=== PATIENT | female | born 1935 | race Caucasian/White ===

== ENCOUNTER 2017-02-12 09:40 | Inpatient (IN) ==
[2017-02-12] MEDS ORDERED: KETOROLAC 30 MG/1 ML VIAL IV STA (10:46)
--- NOTE | 2017-02-12 10:52 | Emergency Department Note ---
Nikunj Palomares Brittany, am scribing for, and in the presence of, Chris Rodriguez MD 10:49. Michael Palomares Thomas, MD, personally performed the services described in this documentation, ascribed by Anali Calvin in my presence, and it is both accurate and complete . Arrival - Arrival Chief Complaint: Back Stated Complaint: back pain upper muscle weakness ED Nursing Triage Note: c/o mid-to upper back pain that started during the night., states she is having muscle spasms in her upper ext bilateral and lower ext bilateral., states she has recently had a medication change for her weakness., states the pain in the back is worse with any type of movement, " I can reach over to roll picker my water and it hurts"., Mode of Arrival: Ambulatory Limitations: No Limitations Source: Patient, RN Notes Reviewed - History of Present Illness HPI Narrative: Patient is a 81 y/o white female presenting to the ED with c/o upper back pain that began overnight. This back pain is worsened upon movement and inspiration. She reports having associated muscle spasms and weakness of bilateral upper extremities, left greater than right. Patient states that she has had a recent change in medication for muscle weakness. Patient reports that she has been wearing an OTC pain patch to the upper back and has taken 6 Extra Strength Tylenol since 299 this morning for this pain with little to no relief, rating current pain an 8/10 on a numeric pain scale. Patient states that she has ran a fever each night for the past few days, nausea, denies any cough, vomiting, abdominal pain, or urinary symptoms. Patient reports having a Bronchoscopy performed per physician of [facility] Pisano for further evaluation s/p ingestion of a pill in her windpipe, affecting her right lung. She notes a history of Pleurisy in her 50's. Patient reports swelling of the lower extremities, but notes that this is chronic and adds that she currently is on Prednisone therapy. Patient denies having any other complaints. Onset (ago): hour(s) Consistency: constant Severity: severe Severity scale (1-10): 8 Quality: aching Allergies/Adverse Reactions: Allergies Allergy/AdvReac Type Severity Reaction Status Date / Time ciprofloxacin [From Cipro] Allergy Mild ITCHING Verified 02/12/17 09:45 gabapentin [From Neurontin] Allergy Mild ITCHING Verified 02/12/17 09:45 acetaminophen Allergy ANAPHYLAXIS Verified 02/12/17 09:45 [From Lorcet ] hydrocodone Allergy ITCHING Verified 02/12/17 09:45 [From Lorcet ] tape Allergy BLISTER Uncoded 02/12/17 09:45 Home Medications: Home Medications Medication Instructions Recorded Confirmed Type Digoxin 125 mcg PO MOWEFR 11/01/14 02/12/17 History Ferrous Sulfate 325 mg PO TID 11/01/14 02/12/17 History Omeprazole [Prilosec] 40 - 60 mg PO DAILY 11/01/14 02/12/17 History Furosemide Tab [Lasix Tab] 20 mg PO BID 11/04/14 02/12/17 History Apixaban [Eliquis] 2.5 mg PO BID #60 tablet 05/12/15 02/12/17 Rx Cyanocobalamin Tab [Vitamin B12 1,000 mcg PO QOTHER DAY 08/26/15 02/12/17 History Tab] Albuterol Inhaler [Proventil 2 puff INH Q6H PRN 03/11/16 02/12/17 History Inhaler] Biotin 1 mg PO DAILY 03/11/16 02/12/17 History Potassium Chloride [Klor-Con M20] 20 meq PO BID 03/11/16 02/12/17 History Metoprolol Succinate 75 mg PO QAM 02/12/17 02/12/17 History Review of System - Review of System 12 point system: reviewed and no additional remarkable complaints except as stated - Review of System Constitutional: Present: fever, weakness Head/Ears/Nose/Throat: Absent: sore throat Respiratory: Present: respiratory distress. Absent: cough Cardiovascular: Absent: palpitations, edema Gastrointestinal: Present: nausea. Absent: vomiting Genitourinary female: Absent: dysuria, frequency, urgency Musculoskeletal: Present: arm pain, back pain Medical,Surgical,& Family Hx - Medical History Cardio: History of: Cardiac Dysrhythmia (A-FIB, SVT), Hypertension, Pacemaker, Cardiovascular Problems (psvt. Patient had ablation done at [facility] twice) Psychological: History of: Anxiety Disorders Neurology: History of: Cerebrovascular Accident No history of: Seizures, Vertigo HEENT: History of: HEENT Problems (CHAD cataract removal) Rheumatology: History of;: Rheumatological Problems (temporal arteritis) Respiratory: No history of: Respiratory Problems Genitourinary: History of: Recurring Urinary Tract Infections No history of: Kidney Stones Gastrointestinal: History of: GERD, Polyps (IN PAST) Musculoskeletal: History of: Musculoskeletal Problems (rt knee surgery and orthoscopic) Hematology: History of: Anemia, Bleeding Problems (reports history of blood transfusion 1950 with no reactions) Other: No history of: Anesthesia Reactions, Malignant Hyperthermia - Surgical History Cardiac Surgeries: Sugical HX of: Cardiac Catheterization Patient Denies: Carotid Endarterectomy Thoracic Surgeries: Patient denies;: Kidney (Renal Surgery), Organ Transplant Neurologic Surgeries: Patient denies: Neurologic Surgery HEENT Surgeries: Patient denies: Carotid Endarterectomy, Eye Surgery, Tonsilectomy & Adenoidectomy Abdominal Surgeries: Surgical HX of: Appendectomy, Cholecystectomy, Colonoscopy , EGD Reproductive Surgeries: Surgical HX of;: Genitourinary Surgery (bladder suspension), Hysterectomy, Tubal Ligation Orthopedic Surgeries: Surgical HX of;: Total Knee Replacement (total right. l. knee arthorscopy) - Family History Family History: Reports;: Family Cancer (father (LUNG)), Family Hypertension ( Father) - Social History Smoking Status: Never smoker Frequency of Alcohol Use: None Type of Drug Use: None Exam Vital Signs: Vital Signs Temperature 97.9 F 02/12/17 10:15 Pulse Rate 88 02/12/17 10:15 Respiratory Rate 16 02/12/17 10:15 Blood Pressure 140/70 02/12/17 10:15 O2 Sat by Pulse Oximetry 97 02/12/17 09:40 - General General appearance: alert, in no apparent distress - Head Head exam: Present: atraumatic, normocephalic - Eye Eye exam: Present: EOMI. Absent: conjunctival injection, periorbital swelling, periorbital tenderness - ENT ENT exam: Present: mucous membranes moist - Neck Neck exam: Present: trachea midline - Chest Chest inspection: Present: symmetric chest wall rise, other (visible discomfort with inspiration) - Respiratory Respiratory exam: Present: normal lung sounds bilaterally. Absent: respiratory distress - Cardiovascular Cardiovascular exam: Present: regular rate, irregular rhythm (irregular rhythm consistent with sinus arrhythmia), normal heart sounds. Absent: normal rhythm - Abdominal Exam Abdominal exam: Present: soft. Absent: distention, tenderness - Extremities Exam Extremities exam: Present: normal capillary refill. Absent: pedal edema, calf tenderness - Back Exam Back exam: Absent: tenderness, muscle spasm, paraspinal tenderness, vertebral tenderness, rashes - Neurological Exam Neurological exam: Present: alert, oriented X3. Absent: motor sensory deficit - Psychiatric Psychiatric exam: Present: normal affect, normal mood - Skin Skin exam: Present: warm, dry, normal color. Absent: rash Course - Reevaluation(s) Reevaluation #1: pain improved, generalized weakness unchanged Time: 13:15 - Consultations Consultation #1: Hospitalist Time: 13:25 Results - Labs CBC & BMP: 02/12/17 11:48 02/12/17 11:48 Lab Results: I have reviewed the patients labs Labs: Laboratory Tests 02/12/17 11:48 WBC 6.0 RBC 1.99 L Hgb 7.4 L Hct 22.4 L MCV 112.6 H MCH 37 H RDW 19.5 H Plt Count 406 H MPV 12.1 H Neut % (Auto) 76.9 H Lymph % (Auto) 11.1 L Lymph # (Auto) 0.7 L Laboratory Tests 02/12/17 11:48 D-Dimer, Quantitative 0.7 Laboratory Tests 02/12/17 11:48 Sodium 133 L Potassium 4.4 Chloride 96 L Carbon Dioxide 29 BUN 19 H Creatinine 1.20 H Glucose 137 H Calculated Osmolality 269.4 L Globulin 3.7 H Albumin/Globulin Ratio 0.9 L - EKG EKG results: interpreted by ERMD, normal axis - Impressions AF with QRS aberrancy vs ventricular ectopy vs ventricular pacer escape beats; NSSTTC; previous EKG paced - Diagnostic Findings Procedure: Chest x-ray: report reviewed by me (Mild platelike subsegmental atelectasis right lung base. Cardiomegaly without overt CHF.), X-ray: report reviewed by me (Thoracic Spine XR: Mild T6 compression fracture which appears chronic, but was not present on March 03, 2016. Osteopenia. Scattered degenerative changes. Pacemaker.) Disposition Clinical Impression: Compression fracture of thoracic vertebra, Generalized weakness, Anemia Case discussed with: patient, patient's family Disposition: Still a Patient Time of Disposition: 13:56
[2017-02-12] MEDS ORDERED: KETOROLAC 30 MG/1 ML VIAL ONE (11:00)
--- NOTE | 2017-02-12 11:41 | XRay Report ---
History: Thoracic pain and cough Date: 02/12/2017 Study: Chest x-ray PA and lateral Comparison exam: Portable chest x-ray March 11, 2016 There is stable mild cardiomegaly. The mediastinal contours are unchanged. The pulmonary vasculature is not engorged. A left subclavian transvenous pacemaker is intact. There is some platelike subsegmental atelectasis in the right lung base. The lungs are otherwise well-expanded and clear. There is no pleural effusion. There is osteopenia and mild thoracic spondylosis. Impression: Mild platelike subsegmental atelectasis right lung base. Cardiomegaly without overt CHF. PROCEDURE INTERPRETED AT [facility] [place] DEPARTMENT OF RADIOLOGY Final Report Signed by: Dr. Rubina Goodson
--- NOTE | 2017-02-12 11:45 | XRay Report ---
History: Back pain Date: 02/12/2017 Study: Thoracic spine AP and lateral Comparison exam: Chest CT March 03, 2016 There is mild anterior wedge compression of what is thought to be the T6 vertebral body on the lateral view. This appears chronic, but was not present in February 2016. There is osteopenia. There is mild thoracic spondylosis and mild scattered degenerative disc narrowing. There is no focal lytic or blastic lesion. A left subclavian transvenous pacemaker is in place. Impression: Mild T6 compression fracture which appears chronic, but was not present on March 03, 2016. Osteopenia. Scattered degenerative changes. Pacemaker PROCEDURE INTERPRETED AT [facility] DEPARTMENT OF RADIOLOGY Final Report Signed by: Dr. Rubina Goodson
[2017-02-12 11:59] LABS: Basophils % 0.7 % (0.0-0.8); Eosinophils # 0.1 10*3/uL (0.0-0.87); Eosinophils % 2.3 % (0.00-10.9); Hematocrit 22.4 VOL% (35.7-47.0); Hemoglobin 7.4 GM/DL (12.0-16.0); Immature Granulocytes % 1.2 %; Immature Granulocytes Absolute 0.07 #; Lymphocytes # 0.7 10*3/uL (1.4-4.0); Lymphocytes % 11.1 % (21.3-54.2); Mean Corpuscular Hemoglobin 37 PG (27-34); Mean Corpuscular Volume 112.6 FL (87-102); Mean Platelet Volume 12.1 FL (9.6-12.0); Monocytes # 0.5 10*3/uL (0.11-0.8); Monocytes % 7.8 % (1.7-12.7); Neutrophils # 4.7 10*3/uL (1.4-7.4); Neutrophils % 76.9 % (38.7-73.9); Platelet Count 406 T/CUMM (130-400); Red Blood Count 1.99 MC/CUMM (3.8-5.5); Red Cell Distribution Width 19.5 % (9.3-17.3)
--- NOTE | 2017-02-12 12:12 | EKG Report ---
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
[2017-02-12 12:38] LABS: Albumin 3.4 G/DL (3.4-5.0); Bilirubin,Total 0.6 MG/DL (0.2-1.0); Calcium 8.7 MG/DL (8.5-10.1); Osmolality,Calculated 269.4 MOS/KG (273-304); Potassium 4.4 MMOL/L (3.5-5.1); Total Protein 7.1 G/DL (6.4-8.3)
[2017-02-12] MEDS ORDERED: SODIUM CHLORIDE 0.9% 250 ML IV PRN (13:55)
[2017-02-12 14:01] LABS: Apearance,Urine CLOUDY (Clear); Bacteria,Urine Occasional /HPF (Few); Bilirubin,Urine Negative (Negative); Blood, Urine Small mg/dL (Negative); Glucose,Urine (UA) Negative (Negative); Ketones,Urine Negative (Negative); Nitrite,Urine Negative (Negative); Protein,Urine Negative; RBC,Urine 95 /HPF (0-4); Squamous Epithelial Cell,Urine Occasional /HPF (0-10); Urine Color Yellow (Yellow); Urine Specific Gravity 1.005 (1.001-1.035); Urine Urobilinogen < 2.0 EU/DL (0.2-1.0); WBC,Urine 220 /HPF (0-6)
[2017-02-12] MEDS ORDERED: ONDANSETRON 4 MG/2 ML VIAL IV PRN (15:29)
[2017-02-12] MEDS: DEXTROSE 5% NACL 0.45% 1,000 ML IV SCH (15:45)
--- NOTE | 2017-02-12 17:14 | Internal Med History&Physical ---
Assessment and Plan (1) History of stroke Status: Chronic Current Visit: Yes (2) History of anticoagulant therapy Problem details: Eliquis Status: Chronic Current Visit: Yes (3) Anemia Status: Chronic Current Visit: Yes (4) Compression fracture of thoracic vertebra Status: Acute Current Visit: Yes (5) Acute lower GI bleeding Status: Acute Current Visit: Yes (6) Chronic atrial fibrillation Status: Chronic Current Visit: No (7) History of temporal arteritis Status: Chronic Current Visit: No (8) Hypertension Status: Chronic Current Visit: Yes Qualifiers: Hypertension type: essential hypertension Qualified Code(s): I10 - Essential (primary) hypertension History of Present Illness Chief complaint: acute and severe back pain History of present illness: Ms. Mclaughlin is a 81 year old female patient of Dr. White with history of B12 deficiency, iron deficiency anemia, history of blood transfusions, GI bleed, atrial fibrillation, stroke and now on Eliquis, pacemaker, history of cardiac ablation, pleurisy and bronchoscopy in [place], temporal arteritis, acid reflux, OA and right knee arthroscopy, who presented to ER with acute thoracic back pain and found to have a T6 compression fracture. Dr. Choe has been consulted to further assess. After her stroke, the discovery was made that she had atrial fibrillation. Two ablations have not converted her, so she is now on digoxin and metoprolol for rate control, and Eliquis for anticoagulation. She has long standing iron deficiency anemia requiring blood transfusions, and was found to be severely anemic here in ER. Blood transfusion ordered for today. Unclear about history and Dr. Everett has been consulted. There may be a blood dyscrasia involved, because she has had problems with this for years that seems to be more severe than a mere iron deficiency. Agree with Dr. Everett and will consult oncology for further evaluation of possible blood dyscrasia. However, she may have issues with absorption of iron and inadequate dietary iron nutritional support, although she takes frequent ferrous sulfate. She historically has been thin. Eliquis is being held 3-[address] Choe to pursue kyphoplasty if he feels she is a candidate for procedure. Eliquis will be restarted post procedure. Using Aspirin 81 mg in the meantime. Granddaughter at bedside, who is Nikunj physical therapist here at hospital. Home Medications Medication Instructions Recorded Confirmed Type Digoxin 125 mcg PO MOWEFR 11/01/14 02/12/17 History Ferrous Sulfate 325 mg PO TID 11/01/14 02/12/17 History Omeprazole [Prilosec] 40 mg PO DAILY 11/01/14 02/12/17 History Furosemide Tab [Lasix Tab] 20 mg PO BID 11/04/14 02/12/17 History Apixaban [Eliquis] 2.5 mg PO BID #60 tablet 05/12/15 02/12/17 Rx Cyanocobalamin Tab [Vitamin B12 1,000 mcg PO QOTHER DAY 08/26/15 02/12/17 History Tab] Albuterol Inhaler [Proventil 2 puff INH Q6H PRN 03/11/16 02/12/17 History Inhaler] Biotin 1 mg PO DAILY 03/11/16 02/12/17 History Potassium Chloride [Klor-Con M20] 20 meq PO BID 03/11/16 02/12/17 History Metoprolol Succinate 75 mg PO QAM 02/12/17 02/12/17 History predniSONE TAB [PredniSONE] 10 mg PO DAILY 02/12/17 02/12/17 History Allergies Allergy/AdvReac Type Severity Reaction Status Date / Time ciprofloxacin [From Cipro] Allergy Mild ITCHING Verified 02/12/17 09:45 gabapentin [From Neurontin] Allergy Mild ITCHING Verified 02/12/17 09:45 acetaminophen Allergy ANAPHYLAXIS Verified 02/12/17 09:45 [From Lorcet 10/650] hydrocodone Allergy ITCHING Verified 02/12/17 09:45 [From Lorcet 10/650] tape Allergy BLISTER Uncoded 02/12/17 09:45 Medical,Surgical,& Family Hx - Medical History Cardio: History of: Cardiac Dysrhythmia (A-FIB, SVT), Hypertension, Pacemaker, Cardiovascular Problems (psvt. Patient had ablation done at [facility] twice; atrial fibrillation) Psychological: History of: Anxiety Disorders Neurology: History of: Cerebrovascular Accident (atrial fibrillation) No history of: Seizures, Vertigo HEENT: History of: HEENT Problems (CHAD cataract removal) Endocrine: No history of: Dyslipidemia Rheumatology: History of;: Rheumatological Problems (temporal arteritis) Respiratory: No history of: Respiratory Problems Genitourinary: History of: Recurring Urinary Tract Infections No history of: Kidney Stones Gastrointestinal: History of: GERD, Polyps (IN PAST) Musculoskeletal: History of: Musculoskeletal Problems (rt knee replacement and orthoscopic) Hematology: History of: Anemia, Bleeding Problems (reports history of blood transfusion 1950 with no reactions) Other: No history of: Anesthesia Reactions, Malignant Hyperthermia - Surgical History Cardiac Surgeries: Sugical HX of: Cardiac Catheterization Patient Denies: Carotid Endarterectomy Thoracic Surgeries: Patient denies;: Kidney (Renal Surgery), Organ Transplant Neurologic Surgeries: Patient denies: Neurologic Surgery HEENT Surgeries: Patient denies: Carotid Endarterectomy, Eye Surgery, Tonsilectomy & Adenoidectomy Abdominal Surgeries: Surgical HX of: Appendectomy, Cholecystectomy, Colonoscopy , EGD Reproductive Surgeries: Surgical HX of;: Genitourinary Surgery (bladder suspension), Hysterectomy, Tubal Ligation Orthopedic Surgeries: Surgical HX of;: Total Knee Replacement (total right. l. knee arthorscopy) - Family History Family History: Reports;: Family Cancer (father (LUNG)), Family Hypertension ( Father) - Social History Smoking Status: Never smoker Frequency of Alcohol Use: None Type of Drug Use: None Functional capacity: independent ambulation - Cardiovascular Cardiovascular: Absent: chest pain at rest, chest pain with activity - Respiratory Respiratory: Absent: dyspnea, dyspnea on exertion - Gastrointestinal Gastrointestinal: Absent: nausea - Musculoskeletal Musculoskeletal: Present: back pain - Neurological Neurological: Absent: memory loss - Psychiatric Psychiatric: Absent: anxiety Exam - Constitutional Vitals: Period Temp Pulse Resp BP Sys/Michael Pulse Ox Last 24 Hr 97.3 F-98.5 F 65-90 16-18 140-150/66-70 96-98 General appearance: no acute distress - Head Head exam: Present: normocephalic - Eye Eye exam: Present: EOMI - Respiratory Respiratory exam: Present: clear to auscultation bilaterally. Absent: rhonchi, wheezes - Cardiovascular Cardiovascular exam: Present: regular rate and rhythm (sounds regular on exam, but has a fib) - GI/Abdominal GI/Abdominal exam: Present: other. Absent: tenderness - Extremities Exam Extremities exam: Absent: edema - Neurological Exam Neurological exam: Present: alert, oriented X3 - Psychiatric Psychiatric exam: Present: normal mood - Skin Skin exam: Present: warm, dry Results - Labs CBC & BMP: 02/13/17 03:11 02/13/17 03:11 Quality Measures - VTE Contraindication to Pharmacological VTE Prophylaxis: High Risk of Bleeding
[2017-02-12 18:01] LABS: Folate > 24.0 NG/ML (5.4-24.0); Vitamin B12 1240 PG/ML (211-911)
--- NOTE | 2017-02-12 18:06 | Gastrointestinal Consult Note ---
Assessment and Plan (1) Macrocytic anemia Status: Acute Assessment and plan: This patient is a macrocytic anemia and states that she has recently been cut back on the amount of vitamin B12 that she takes. Her usual hematocrit is actually around 30% she has not dropped down to 22. She is getting transfused at this time. I have asked for B12, folate and iron studies to be done so that we can get an idea if she is being adequately replaced. With the iron she is taking is difficult to tell whether she is having bleeding due to the black stools. She had dropped her hematocrit before on Xarelto but this was back in 2014 was accompanied by bright red blood per rectum possibly in association with diverticular bleeding. She has had multiple upper and lower endoscopies none of which have shown no bleeding source both of these within the last 2-[address] Perez. If the B12 and folate in the being normal as is the iron studies on recheck this admission would certainly consider doing a capsule endoscopy to complete the endoscopic workup for bleeding source. This could be arranged for Tuesday, provided he can be done with the patient's pacer. If all the above testing is negative she may be a candidate for having a bone marrow check for myelodysplasia which can certainly produce an elevated MCV as well. Current Visit: No (2) History of esophageal stricture Status: Acute Assessment and plan: All the patient has had a history of esophageal stricturing she is not having dysphagia now. The patient stools being guaiac negative and her being scoped as recently as 2015 and not of her scope showing a bleeding source not sure this needs to be repeated at this time. She should probably continue on her PPIs. Current Visit: Yes (3) Personal history of colonic polyps Status: Acute Assessment and plan: The patient was last scoped in January 2015, villous adenoma was discovered at that time which certainly would warrant a repeat in 3 years which would be about now. Patient has discussed further endoscopic evaluation for polyps with Dr. Perez and has decided against further routine evaluation. Again no specific bleeding source has been found on multiple colonoscopies done in the past even with the patient had been actively bleeding previously. Current Visit: Yes (4) History of diverticulitis Status: Acute Assessment and plan: These been seen mostly in the sigmoid in the past. She is not having an episode of diverticulitis now white count is normal. Current Visit: Yes History of Present Illness Chief complaint: Macrocytic anemia of unclear etiology History of present illness: Ms. Mclaughlin is a 81 year old female who typically sees Dr. Perez for her outpatient GI care, and has been worked up extensively for GI issues in the past. Her last upper endoscopy was done by him on 08/27/15 for heartburn and dysphagia. The patient's esophagus demonstrated distal stricture that was dilated to 52 Bulgarian by single pass Mix dilator and a moderate sized hiatal hernia. The stomach and duodenum appear normal. Pathology from previous upper endoscopy on 08/09/13 demonstrated fundic gland polyps and chronic antral gastritis with no Helicobacter pylori. The patient did have a colonoscopy done on 01/06/15 for history of colon polyps and diverticulitis history which demonstrated a villous adenoma in the sigmoid polyp: That was 8 mm in size and pedunculated. There was diverticulosis noted in the colon as well but no mention of hemorrhage. This patient was actually seen on yearly check in the office as recently as 08/09/16, where it noted the patient had suffered a previous TIA and had been on atrial placed on Eliquis for atrial fibrillation. She did not require a repeat dilation at that time. This patient was last seen in the hospital for CBC on 04/21/16 at which time her hematocrit was 30.2. This is about midpoint of her usual range but today she presents with some anemia and her hematocrit has drifted down to 22.4% range. Of interest is that her hemoglobin is 7.4 with an MCV that is quite elevated at 112.6 and RDW of 19.5. Platelet count is normal at 406 as his white blood cell count at 6.0. She states that she has been B12 deficient in the past and that recently her medications have been dropped to once every other day, orally. The patient has had no difficulty with swallowing pain on swallowing abdominal pain but does admit to some slight constipation/diarrhea at times. She tries to get by with stool softening agents. She has not had a capsule endoscopy yet. Home Medications Medication Instructions Recorded Confirmed Type Digoxin 125 mcg PO MOWEFR 11/01/14 02/12/17 History Ferrous Sulfate 325 mg PO TID 11/01/14 02/12/17 History Omeprazole [Prilosec] 40 mg PO DAILY 11/01/14 02/12/17 History Furosemide Tab [Lasix Tab] 20 mg PO BID 11/04/14 02/12/17 History Apixaban [Eliquis] 2.5 mg PO BID #60 tablet 05/12/15 02/12/17 Rx Cyanocobalamin Tab [Vitamin B12 1,000 mcg PO QOTHER DAY 08/26/15 02/12/17 History Tab] Albuterol Inhaler [Proventil 2 puff INH Q6H PRN 03/11/16 02/12/17 History Inhaler] Biotin 1 mg PO DAILY 03/11/16 02/12/17 History Potassium Chloride [Klor-Con M20] 20 meq PO BID 03/11/16 02/12/17 History Metoprolol Succinate 75 mg PO QAM 02/12/17 02/12/17 History predniSONE TAB [PredniSONE] 10 mg PO DAILY 02/12/17 02/12/17 History Allergies Allergy/AdvReac Type Severity Reaction Status Date / Time ciprofloxacin [From Cipro] Allergy Mild ITCHING Verified 02/12/17 09:45 gabapentin [From Neurontin] Allergy Mild ITCHING Verified 02/12/17 09:45 acetaminophen Allergy ANAPHYLAXIS Verified 02/12/17 09:45 [From Lorcet 10/650] hydrocodone Allergy ITCHING Verified 02/12/17 09:45 [From Lorcet 10/650] tape Allergy BLISTER Uncoded 02/12/17 09:45 Medical,Surgical,& Family Hx - Medical History Cardio: History of: Cardiac Dysrhythmia (A-FIB, SVT), Hypertension, Pacemaker, Cardiovascular Problems (psvt. Patient had ablation done at [facility] twice) Psychological: History of: Anxiety Disorders Neurology: History of: Cerebrovascular Accident No history of: Seizures, Vertigo HEENT: History of: HEENT Problems (CHAD cataract removal) Endocrine: No history of: Dyslipidemia Rheumatology: History of;: Rheumatological Problems (temporal arteritis) Respiratory: No history of: Respiratory Problems Genitourinary: History of: Recurring Urinary Tract Infections No history of: Kidney Stones Gastrointestinal: History of: GERD, Polyps (IN PAST) Musculoskeletal: History of: Musculoskeletal Problems (rt knee replacement and orthoscopic) Hematology: History of: Anemia, Bleeding Problems (reports history of blood transfusion 1950 with no reactions) Other: No history of: Anesthesia Reactions, Malignant Hyperthermia - Surgical History Cardiac Surgeries: Sugical HX of: Cardiac Catheterization Patient Denies: Carotid Endarterectomy Thoracic Surgeries: Patient denies;: Kidney (Renal Surgery), Organ Transplant Neurologic Surgeries: Patient denies: Neurologic Surgery HEENT Surgeries: Patient denies: Carotid Endarterectomy, Eye Surgery, Tonsilectomy & Adenoidectomy Abdominal Surgeries: Surgical HX of: Appendectomy, Cholecystectomy, Colonoscopy , EGD Reproductive Surgeries: Surgical HX of;: Genitourinary Surgery (bladder suspension), Hysterectomy, Tubal Ligation Orthopedic Surgeries: Surgical HX of;: Total Knee Replacement (total right. l. knee arthorscopy) - Family History Family History: Reports;: Family Cancer (father (LUNG)), Family Hypertension ( Father) - Social History Smoking Status: Never smoker Frequency of Alcohol Use: None Type of Drug Use: None Review of systems: Constitutional: Denies fever, chills, nausea, and vomiting Eyes: Denies dry eyes, and scleral icterus HENT: Denies headaches Cardiovascular: Denies acute chest pain and claudication Respiratory: Denies shortness of breath, wheezing, and difficulty breathing, denies cough Gastrointestinal: As noted in the HPI Genitourinary: Denies dysuria and hematuria Neurologic: Denies vision loss, and loss of sensation Musculoskeletal: She does have some mild joint stiffness, without swelling or muscular weakness Psychiatric: Denies depression and rebecca symptoms Heme-Lymph: Denies easy bruising, lymph node enlargement or tenderness, night sweats, excessive bleeding Allergies-immunologic: Denies pruritus and rhinorrhea Exam - Constitutional Vitals: Period Temp Pulse Resp BP Sys/Michael Pulse Ox Last 24 Hr 97.3 F-98.5 F 65-90 16-18 140-150/66-70 96-98 General appearance: no acute distress Exam: Constitutional: Well-developed, well-nourished, alert, and in no acute distress Head and face: Head: Normocephalic atraumatic Eyes: Conjunctiva without injection, no gross scleral icterus, pupils equal and round bilaterally Ears: Intact to conversation in both ears Nose: External appearance is normal, nares patent Mouth: Oral mucous membranes moist without erythema dentition noted to be without erosion Neck: Normal appearance, no masses or tenderness, trachea midline Thyroid: Gland midline and appropriate size for age Respiratory: Normal respiratory effort, clear to auscultation without wheezes, rhonchi or rales Cardiovascular: Regular rate and rhythm, normal S1, S2, the exam is without rubs, murmurs or gallops. Gastrointestinal: Nontender to palpation, normal active bowel sounds, tone normal without rigidity or guarding, no masses present, no hepatomegaly, no spleen tip felt. Rectal exam demonstrated good tone no external fissures or fistulas small internal hemorrhoids were present the traces of stool left in the rectal vault for guaiac negative. Lymphatic: Neck without adenopathy, axilla without lymphadenopathy present Musculoskeletal: Right and left lower extremities without evidence of edema Skin and subcutaneous tissue: No rashes or ulcerations noted, normal skin turgor, digits and nails without clubbing/cyanosis/deformities. Neurologic: The patient is grossly oriented to person place and time, cranial nerves show tongue movements are normal with normal tongue extrusion midline, light touch sensation is intact. Psychiatric: No hallucinations or delusions are present, does not appear depressed Results - Labs CBC & BMP: 02/12/17 11:48 02/12/17 11:48 Quality Measures - VTE Contraindication to Pharmacological VTE Prophylaxis: High Risk of Bleeding
[2017-02-12 18:25] LABS: % Iron Saturation 25.2 % (18-50)
[2017-02-12] MEDS: LIDOCAINE 5% PATCH TRANSDERM SCH (20:18)
[2017-02-12] MEDS: DOCUSATE SODIUM 100 MG CAPSULE PO SCH (20:20)
[2017-02-12] MEDS: KETOROLAC 15 MG/1 ML VIAL IV PRN (20:20)
[2017-02-12] MEDS ORDERED: PANTOPRAZOLE 40 MG VIAL IV SCH (21:00)
[2017-02-12] MEDS: traMADol 50 MG TABLET PO SCH (23:26)
[2017-02-13] MEDS: KETOROLAC 15 MG/1 ML VIAL IV PRN ×3 (03:44→20:51)
[2017-02-13] MEDS: DEXTROSE 5% NACL 0.45% 1,000 ML IV SCH ×3 (03:44→14:30)
[2017-02-13 04:34] LABS: Basophils % 0.7 % (0.0-0.8); Eosinophils # 0.3 10*3/uL (0.0-0.87); Eosinophils % 6.3 % (0.00-10.9); Hematocrit 27.5 VOL% (35.7-47.0); Immature Granulocytes % 1.3 %; Immature Granulocytes Absolute 0.07 #; Lymphocytes # 1.3 10*3/uL (1.4-4.0); Lymphocytes % 24.2 % (21.3-54.2); Mean Corpuscular HGB Conc 33.5 GM/DL (32-36); Mean Corpuscular Hemoglobin 35 PG (27-34); Mean Corpuscular Volume 103.4 FL (87-102); Mean Platelet Volume 12.4 FL (9.6-12.0); Monocytes # 0.4 10*3/uL (0.11-0.8); Monocytes % 7.8 % (1.7-12.7); NRBC # 0.02 10*3/uL; Neutrophils # 3.2 10*3/uL (1.4-7.4); Neutrophils % 59.7 % (38.7-73.9); Platelet Count 378 T/CUMM (130-400); White Blood Count 5.4 T/CUMM (4-12)
[2017-02-13 04:59] LABS: Red Blood Count 2.66 MC/CUMM (3.8-5.5)
[2017-02-13 05:00] LABS: Hemoglobin 9.2 GM/DL (12.0-16.0)
[2017-02-13 05:20] LABS: Albumin 3.3 G/DL (3.4-5.0); Bilirubin,Total 1.2 MG/DL (0.2-1.0); Calcium 8.5 MG/DL (8.5-10.1); Magnesium 2.3 MG/DL (1.8-2.4); Osmolality,Calculated 272.1 MOS/KG (273-304); Potassium 4.1 MMOL/L (3.5-5.1); Total Protein 6.6 G/DL (6.4-8.3)
[2017-02-13 05:27] LABS: Folate 20.9 NG/ML (5.4-24.0)
[2017-02-13] MEDS: ASPIRIN EC 81 MG TABLET PO SCH (09:02)
[2017-02-13] MEDS: PANTOPRAZOLE 40 MG TABLET PO SCH (09:03)
[2017-02-13] MEDS: DOCUSATE SODIUM 100 MG CAPSULE PO SCH ×2 (09:03→20:50)
[2017-02-13] MEDS: traMADol 50 MG TABLET PO SCH ×4 (09:03→20:50)
[2017-02-13] MEDS: METOPROLOL SUCCINATE XL 50 MG TABLET PO SCH (09:04)
--- NOTE | 2017-02-13 10:51 | Gastrointestinal Progress Note ---
Assessment and Plan (1) Macrocytic anemia Status: Acute Assessment and plan: This is a patient of Dr. Perez'. Oliva has a macrocytic anemia and states that she has recently been cut back on the amount of vitamin B12 that she takes. Her usual hematocrit is actually around 30% she has not dropped down to 22. She is getting transfused at this time. I have asked for B12, folate and iron studies to be done so that we can get an idea if she is being adequately replaced. With the iron she is taking is difficult to tell whether she is having bleeding due to the black stools. She had dropped her hematocrit before on Xarelto but this was back in 2014 was accompanied by bright red blood per rectum possibly in association with diverticular bleeding. She has had multiple upper and lower endoscopies none of which have shown no bleeding source both of these within the last 2-[address] Perez. If the B12 and folate in the being normal as is the iron studies on recheck this admission would certainly consider doing a capsule endoscopy to complete the endoscopic workup for bleeding source. This could be arranged for Tuesday, provided he can be done with the patient's pacer. If all the above testing is negative she may be a candidate for having a bone marrow check for myelodysplasia which can certainly produce an elevated MCV as well. 02/13/17--This patient takes iron at home, and so I am not surprised that her iron studies are normal, despite her hematocrit of 22.5. She has been taking Xarelto and has previously undergone both upper and lower endoscopy. We discussed the options and I am going to have her undergo capsule endoscopy tomorrow with Dr. Perez to reassume care and to read the procedure tomorrow. If this fails to show a bleeding source it might be time to consider sending this patient to see hematology oncology for potential bone marrow biopsy. Current Visit: No (2) History of esophageal stricture Status: Acute Assessment and plan: All the patient has had a history of esophageal stricturing she is not having dysphagia now. The patient stools being guaiac negative and her being scoped as recently as 2015 and not of her scope showing a bleeding source not sure this needs to be repeated at this time. She should probably continue on her PPIs. 02/13/17--The patient is not having any symptoms at this time. She continues on her PPIs--at home I believe she is taking Prilosec but here she is on pantoprazole 40 mg prior to suppertime. Would consider repeating upper endoscopy if patient develops stricturing symptoms. Current Visit: Yes (3) Personal history of colonic polyps Status: Acute Assessment and plan: The patient was last scoped in January 2015, villous adenoma was discovered at that time which certainly would warrant a repeat in 3 years which would be about now. Patient has discussed further endoscopic evaluation for polyps with Dr. Perez and has decided against further routine evaluation. Again no specific bleeding source has been found on multiple colonoscopies done in the past even with the patient had been actively bleeding previously. 02/13/17--No previous GI bleeding had been noted on prior colonoscopies however villous polyp was removed on the patient's last: As noted above. It might be reasonable to repeat colonoscopy at this time for polyp surveillance however I doubt that the bleeding source will be discovered. Current Visit: Yes (4) History of diverticulitis Status: Resolved Assessment and plan: These been seen mostly in the sigmoid in the past. She is not having an episode of diverticulitis now white count is normal. 02/13/17--the patient is not having any symptoms of diverticulitis and white blood cell count is stable/normal. This is not an active problem. Current Visit: Yes Gastroenterology - PN: Subj Interval history: The patient states that she is having significant back pain but has not noticed any blood in her stools and does feel marginally better with the blood she has had transfused with the increase in hematocrit from 22% up to 27%. Exam (Progress Note) - Constitutional Vitals: Period Temp Pulse Resp BP Sys/Michael Pulse Ox Last 24 Hr 96.9 F-98.9 F 59-90 18-20 111-150/50-82 94-100 General appearance: no acute distress - Head Head exam: Present: normocephalic - Eye Eye exam: Present: EOMI Pupils: Present: ABDIFATAH - Respiratory Respiratory exam: Present: clear to auscultation bilaterally. Absent: rhonchi, stridor, wheezes - Cardiovascular Cardiovascular exam: Present: regular rate and rhythm - GI/Abdominal GI/Abdominal exam: Present: normal bowel sounds, soft. Absent: distended, guarding, tenderness, rebound - Back Exam Back exam: Present: normal inspection - Neurological Exam Neurological exam: Present: alert, oriented X3 - Psychiatric Psychiatric exam: Present: normal affect, normal mood - Skin Skin exam: Present: warm Results - Labs CBC & BMP: 02/13/17 03:11 02/13/17 03:11
[2017-02-13] MEDS: cefTRIAXone 1,000 MG in SODIUM CHLORIDE 0.9% 100 ML IV SCH (11:45)
[2017-02-13 13:04] LABS: Basophils # 0.1 10*3/uL (0.0-0.2); Basophils % 1.2 % (0.0-0.8); Eosinophils # 0.3 10*3/uL (0.0-0.87); Eosinophils % 6.7 % (0.00-10.9); Hematocrit 28.7 VOL% (35.7-47.0); Hemoglobin 9.4 GM/DL (12.0-16.0); Immature Granulocytes Absolute 0.05 #; Lymphocytes # 1.2 10*3/uL (1.4-4.0); Lymphocytes % 23.7 % (21.3-54.2); Mean Corpuscular HGB Conc 32.8 GM/DL (32-36); Mean Corpuscular Hemoglobin 35 PG (27-34); Mean Corpuscular Volume 105.5 FL (87-102); Mean Platelet Volume 12.1 FL (9.6-12.0); Monocytes # 0.4 10*3/uL (0.11-0.8); Monocytes % 8.7 % (1.7-12.7); Neutrophils % 58.7 % (38.7-73.9); Platelet Count 336 T/CUMM (130-400); Red Blood Count 2.72 MC/CUMM (3.8-5.5); Red Cell Distribution Width 22.2 % (9.3-17.3); White Blood Count 5.1 T/CUMM (4-12)
[2017-02-13 13:17] LABS: % Iron Saturation 28.4 % (18-50)
[2017-02-13 13:35] LABS: Anisocytosis 1+; Eosinophils 7 % (0-10); Lymphocytes 25 % (20-55); Segmented Neutrophils 61 % (50-85); Total Cells Counted 100
[2017-02-13 13:36] LABS: Hypochromasia Slight
[2017-02-13 13:37] LABS: Macrocytosis 1+
[2017-02-13 13:38] LABS: Elliptocytes Few; Platelet Estimate Adequate; Schistocytes Few
--- NOTE | 2017-02-13 16:48 | Pain Management Consult Note ---
Assessment and Plan (1) Compression fracture of thoracic vertebra Problem details: T6 fracture with new onset pain Status: Acute Assessment and plan: 02/13/2017. The patient is very pleasant 81-year-old female who is doing well in regards to pain until 2 days ago when she in the evening developed severe interscapular pain. The pain is worse with any movement. The pain is so bad that she can only out of bed with assistance. X-ray demonstrates a T6 wedge fracture approximately 30%. She has a pacemaker and at this time cannot have a MRI. She reports a remote history of vertebral fractures 30 years ago. This fracture was not present in February 2016 on x-ray. Will get a bone scan to confirm this level fracture and help rule out at the levels of fracture. She is a candidate for kyphoplasty given the severity of her pain new onset of her fracture in conjunction with the pain. Will consider proceeding with kyphoplasty on Tuesday of this coming week if she has been off the Eliquis for adequate period of time. Please note the patient came in anemic and required transfusion. She reports severe malaise and fatigue for the past 2 months that is progressively gotten worse. Y Current Visit: Yes Qualifiers: Encounter type: initial encounter Fracture type: closed Qualified Code(s) : S22.000A - Wedge compression fracture of unspecified thoracic vertebra, initial encounter for closed fracture History of Present Illness Chief complaint: Interscapular pain History of present illness: Ms. Mclaughlin is a 81 year old female who has a 2 day history of severe interscapular pain started spontaneously. She denies any injury. She describes it as a throbbing aching stabbing pain worse with any movement. Her ability to do anything but get out of bed with assistance is nonexistent Home Medications Medication Instructions Recorded Confirmed Type Digoxin 125 mcg PO MOWEFR 11/01/14 02/12/17 History Ferrous Sulfate 325 mg PO TID 11/01/14 02/12/17 History Omeprazole [Prilosec] 40 mg PO DAILY 11/01/14 02/12/17 History Furosemide Tab [Lasix Tab] 20 mg PO BID 11/04/14 02/12/17 History Apixaban [Eliquis] 2.5 mg PO BID #60 tablet 05/12/15 02/12/17 Rx Cyanocobalamin Tab [Vitamin B12 1,000 mcg PO QOTHER DAY 08/26/15 02/12/17 History Tab] Albuterol Inhaler [Proventil 2 puff INH Q6H PRN 03/11/16 02/12/17 History Inhaler] Biotin 1 mg PO DAILY 03/11/16 02/12/17 History Potassium Chloride [Klor-Con M20] 20 meq PO BID 03/11/16 02/12/17 History Metoprolol Succinate 75 mg PO QAM 02/12/17 02/12/17 History predniSONE TAB [PredniSONE] 10 mg PO DAILY 02/12/17 02/12/17 History Allergies Allergy/AdvReac Type Severity Reaction Status Date / Time ciprofloxacin [From Cipro] Allergy Mild ITCHING Verified 02/12/17 09:45 gabapentin [From Neurontin] Allergy Mild ITCHING Verified 02/12/17 09:45 acetaminophen Allergy ANAPHYLAXIS Verified 02/12/17 09:45 [From Lorcet 10/650] hydrocodone Allergy ITCHING Verified 02/12/17 09:45 [From Lorcet 10/650] tape Allergy BLISTER Uncoded 02/12/17 09:45 Medical,Surgical,& Family Hx - Medical History Cardio: History of: Cardiac Dysrhythmia (A-FIB, SVT), Hypertension, Pacemaker, Cardiovascular Problems (psvt. Patient had ablation done at [facility] twice; atrial fibrillation) Psychological: History of: Anxiety Disorders Neurology: History of: Cerebrovascular Accident (atrial fibrillation) No history of: Seizures, Vertigo HEENT: History of: HEENT Problems (CHAD cataract removal) Endocrine: No history of: Dyslipidemia Rheumatology: History of;: Rheumatological Problems (temporal arteritis) Respiratory: No history of: Respiratory Problems Genitourinary: History of: Recurring Urinary Tract Infections No history of: Kidney Stones Gastrointestinal: History of: GERD, Polyps (IN PAST) Musculoskeletal: History of: Musculoskeletal Problems (rt knee replacement and orthoscopic) Hematology: History of: Anemia, Bleeding Problems (reports history of blood transfusion 1950 with no reactions) Other: No history of: Anesthesia Reactions, Malignant Hyperthermia - Surgical History Cardiac Surgeries: Sugical HX of: Cardiac Catheterization Patient Denies: Carotid Endarterectomy Thoracic Surgeries: Patient denies;: Kidney (Renal Surgery), Organ Transplant Neurologic Surgeries: Patient denies: Neurologic Surgery HEENT Surgeries: Patient denies: Carotid Endarterectomy, Eye Surgery, Tonsilectomy & Adenoidectomy Abdominal Surgeries: Surgical HX of: Appendectomy, Cholecystectomy, Colonoscopy , EGD Reproductive Surgeries: Surgical HX of;: Genitourinary Surgery (bladder suspension), Hysterectomy, Tubal Ligation Orthopedic Surgeries: Surgical HX of;: Total Knee Replacement (total right. l. knee arthorscopy) - Family History Family History: Reports;: Family Cancer (father (LUNG)), Family Hypertension ( Father) - Social History Smoking Status: Never smoker Frequency of Alcohol Use: None Type of Drug Use: None Quality Measures - VTE Contraindication to Pharmacological VTE Prophylaxis: High Risk of Bleeding - Constitutional Constitutional: Present: fatigue, lethargy, weakness - Cardiovascular Cardiovascular: Present: dyspnea on exertion - Musculoskeletal Musculoskeletal: Present: arthralgias, back pain, joint swelling Exam - Constitutional Vitals: Period Temp Pulse Resp BP Sys/Michael Pulse Ox Last 24 Hr 96.9 F-98.9 F 59-93 18-20 111-146/50-82 94-100 General appearance: mild distress, under weight - Respiratory Respiratory exam: Present: clear to auscultation bilaterally - Cardiovascular Cardiovascular exam: Present: RRR - GI/Abdominal GI/Abdominal exam: Present: normal bowel sounds - Back Exam Back exam: Present: vertebral tenderness (Upper thoracic spine) - Neurological Exam Neurological exam: Present: alert, oriented X3, CN II-XII intact Speech: Present: normal Results - Labs CBC & BMP: 02/13/17 12:37 02/13/17 03:11
[2017-02-13] MEDS: methylPREDNISolone SOD SUC 40 MG/1 ML VIAL IV SCH (17:35)
[2017-02-13] MEDS ORDERED: MAGNESIUM CITRATE 300 ML BOTTLE PO ONE (18:30)
[2017-02-13] MEDS: LIDOCAINE 5% PATCH TRANSDERM SCH (20:52)
--- NOTE | 2017-02-13 21:01 | Internal Med Progress Note ---
Assessment and Plan (1) History of stroke Status: Chronic Current Visit: Yes (2) History of anticoagulant therapy Problem details: Eliquis Status: Chronic Current Visit: Yes (3) Anemia Status: Chronic Current Visit: Yes (4) Compression fracture of thoracic vertebra Problem details: T6 fracture with new onset pain Status: Acute Current Visit : Yes Qualifiers: Encounter type: initial encounter Fracture type: closed Qualified Code(s) : S22.000A - Wedge compression fracture of unspecified thoracic vertebra, initial encounter for closed fracture (5) Acute lower GI bleeding Status: Acute Current Visit: Yes (6) Chronic atrial fibrillation Status: Chronic Current Visit: No (7) History of temporal arteritis Status: Chronic Current Visit: No (8) Hypertension Status: Chronic Current Visit: Yes Qualifiers: Hypertension type: essential hypertension Qualified Code(s): I10 - Essential (primary) hypertension Internal Medicine - PN: Subj Interval history: Ms. Mclaughlin is a 81 year old female patient of Dr. White with history of B12 deficiency, iron deficiency anemia, history of blood transfusions, GI bleed, atrial fibrillation, stroke and now on Eliquis, pacemaker, history of cardiac ablation, pleurisy and bronchoscopy in [place], temporal arteritis, acid reflux, OA and right knee arthroscopy, who presented to ER with acute thoracic back pain and found to have a T6 compression fracture. Dr. Choe has been consulted to further assess. After her stroke, the discovery was made that she had atrial fibrillation. Two ablations have not converted her, so she is now on digoxin and metoprolol for rate control, and Eliquis for anticoagulation. She has long standing iron deficiency anemia requiring blood transfusions, and was found to be severely anemic here in ER. Blood transfusion ordered for today. Unclear about history and Dr. Everett has been consulted. There may be a blood dyscrasia involved, because she has had problems with this for years that seems to be more severe than a mere iron deficiency. Agree with Dr. Everett and will consult oncology for further evaluation of possible blood dyscrasia. However, she may have issues with absorption of iron and inadequate dietary iron nutritional support, although she takes frequent ferrous sulfate. She historically has been thin. Eliquis is being held 3-[address] Choe to pursue kyphoplasty if he feels she is a candidate for procedure. Eliquis will be restarted post procedure. Using Aspirin 81 mg in the meantime. Tuesday, she reports that Toradol helps back pain to some extent, but not enough. Solumedrol will be started. She has been on Prednisone for months for temporal arteritis. She has only missed one day without corticosteroid and will have Solumedrol while here. Exam (Progress Note) - Constitutional Vitals: Period Temp Pulse Resp BP Sys/Michael Pulse Ox Last 24 Hr 96.9 F-100.1 F 59-93 18-20 115-146/52-70 91-99 General appearance: no acute distress - Respiratory Respiratory exam: Present: clear to auscultation bilaterally - Cardiovascular Cardiovascular exam: Present: regular rate and rhythm (chronic a fib; pacemaker ; sounds regular on exam) - GI/Abdominal GI/Abdominal exam: Present: soft. Absent: tenderness - Extremities Exam Extremities exam: Absent: edema - Neurological Exam Neurological exam: Present: alert, oriented X3 - Psychiatric Psychiatric exam: Present: normal mood - Skin Skin exam: Present: warm, dry Results - Labs CBC & BMP: 02/13/17 12:37 02/13/17 03:11 Quality Measures - VTE Contraindication to Pharmacological VTE Prophylaxis: High Risk of Bleeding
[2017-02-14] MEDS: DEXTROSE 5% NACL 0.45% 1,000 ML IV SCH (00:16)
[2017-02-14] MEDS: KETOROLAC 15 MG/1 ML VIAL IV PRN ×3 (04:23→21:22)
[2017-02-14] MEDS: methylPREDNISolone SOD SUC 40 MG/1 ML VIAL IV SCH ×2 (05:51→21:23)
--- NOTE | 2017-02-14 07:37 | Oncology Consult Note ---
History of Present Illness History of present illness: Ms. Mclaughlin is a 81 year old female that I have been consulted on for microcytic anemia. I have discussed her case with Dr. White. She has long-standing anemia. She has been on Eliquis for atrial fibrillation and has required blood transfusions from time to time. She tells me that she is recently had a normal upper and lower endoscopy done and Dr. White confirms this. Microcytic anemia can be caused by hypothyroidism and she tells me that she has had thyroid studies performed recently. We can also be caused by liver disease but she tells me that she has no history of liver disease and her transaminases are normal. Lab work already performed includes: White cell count 5100 with a low absolute lymphocyte count of 1200 Hemoglobin 9.4 with MCV of 105.5 Platelet count 336,000 Serum iron 71 with total iron-binding capacity of 282 B12 1525 with a folic acid level of 20.9 Low serum albumin of 3.3 with normal globulins of 3.3 Blood studies that I am ordering include: Haptoglobin level Reticulocyte count Serum protein electrophoresis Serum immunoelectrophoresis Serum free light chain assay LDH Direct Antibody Test A reticulocyte count has already been ordered. Past medical history: Allergies: Ciprofloxacin, gabapentin, hydrocodone and adhesive tape Past medical history is positive for compression fracture of the thoracic spine , acute lower GI bleeding, chronic atrial fibrillation, temporal arteritis and hypertension. Social history: She does not use alcohol or tobacco Family history: Lung cancer in her father. He was a smoker. Her mother had a history of hemolytic anemia due to cold antibodies. She was actually treated for this with chemotherapy. Review of systems: She has been chronically anemic. Eyes: No recent loss of vision or eye pain. ENT: She says that when her temporal arteritis flares up that she has earaches and jaw pain. Pulmonary: No history of asthma, emphysema or pneumonia or bronchospastic lung disease. Cardiovascular: Positive for atrial fibrillation and CVA. She has had 2 ablations performed that was unsuccessful in resolving her atrial fibrillation GI: No recent history of GI blood loss, either upper or lower. : No history of kidney disease or hematuria. Musculoskeletal: Positive for temporal arteritis and she does have degenerative arthritic changes in her hands. Neurologic: CVA at the time of the initial diagnosis of atrial fibrillation. This has resolved. Physical examination: General: She appears to be her stated age. She does not appear acutely ill presently. Eyes: Normal lids and conjunctivae. ENT: Her oral mucosa and oropharynx are normal. Her hearing is normal. Teeth are in fair repair. Neck: I cannot palpate any neck masses and her thyroid appears normal. Her trachea is midline her voice is clear. Lungs: Breath sounds are normal throughout without rubs, rales or rhonchi and there is symmetrical unlabored chest motion with respiration. Cardiovascular: Currently her heart rhythm is regular. There is no jugular venous distention, clubbing or cyanosis. Abdomen: No ascite, organomegaly, abdominal tenderness and specifically no splenomegaly. Musculoskeletal: Degenerative arthritis of the hands, moderate. No focal muscle atrophy or bone or joint deformity. Neurologic: I detect no focal neurologic deficits. Nodes: No cervical, supraclavicular or axillary adenopathy and no submandibular adenopathy Skin: Cursory examination is normal. As listed above, I have ordered additional diagnostic studies. This is long- standing anemia that required blood transfusions very infrequently. Her platelet count is normal except for a slight increase in MPV. Her white cell count is normal except for a low absolute lymphocyte count but she is on steroid therapy that can be lymphocytic. Thank you for consulting me. I will follow her with you. Home Medications Medication Instructions Recorded Confirmed Type Digoxin 125 mcg PO MOWEFR 11/01/14 02/12/17 History Ferrous Sulfate 325 mg PO TID 11/01/14 02/12/17 History Omeprazole [Prilosec] 40 mg PO DAILY 11/01/14 02/12/17 History Furosemide Tab [Lasix Tab] 20 mg PO BID 11/04/14 02/12/17 History Apixaban [Eliquis] 2.5 mg PO BID #60 tablet 05/12/15 02/12/17 Rx Cyanocobalamin Tab [Vitamin B12 1,000 mcg PO QOTHER DAY 08/26/15 02/12/17 History Tab] Albuterol Inhaler [Proventil 2 puff INH Q6H PRN 03/11/16 02/12/17 History Inhaler] Biotin 1 mg PO DAILY 03/11/16 02/12/17 History Potassium Chloride [Klor-Con M20] 20 meq PO BID 03/11/16 02/12/17 History Metoprolol Succinate 75 mg PO QAM 02/12/17 02/12/17 History predniSONE TAB [PredniSONE] 10 mg PO DAILY 02/12/17 02/12/17 History Allergies Allergy/AdvReac Type Severity Reaction Status Date / Time ciprofloxacin [From Cipro] Allergy Mild ITCHING Verified 02/12/17 09:45 gabapentin [From Neurontin] Allergy Mild ITCHING Verified 02/12/17 09:45 hydrocodone Allergy ITCHING Verified 02/12/17 09:45 [From Lorcet 10/650] tape Allergy BLISTER Uncoded 02/12/17 09:45 Medical,Surgical,& Family Hx - Medical History Cardio: History of: Cardiac Dysrhythmia (A-FIB, SVT), Hypertension, Pacemaker, Cardiovascular Problems (psvt. Patient had ablation done at [facility] twice; atrial fibrillation) Psychological: History of: Anxiety Disorders Neurology: History of: Cerebrovascular Accident (atrial fibrillation) No history of: Seizures, Vertigo HEENT: History of: HEENT Problems (CHAD cataract removal) Endocrine: No history of: Dyslipidemia Rheumatology: History of;: Rheumatological Problems (temporal arteritis) Respiratory: No history of: Respiratory Problems Genitourinary: History of: Recurring Urinary Tract Infections No history of: Kidney Stones Gastrointestinal: History of: GERD, Polyps (IN PAST) Musculoskeletal: History of: Musculoskeletal Problems (rt knee replacement and orthoscopic) Hematology: History of: Anemia, Bleeding Problems (reports history of blood transfusion 1950 with no reactions) Other: No history of: Anesthesia Reactions, Malignant Hyperthermia - Surgical History Cardiac Surgeries: Sugical HX of: Cardiac Catheterization Patient Denies: Carotid Endarterectomy Thoracic Surgeries: Patient denies;: Kidney (Renal Surgery), Organ Transplant Neurologic Surgeries: Patient denies: Neurologic Surgery HEENT Surgeries: Patient denies: Carotid Endarterectomy, Eye Surgery, Tonsilectomy & Adenoidectomy Abdominal Surgeries: Surgical HX of: Appendectomy, Cholecystectomy, Colonoscopy , EGD Reproductive Surgeries: Surgical HX of;: Genitourinary Surgery (bladder suspension), Hysterectomy, Tubal Ligation Orthopedic Surgeries: Surgical HX of;: Total Knee Replacement (total right. l. knee arthorscopy) - Family History Family History: Reports;: Family Cancer (father (LUNG)), Family Hypertension ( Father) - Social History Smoking Status: Never smoker Frequency of Alcohol Use: None Type of Drug Use: None Exam - Constitutional Vitals: Period Temp Pulse Resp BP Sys/Michael Pulse Ox Last 24 Hr 97.2 F-100.1 F 66-93 18-20 128-164/54-72 91-97 Results - Labs CBC & BMP: 02/13/17 12:37 02/13/17 03:11 Quality Measures - VTE Contraindication to Pharmacological VTE Prophylaxis: High Risk of Bleeding
[2017-02-14] MEDS ORDERED: FUROSEMIDE 40 MG TABLET PO ONE (08:36)
[2017-02-14] MEDS ORDERED: DEXTROSE 5% NACL 0.45% 1,000 ML IV SCH (09:00)
--- NOTE | 2017-02-14 09:07 | Internal Med Progress Note ---
Assessment and Plan (1) Acute lower GI bleeding Status: Acute Assessment and plan: 81-year-old female admitted to acute * Symptomatic anemia with possible lower GI bleeding. She is being evaluated by GI as well as hematology. * Chronic A. fib. Patient has been on anticoagulation. We are holding it for now * Temporal arteritis. Her steroids are being tapered * Mild fluid overload. Will decrease her fluids and give her Lasix 40 mg p.o. * Hypertension. Blood pressure is stable Current Visit: Yes (2) Compression fracture of thoracic vertebra Problem details: T6 fracture with new onset pain Status: Acute Current Visit : Yes Qualifiers: Encounter type: initial encounter Fracture type: closed Qualified Code(s) : S22.000A - Wedge compression fracture of unspecified thoracic vertebra, initial encounter for closed fracture (3) Generalized weakness Status: Acute Current Visit: Yes (4) Anemia Status: Chronic Current Visit: Yes (5) History of anticoagulant therapy Problem details: Eliquis Status: Chronic Current Visit: Yes (6) History of stroke Status: Chronic Current Visit: Yes (7) Chronic atrial fibrillation Status: Chronic Current Visit: No (8) History of temporal arteritis Status: Chronic Current Visit: No Internal Medicine - PN: Subj Interval history: Patient is seen and examined. Chart has been reviewed. Patient is 81-year-old female with history of multiple medical problems. Patient has history of atrial fibrillation, hypertension, chronic anemia, COPD. She has been on chronic steroids for temporal arteritis. Patient was found to have a compression fracture at T6 level. She has been in a lot of pain. She has been seen by pain clinic. She will undergo kyphoplasty. She has undergone evaluation by GI and Dr. Blackwell has seen her for anemia. Exam (Progress Note) - Constitutional Vitals: Period Temp Pulse Resp BP Sys/Michael Pulse Ox Last 24 Hr 96.6 F-100.1 F 66-94 18-20 128-164/54-88 91-97 Exam: Examination: GENERAL: NAD. She is in some discomfort when she moves. HEENT: PERRLA. EOMI. Mucous membranes are moist. NECK: Neck is supple. No JVD. No carotid bruit. No thyromegaly. CVS: Regular rate and rhythm. S1 and S2 are normal. RESPIRATORY: Lungs are clear. Few rales at the bases ABDOMEN: Soft and nontender. Bowel sounds are present. No hepatosplenomegaly. EXT: No edema. Peripheral pulses are present. EDUCATIONAL PARAPROFESSIONAL: Patient is awake, alert and oriented to time place and person. Cranial nerves II through XII are grossly intact. Motor strength is 3-4/5 SKIN: Warm and dry. MSK: No obvious deformity. Results - Labs CBC & BMP: 02/13/17 12:37 02/13/17 03:11 Lab Results: I have reviewed the past 24 hour labs Quality Measures - VTE Contraindication to Pharmacological VTE Prophylaxis: High Risk of Bleeding
[2017-02-14] MEDS: traMADol 50 MG TABLET PO SCH ×4 (09:14→21:23)
[2017-02-14] MEDS: METOPROLOL SUCCINATE XL 50 MG TABLET PO SCH (09:15)
[2017-02-14] MEDS: PANTOPRAZOLE 40 MG TABLET PO SCH (09:15)
[2017-02-14] MEDS: ASPIRIN EC 81 MG TABLET PO SCH (09:15)
[2017-02-14] MEDS: METHOCARBAMOL 750 MG TABLET PO PRN ×2 (09:15→17:02)
[2017-02-14] MEDS: DOCUSATE SODIUM 100 MG CAPSULE PO SCH ×2 (09:16→21:23)
[2017-02-14] MEDS: cefTRIAXone 1,000 MG in SODIUM CHLORIDE 0.9% 100 ML IV SCH (09:16)
[2017-02-14 09:37] LABS: Basophils % 0.2 % (0.0-0.8); Eosinophils % 0.2 % (0.00-10.9); Hematocrit 29.1 VOL% (35.7-47.0); Hemoglobin 9.9 GM/DL (12.0-16.0); Immature Granulocytes % 1.1 %; Immature Granulocytes Absolute 0.11 #; Lymphocytes # 0.5 10*3/uL (1.4-4.0); Lymphocytes % 5.6 % (21.3-54.2); Mean Corpuscular Hemoglobin 35 PG (27-34); Mean Corpuscular Volume 102.8 FL (87-102); Mean Platelet Volume 12.4 FL (9.6-12.0); Monocytes # 0.3 10*3/uL (0.11-0.8); Monocytes % 3.4 % (1.7-12.7); Neutrophils # 8.6 10*3/uL (1.4-7.4); Neutrophils % 89.5 % (38.7-73.9); Platelet Count 388 T/CUMM (130-400); Red Blood Count 2.83 MC/CUMM (3.8-5.5); Red Cell Distribution Width 20.9 % (9.3-17.3); White Blood Count 9.6 T/CUMM (4-12)
[2017-02-14 10:16] LABS: Albumin 3.4 G/DL (3.4-5.0); Bilirubin,Total 0.5 MG/DL (0.2-1.0); Calcium 8.7 MG/DL (8.5-10.1); Osmolality,Calculated 270.4 MOS/KG (273-304); Potassium 5.3 MMOL/L (3.5-5.1); Total Protein 7.1 G/DL (6.4-8.3)
[2017-02-14 10:26] LABS: Total Protein 7.2 G/DL (6.4-8.3)
--- NOTE | 2017-02-14 11:18 | Gastrointestinal Progress Note ---
<Mackenzie Garciaher Curtis - Last Filed: 02/14/17 11:13> Assessment and Plan (1) Anemia Status: Chronic Assessment and plan: 02/14-admitted with severe back pain for tentative plan of kyphoplasty tomorrow with Eliquis being held. Findings of hemoglobin of 7, posttransfusion 2 units packed red blood cells with hemoglobin now 9. Symptomatic over last 2 weeks with weakness and shortness of breath. Small bowel PillCam canceled due to pacemaker. Stools for occult blood are pending. Hematology workup ongoing. Plan an addendum to followed by Dr. Perez. Current Visit: Yes Gastroenterology - PN: Subj Interval history: CC: Anemia Patient is seen awake and alert lying in bed. She was admitted on 02/12 with complaints of severe back pain. Upon admission she was also found to be anemic. She has a history of anticoagulant use with Eliquis however this was currently being held on admission due to possible kyphoplasty procedure with Dr. Choe for compression fracture of her thoracic vertebrae. She is noted to be on the Eliquis for history of atrial fibrillation and history of CVA in the past. She was found on admission to have a hemoglobin of 7.4. She was transfused 2 units of packed red blood cells at that time and hemoglobin is currently stable at 9.9. She also had iron studies done on admission with no acute findings however she has an elevated B12 and folate levels noted. She has had fairly recent endoscopy workup with EGD in August 2015 with findings of heartburn and dysphagia and last colonoscopy noted in January 2015 with findings of polyps (villous adenoma ) and diverticulosis. She also is noted to have a history of temporal arteritis and she is on steroid therapy. She was for a small bowel PillCam this morning however there is a contraindication due to her pacemaker and this was unable to be achieved. Abdomen soft, nontender. She is denying any overt bleeding. Dr. Blackwell is been consulted due to history of anemia and blood transfusions in the past and hematology workup is ongoing. ROS: Denies shortness of breath or chest pain Exam (Progress Note) - Constitutional Vitals: Period Temp Pulse Resp BP Sys/Michael Pulse Ox Last 24 Hr 96.6 F-100.1 F 66-94 18-20 128-164/54-88 91-97 General appearance: normal weight, no acute distress - Head Head exam: Present: normal inspection, normocephalic - Eye Eye exam: Present: other (Lids and conjunctive are unremarkable). Absent: scleral icterus - ENT ENT exam: Present: normal exam, normal oropharynx - Neck Neck exam: Present: normal inspection - Respiratory Respiratory exam: Present: clear to auscultation bilaterally. Absent: rales, rhonchi, wheezes - Cardiovascular Cardiovascular exam: Present: regular rate and rhythm. Absent: diastolic murmur , JVD, systolic murmur - GI/Abdominal GI/Abdominal exam: Present: normal bowel sounds, soft. Absent: ascites, distended, mass, organomegaly, tenderness - Extremities Exam Extremities exam: Present: normal inspection, full ROM - Back Exam Back exam: Present: normal inspection - Neurological Exam Neurological exam: Present: alert, oriented X3 - Psychiatric Psychiatric exam: Present: normal affect, normal mood - Skin Skin exam: Present: normal color, warm, dry Results - Labs CBC & BMP: 02/14/17 08:56 02/14/17 08:56 Lab Results: I have reviewed the past 24 hour labs <Pedro Luis Perez - Last Filed: 02/14/17 18:03> Exam (Progress Note) - Constitutional Vitals: Period Temp Pulse Resp BP Sys/Michael Pulse Ox Last 24 Hr 96.6 F-100.1 F 67-98 16-23 141-164/61-88 91-96 Results - Labs CBC & BMP: 02/14/17 08:56 02/14/17 08:56
--- NOTE | 2017-02-14 12:44 | XRay Report ---
History: Shortness of breath Date: 02/14/2017 Study: Chest x-ray PA and lateral Comparison exam: February 12, 2017 There is continued cardiomegaly. The pulmonary vasculature is slightly prominent. The mediastinal contour is unchanged. There is trace bilateral pleural effusion. There is developing interstitial edema in the mid to lower lungs which has occurred since the previous study. Sabi's B lines are noted in either lung base. There is some platelike subsegmental atelectasis in the right suprahilar area. There is some early right patchy perihilar alveolar edema. A left subclavian transvenous pacemaker is stable in appearance. Osseous structures are unchanged. Impression: Interval development of congestive heart failure with pulmonary edema and minimal bilateral pleural effusion as discussed above PROCEDURE INTERPRETED AT [facility] DEPARTMENT OF RADIOLOGY Final Report Signed by: Dr. Rubina Goodson
[2017-02-14] MEDS: DIGOXIN 0.125 MG TABLET PO SCH (13:12)
--- NOTE | 2017-02-14 15:52 | Cardiology Consult Note ---
Courtney Palomares April RN, am scribing for, and in the presence of, Joseph Dodd MD 15:52. Assessment and Plan - Time spent with patient Time spent with patient: Greater than 30 minutes (Due to assessment, planning, documentation, medication review) (1) Hypertension Status: Chronic Current Visit: Yes Qualifiers: Hypertension type: essential hypertension Qualified Code(s): I10 - Essential (primary) hypertension (2) Acute lower GI bleeding Status: Acute Assessment and plan: GI is following. Stools for occult blood are pending Current Visit: Yes (3) Pacemaker Status: Chronic Current Visit: Yes (4) Compression fracture of thoracic vertebra Problem details: T6 fracture with new onset pain Status: Acute Assessment and plan: She continues to have back pain. Dr. Choe has been consulted and will be following. Current Visit: Yes Qualifiers: Encounter type: initial encounter Fracture type: closed Qualified Code(s) : S22.000A - Wedge compression fracture of unspecified thoracic vertebra, initial encounter for closed fracture (5) Generalized weakness Status: Acute Current Visit: Yes (6) Anemia Status: Acute Assessment and plan: She was transfused 2 units of blood product and her H&H has improved. Eliquis is currently being held. Hematology workup by Dr. Blackwell is ongoing. Current Visit: Yes (7) History of anticoagulant therapy Problem details: Eliquis Status: Chronic Assessment and plan: She takes Eliquis for history of edge fibrillation and stroke. Eliquis is currently on hold. Current Visit: Yes (8) History of stroke Status: Chronic Current Visit: No History of Present Illness - Data of Consult Patient: known to practice within the last 3 years Consult date: 02/14/17 Requesting Physician: Ryan White Primary care physician: Ryan White - Consult Narrative Reason for consult: To manage blood pressure History of present illness: Bottle Filler: Dr. Dodd PCP: Dr. White Ms. Mclaughlin is a 81 year old female with a history of stroke, anemia, GERD, hypertension, chronic A. fib, and temporal arteritis. She had single chamber pacemaker placed November 04, 2014 for chronic atrial fibrillation with symptomatic severe bradycardia. Stress test in May 09, 2015 was felt to be a normal study and did not suggest presence of significant coronary ischemia. She is chronically anticoagulated on Eliquis. She also has a history of SVT which was treated with ablation at [facility]. Other surgical history includes hysterectomy, right total knee, bilateral cataracts, cholecystectomy, and appendectomy. Family history includes father with lung cancer and hypertension and mother with hypertension. She reports she is a lifetime non-smoker. She presented to the emergency department at [facility] on February 12 with complaints of mid to upper back pain and was found to have a T6 compression fracture. Dr. Choe was consulted and has seen patient. She also reports experiencing dyspnea on exertion and weakness since the middle of December. Her blood pressure has been elevated somewhat, this morning is 154/ 88. Her Eliquis is being held. H&H on admission was 7.4 and 22.4, she was transfused 2 units of red blood cells. H&H this morning is 9.[address] Blackwell has been consulted and has seen patient. She says she takes iron and is unable to determine if she has had any blood in her stool, but she has not noticed any bright red blood. Urine culture with gram-positive cocci. She is on appropriate IV antibiotics. She denies any chest pain or palpitations. She reports she began coughing and wheezing this morning and is coughing up phlegm. Chest x-ray has been ordered. This afternoon she has had progressive worsening dyspnea with wheezing. It sounds as if it is an exacerbation of COPD with a bronchospastic component. She has seen Dr. Tyler in the remote past and I will ask that he see her and review. I have discussed in detail the particulars of this case and I have examined the patient and reviewed the patient's chart both current and old. I was directly involved in the patient's evaluation and management and I completely agree with Neha Valdez RN regarding this patient's evaluation and treatment plan. CC: Ryan White MD - Home Medications and Allergies Home Medications: Home Medications Medication Instructions Recorded Confirmed Type Digoxin 125 mcg PO MOWEFR 11/01/14 02/12/17 History Ferrous Sulfate 325 mg PO TID 11/01/14 02/12/17 History Omeprazole [Prilosec] 40 mg PO DAILY 11/01/14 02/12/17 History Furosemide Tab [Lasix Tab] 20 mg PO BID 11/04/14 02/12/17 History Apixaban [Eliquis] 2.5 mg PO BID #60 tablet 05/12/15 02/12/17 Rx Cyanocobalamin Tab [Vitamin B12 1,000 mcg PO QOTHER DAY 08/26/15 02/12/17 History Tab] Albuterol Inhaler [Proventil 2 puff INH Q6H PRN 03/11/16 02/12/17 History Inhaler] Biotin 1 mg PO DAILY 03/11/16 02/12/17 History Potassium Chloride [Klor-Con M20] 20 meq PO BID 03/11/16 02/12/17 History Metoprolol Succinate 75 mg PO QAM 02/12/17 02/12/17 History predniSONE TAB [PredniSONE] 10 mg PO DAILY 02/12/17 02/12/17 History Allergies/Adverse Reactions: Allergies Allergy/AdvReac Type Severity Reaction Status Date / Time ciprofloxacin [From Cipro] Allergy Mild ITCHING Verified 02/12/17 09:45 gabapentin [From Neurontin] Allergy Mild ITCHING Verified 02/12/17 09:45 hydrocodone Allergy ITCHING Verified 02/12/17 09:45 [From Lorcet 10650] tape Allergy BLISTER Uncoded 02/12/17 09:45 - Constitutional Constitutional: Present: as per HPI - EENT Eyes: Absent: blurry vision, requires corrective lense Ears: Absent: decreased hearing, tinnitus Nose, mouth and throat: Absent: dysphagia, epistaxis, headache(s), neck pain - Cardiovascular Cardiovascular: Present: dyspnea on exertion, edema. Absent: chest pain at rest , chest pain with activity, diaphoresis, dyspnea, radiating jaw, neck or arm pain, lightheadedness, orthopnea, palpitations - Respiratory Respiratory: Present: cough, dyspnea on exertion. Absent: dyspnea, hemoptysis, wheezing - Gastrointestinal Gastrointestinal: Present: nausea. Absent: abdominal pain, constipation, diarrhea, hematemesis, hematochezia, melena, vomiting - Genitourinary Genitourinary: Absent: dysuria, hematuria - Musculoskeletal Musculoskeletal: Present: back pain, limited range of motion, muscle weakness - Neurological Neurological: Present: abnormal gait. Absent: confusion, dizziness, frequent falls, headache(s), syncope - Psychiatric Psychiatric: Absent: anxiety, confusion - Endocrine Endocrine: Present: fatigue - Hematologic/Lymphatic Hematologic/Lymphatic: Present: easy bleeding, easy bruising Medical,Surgical,& Family Hx - Medical History Cardio: History of: Cardiac Dysrhythmia (A-FIB, SVT), Hypertension, Pacemaker ( Single-chamber), Cardiovascular Problems (psvt. Patient had ablation done at [facility] twice; atrial fibrillation) Psychological: History of: Anxiety Disorders Neurology: History of: Cerebrovascular Accident Rheumatology: History of;: Rheumatological Problems (temporal arteritis) Genitourinary: History of: Recurring Urinary Tract Infections Gastrointestinal: History of: GERD, Polyps (IN PAST) Musculoskeletal: History of: Musculoskeletal Problems Hematology: History of: Anemia, Bleeding Problems (reports history of blood transfusion 1950 with no reactions) - Surgical History Cardiac Surgeries: Sugical HX of: Cardiac Catheterization (In the ) Abdominal Surgeries: Surgical HX of: Appendectomy, Cholecystectomy, Colonoscopy , EGD Reproductive Surgeries: Surgical HX of;: Genitourinary Surgery (bladder suspension), Hysterectomy, Tubal Ligation Orthopedic Surgeries: Surgical HX of;: Total Knee Replacement (total right. l. knee arthorscopy) - Family History Family History: Reports;: Family Cancer (father (LUNG)), Family Hypertension ( Father, mother) - Social History Smoking Status: Never smoker Have you smoked in the last 12 months: No Frequency of Alcohol Use: None Type of Drug Use: None Lives With:: Alone Functional capacity: uses cane/walker Physical Examination Vital Signs Temp Pulse Resp BP Pulse Ox 97.9 F 88 16 140/70 97 02/12/17 09:40 02/12/17 09:40 02/12/17 09:40 02/12/17 09:40 02/12/17 09:40 General: Present: Appears Well, No Apparent Distress, Other (Noticeable discomfort in her back pain) HEENT: Present: PERRL, Mucus Membranes Moist Neck: Present: Supple Neck, Midline Trachea, No Bruit Cardiac: Present: Irregularly Regular, No Murmur Lungs: Present: Wheezes, Oxygen (Via nasal cannula), No Rales, No Rhonchi Neuro: Absent: Resting Tremor, Essential Tremor Abdomen: Present: Soft, Active Bowel Sounds, Non-Tender. Absent: Distended Skin: Absent: Rash, Suspicious Lesions Musculoskeletal: Present: Decreased Range of Motion, Pain in Joint Gait: Present: Poor Gait Extremities: Present: Normal Upper Extr. Pulses, Normal Lower Extr. Pulses, Edema (Trace to bilateral lower extremities). Absent: Normal Gait Result/EKG - Labs CBC & BMP: 02/14/17 08:56 02/14/17 08:56 Lab Results: I have reviewed the past 24 hour labs Labs: Laboratory Results - last 24 hr 02/13/17 02/13/17 02/14/17 12:37 12:37 08:56 WBC 5.1 9.6 D RBC 2.72 L 2.83 L Hgb 9.4 L 9.9 L Hct 28.7 L 29.1 L MCV 105.5 H 102.8 H MCH 35 H 35 H MCHC 32.8 34.0 RDW 22.2 H 20.9 H Plt Count 336 388 MPV 12.1 H 12.4 H Neut % (Auto) 58.7 89.5 H Lymph % (Auto) 23.7 5.6 L Maverick % (Auto) 8.7 3.4 Eos % (Auto) 6.7 0.2 Baso % (Auto) 1.2 H 0.2 Neut # (Auto) 3.0 8.6 H Lymph # (Auto) 1.2 L 0.5 L Maverick # (Auto) 0.4 0.3 Eos # (Auto) 0.3 0.0 Baso # (Auto) 0.1 0.0 Total Counted 100 Immature Gran % 1.0 1.1 Nucleated RBC % 0.0 0.0 Immature Gran # 0.05 0.11 Segmented Neutrophils 61 Lymphocytes 25 Monocytes 6 Eosinophils 7 Basophils 1.0 H Nucleated RBCs # 0.00 0.00 Platelet Estimate Adequate Immature Plt Fraction 0.0 0.0 Hypochromasia Slight Anisocytosis 1+ Macrocytosis 1+ Elliptocytes Few Schistocytes Few Peripheral Blood Smear Not Reportable Peripher Smr Path Cons Absolute Retic 0.1 Percent Retic 2.3 H Retic Hgb Equivalent 36.2 Haptoglobin Sodium Potassium Chloride Carbon Dioxide Anion Gap BUN Creatinine GFR Calculation BUN/Creatinine Ratio Glucose Calculated Osmolality Calcium Iron 67 TIBC 236 L % Saturation 28.4 Total Bilirubin AST ALT Alkaline Phosphatase Lactate Dehydrogenase 196 Total Protein Albumin Globulin Albumin/Globulin Ratio IgG IgA IgM ROXANA (IgG-AHG) ROXANA, Polyspecific 02/14/17 02/14/17 02/14/17 08:56 08:56 08:56 WBC RBC Hgb Hct MCV MCH MCHC RDW Plt Count MPV Neut % (Auto) Lymph % (Auto) Maverick % (Auto) Eos % (Auto) Baso % (Auto) Neut # (Auto) Lymph # (Auto) Maverick # (Auto) Eos # (Auto) Baso # (Auto) Total Counted Immature Gran % Nucleated RBC % Immature Gran # Segmented Neutrophils Lymphocytes Monocytes Eosinophils Basophils Nucleated RBCs # Platelet Estimate Immature Plt Fraction Hypochromasia Anisocytosis Macrocytosis Elliptocytes Schistocytes Peripheral Blood Smear Peripher Smr Path Cons Absolute Retic Percent Retic Retic Hgb Equivalent Haptoglobin 287.0 H Sodium 133 L Potassium 5.3 H Chloride 98 Carbon Dioxide 28 Anion Gap 12.3 BUN 17 Creatinine 1.00 GFR Calculation 54 BUN/Creatinine Ratio 17.00 Glucose 155 H Calculated Osmolality 270.4 L Calcium 8.7 Iron TIBC % Saturation Total Bilirubin 0.50 AST 27 ALT 32 Alkaline Phosphatase 74 Lactate Dehydrogenase Total Protein 7.1 7.2 Albumin 3.4 Globulin 3.7 H Albumin/Globulin Ratio 0.9 L IgG 1060 IgA 197 IgM 133 ROXANA (IgG-AHG) ROXANA, Polyspecific 02/14/17 02/14/17 08:56 08:56 WBC RBC Hgb Hct MCV MCH MCHC RDW Plt Count MPV Neut % (Auto) Lymph % (Auto) Maverick % (Auto) Eos % (Auto) Baso % (Auto) Neut # (Auto) Lymph # (Auto) Maverick # (Auto) Eos # (Auto) Baso # (Auto) Total Counted Immature Gran % Nucleated RBC % Immature Gran # Segmented Neutrophils Lymphocytes Monocytes Eosinophils Basophils Nucleated RBCs # Platelet Estimate Immature Plt Fraction Hypochromasia Anisocytosis Macrocytosis Elliptocytes Schistocytes Peripheral Blood Smear Peripher Smr Path Cons Absolute Retic Percent Retic Retic Hgb Equivalent Haptoglobin Sodium Potassium Chloride Carbon Dioxide Anion Gap BUN Creatinine GFR Calculation BUN/Creatinine Ratio Glucose Calculated Osmolality Calcium Iron TIBC % Saturation Total Bilirubin AST ALT Alkaline Phosphatase Lactate Dehydrogenase 251 H Total Protein Albumin Globulin Albumin/Globulin Ratio IgG IgA IgM ROXANA (IgG-AHG) Negative ROXANA, Polyspecific Negative - EKG EKG results: interpreted by me EKG shows: atrial fibrillation Quality Measures - VTE Contraindication to Pharmacological VTE Prophylaxis: High Risk of Bleeding Yousif Palomares Wesley, MD, personally performed the services described in this documentation, ascribed by Neha Valdez RN in my presence, and it is both accurate and complete 552 .
--- NOTE | 2017-02-14 17:18 | Pain Management Progress Note ---
Assessment and Plan (1) Compression fracture of thoracic vertebra Problem details: T6 fracture with new onset pain Status: Acute Assessment and plan: 02/14/2017. The patient continues to have severe interscapular pain. X-ray demonstrates a T6 fracture that was not there on the previous x-ray. Bone scan did not show any significant uptake at T6 however it is not uncommon in someone who has significant osteoporosis with an acute fracture. It may simply take time to show up. With the bone scan did show was no other fractures which is encouraging. Her pain is consistent with the area of fracture and the type of pain is consistent with a vertebral fracture. Given the severity of her symptoms she is a candidate for a kyphoplasty. My concern at this point is that she has been fairly short of breath today and her chest x-ray demonstrates signs of possible CHF. I will tentatively schedule her for kyphoplasty tomorrow, however this may be moved to another day depending on her breathing and input from her specialists and Dr. White. If her pulmonary status is improved in the morning I will be glad to proceed with the kyphoplasty around noon tomorrow. y 02/13/2017. The patient is very pleasant 81-year-old female who is doing well in regards to pain until 2 days ago when she in the evening developed severe interscapular pain. The pain is worse with any movement. The pain is so bad that she can only out of bed with assistance. X-ray demonstrates a T6 wedge fracture approximately 30%. She has a pacemaker and at this time cannot have a MRI. She reports a remote history of vertebral fractures 30 years ago. This fracture was not present in February 2016 on x-ray. Will get a bone scan to confirm this level fracture and help rule out at the levels of fracture. She is a candidate for kyphoplasty given the severity of her pain new onset of her fracture in conjunction with the pain. Will consider proceeding with kyphoplasty on Tuesday of this coming week if she has been off the Eliquis for adequate period of time. Please note the patient came in anemic and required transfusion. She reports severe malaise and fatigue for the past 2 months that is progressively gotten worse. Y Current Visit: Yes Qualifiers: Encounter type: initial encounter Fracture type: closed Qualified Code(s) : S22.000A - Wedge compression fracture of unspecified thoracic vertebra, initial encounter for closed fracture Pain - Subjective Interval history: Severe upper back pain interscapular worse with any movement Exam - Constitutional Vitals: Period Temp Pulse Resp BP Sys/Michael Pulse Ox Last 24 Hr 96.6 F-100.1 F 67-98 16-23 141-164/61-88 91-96 General appearance: normal weight, mild distress - Respiratory Respiratory exam: Present: wheezes - Back Exam Back exam: Present: vertebral tenderness Results - Labs CBC & BMP: 02/14/17 08:56 02/14/17 08:56 Quality Measures - VTE Contraindication to Pharmacological VTE Prophylaxis: High Risk of Bleeding
--- NOTE | 2017-02-14 18:15 | Nuclear Medicine Report ---
History: Thoracic compression fracture Date: 02/14/2017 Study: Nuclear medicine bone scan whole body Comparison exam: December 04, 2008 bone scan. February 12, 2017 thoracic spine x-ray Following the IV administration of 30 mCi technetium 99m MDP, delayed anterior and posterior images were obtained over the skeleton. The thoracic spine x-ray from February 12, 2017 is available for correlation. There is no abnormal increased uptake within the T6 vertebral body to suggest that this is a healing recent fracture. The T6 vertebral body is presumably, therefore, chronic. There is increased uptake associated with the anterior aspect of the right eighth rib compatible with healing fracture. There is mild increased uptake associated with the left knee and bilateral shoulders compatible with degenerative arthritis. There is photopenia associated with the right knee, related to knee prosthesis. There is a photopenic area over the left upper chest corresponding to pacemaker device. There is bilateral renal uptake without hydronephrosis. Impression: No evidence to suggest recent healing thoracic level compression fracture Scattered degenerative arthritis PROCEDURE INTERPRETED AT [facility] DEPARTMENT OF RADIOLOGY Final Report Signed by: Dr. Rubina Goodson
--- NOTE | 2017-02-14 18:47 | Pulmonology Consult Note ---
Assessment and Plan (1) Wedge compression fracture of T6 vertebra Status: Acute Assessment and plan: Needs to have kyphoplasty. We will try to tune her up for that. Probably diuresis will do it. Current Visit: Yes (2) Tracheomalacia, acquired Status: Acute Assessment and plan: She does have an enlarged trachea on CT done last year. Current Visit: Yes (3) Broncho-stenosis right lower lobe Status: Acute Assessment and plan: This is been treated with laser at [facility]. That was done recently. Current Visit: Yes (4) History of temporal arteritis Status: Chronic Assessment and plan: Long-term prednisone. This might aggravate osteoporosis. Current Visit: No (5) History of anemia Status: Acute Assessment and plan: Hematology is seen. She has a high MCV. Current Visit: No (6) Diastolic congestive heart failure Status: Chronic Assessment and plan: Chest x-ray certainly looks wet. I will order a BNP. Agree with stopping IV fluids and diuresing. Current Visit: No Qualifiers: Congestive heart failure chronicity: chronic Qualified Code(s): I50.32 - Chronic diastolic (congestive) heart failure History of Present Illness Chief complaint: Shortness of breath, back pain History of present illness: Ms. Mclaughlin is a 81 year old female who has temporal arteritis and is chronically on low-dose prednisone. She apparently woke up with severe pain in her back and was found to have a compression fracture of T6. She had a recent evaluation in [place] for a narrowed segment of her right lower lobe bronchus. Apparently she had laser treatment later. She was to go back for follow-up. She also has a large trachea likely some tracheomalacia. I had evaluated her about a year ago for the same problems and had recommended she see thoracic surgery. Apparently she has had dyspnea with by the interventional lidar analyst at [facility] which of course would be fine. At this point she has come in with severe back pain. She had a urinary tract infection and was felt to be dehydrated given IV fluids. Today she is more short of breath. She normally takes Lasix and has gotten back on that today. I was asked to see her because she is wheezing. She has never been a smoker and does not have COPD. She is on antibiotics for urinary tract infection. Home Medications Medication Instructions Recorded Confirmed Type Digoxin 125 mcg PO MOWEFR 11/01/14 02/12/17 History Ferrous Sulfate 325 mg PO TID 11/01/14 02/12/17 History Omeprazole [Prilosec] 40 mg PO DAILY 11/01/14 02/12/17 History Furosemide Tab [Lasix Tab] 20 mg PO BID 11/04/14 02/12/17 History Apixaban [Eliquis] 2.5 mg PO BID #60 tablet 05/12/15 02/12/17 Rx Cyanocobalamin Tab [Vitamin B12 1,000 mcg PO QOTHER DAY 08/26/15 02/12/17 History Tab] Albuterol Inhaler [Proventil 2 puff INH Q6H PRN 03/11/16 02/12/17 History Inhaler] Biotin 1 mg PO DAILY 03/11/16 02/12/17 History Potassium Chloride [Klor-Con M20] 20 meq PO BID 03/11/16 02/12/17 History Metoprolol Succinate 75 mg PO QAM 02/12/17 02/12/17 History predniSONE TAB [PredniSONE] 10 mg PO DAILY 02/12/17 02/12/17 History Allergies Allergy/AdvReac Type Severity Reaction Status Date / Time ciprofloxacin [From Cipro] Allergy Mild ITCHING Verified 02/12/17 09:45 gabapentin [From Neurontin] Allergy Mild ITCHING Verified 02/12/17 09:45 hydrocodone Allergy ITCHING Verified 02/12/17 09:45 [From Lorcet ] tape Allergy BLISTER Uncoded 02/12/17 09:45 12 point system: reviewed and no additional remarkable complaints except as stated - Cardiovascular Cardiovascular: Present: dyspnea, dyspnea on exertion, edema - Respiratory Respiratory: Present: dyspnea, dyspnea on exertion, wheezing - Musculoskeletal Musculoskeletal: Present: back pain Exam (Pulmonay) H&P - Constitutional Vitals: Period Temp Pulse Resp BP Sys/Michael Pulse Ox Last 24 Hr 96.6 F-100.1 F 67-98 16-23 141-164/61-88 91-96 Exam: She is alert and oriented vital signs normal. HEENT: Pupils react to light. Throat is clear. Neck supple no bruits. Chest hear wheezing in the upper chest bilaterally. Heart normal rate and rhythm no murmurs. Abdomen soft nontender no masses. Extremities no clubbing cyanosis 1+ edema. Calves nontender. Medical,Surgical,& Family Hx - Medical History Cardio: History of: Cardiac Dysrhythmia (A-FIB, SVT), Hypertension, Pacemaker ( Single-chamber), Cardiovascular Problems (psvt. Patient had ablation done at [facility] twice; atrial fibrillation) Psychological: History of: Anxiety Disorders Neurology: History of: Cerebrovascular Accident No history of: Seizures, Vertigo HEENT: History of: HEENT Problems (CHAD cataract removal) Endocrine: No history of: Dyslipidemia Rheumatology: History of;: Rheumatological Problems (temporal arteritis) Respiratory: No history of: Respiratory Problems Genitourinary: History of: Recurring Urinary Tract Infections No history of: Kidney Stones Gastrointestinal: History of: GERD, Polyps (IN PAST) Musculoskeletal: History of: Musculoskeletal Problems Hematology: History of: Anemia, Bleeding Problems (reports history of blood transfusion 1950 with no reactions) Other: No history of: Anesthesia Reactions, Malignant Hyperthermia - Surgical History Cardiac Surgeries: Sugical HX of: Cardiac Catheterization (In the ) Patient Denies: Carotid Endarterectomy Thoracic Surgeries: Patient denies;: Kidney (Renal Surgery), Organ Transplant Neurologic Surgeries: Patient denies: Neurologic Surgery HEENT Surgeries: Patient denies: Carotid Endarterectomy, Eye Surgery, Tonsilectomy & Adenoidectomy Abdominal Surgeries: Surgical HX of: Appendectomy, Cholecystectomy, Colonoscopy , EGD Reproductive Surgeries: Surgical HX of;: Genitourinary Surgery (bladder suspension), Hysterectomy, Tubal Ligation Orthopedic Surgeries: Surgical HX of;: Total Knee Replacement (total right. l. knee arthorscopy) - Family History Family History: Reports;: Family Cancer (father (LUNG)), Family Hypertension ( Father, mother) - Social History Smoking Status: Never smoker Frequency of Alcohol Use: None Type of Drug Use: None Results - Labs CBC & BMP: 02/14/17 08:56 02/14/17 08:56 Lab Results: I have reviewed the past 24 hour labs - Diagnostic Findings Procedure: Chest x-ray: image reviewed by me (Cardiomegaly slightly increased interstitial markings.) Quality Measures - VTE Contraindication to Pharmacological VTE Prophylaxis: High Risk of Bleeding
[2017-02-14] MEDS: LIDOCAINE 5% PATCH TRANSDERM SCH ×2 (21:15→22:38)
[2017-02-14] MEDS ORDERED: FUROSEMIDE 20 MG/2 ML VIAL IV ONE (21:45)
[2017-02-15 05:55] LABS: Immunoglobulin A (Chem) 197 MG/DL (70-400); Immunoglobulin G (Chem) 1060 MG/DL (700-1600); Immunoglobulin M (Chem) 133 MG/DL (40-230); Total Protein (Chem) 7.2 G/DL (6.4-8.3)
[2017-02-15] MEDS: KETOROLAC 15 MG/1 ML VIAL IV PRN (06:13)
[2017-02-15 06:22] LABS: Basophils % 0.2 % (0.0-0.8); Eosinophils % 0.1 % (0.00-10.9); Hematocrit 26.8 VOL% (35.7-47.0); Hemoglobin 8.8 GM/DL (12.0-16.0); Immature Granulocytes % 1.2 %; Lymphocytes # 0.6 10*3/uL (1.4-4.0); Lymphocytes % 6.8 % (21.3-54.2); Mean Corpuscular HGB Conc 32.8 GM/DL (32-36); Mean Corpuscular Hemoglobin 35 PG (27-34); Mean Corpuscular Volume 105.5 FL (87-102); Mean Platelet Volume 12.5 FL (9.6-12.0); Monocytes # 0.4 10*3/uL (0.11-0.8); Neutrophils # 7.4 10*3/uL (1.4-7.4); Neutrophils % 86.7 % (38.7-73.9); Platelet Count 393 T/CUMM (130-400); Red Blood Count 2.54 MC/CUMM (3.8-5.5); Red Cell Distribution Width 21.2 % (9.3-17.3); White Blood Count 8.5 T/CUMM (4-12)
[2017-02-15 07:03] LABS: Calcium 8.6 MG/DL (8.5-10.1); Magnesium 3.1 MG/DL (1.8-2.4); Osmolality,Calculated 273.2 MOS/KG (273-304); Potassium 5.6 MMOL/L (3.5-5.1)
[2017-02-15] MEDS ORDERED: FUROSEMIDE 40 MG/4 ML VIAL IV ONE (07:10)
--- NOTE | 2017-02-15 07:38 | Oncology Progress Note ---
Oncology Subjective PN Interval history: Workup for macrocytic anemia is in progress. Tests that have come back since yesterday include: All the patient's quantitative immunoglobulins are normal. Serum free light chain assay and serum immunoelectrophoresis and protein electrophoresis are pending. The hemoglobin is 8.8. The platelet count is 393,000. The absolute reticulocyte count is 0.1. The antibody screen on the patient's red cells is negative for any antibodies. The haptoglobin level is 287 which is high and suggests inflammation and not brisk hemolysis. Exam - Constitutional Vitals: Period Temp Pulse Resp BP Sys/Michael Pulse Ox Last 24 Hr 96.6 F-97.3 F 88-108 16-23 140-183/66-88 93-98 Results - Labs CBC & BMP: 02/15/17 05:44 02/15/17 05:44 Quality Measures - VTE Contraindication to Pharmacological VTE Prophylaxis: High Risk of Bleeding
[2017-02-15] MEDS ORDERED: FUROSEMIDE 20 MG TABLET PO SCH (08:00)
[2017-02-15] MEDS ORDERED: ALBUTEROL/IPRATROPIUM 3 ML NEB RESP TX PRN (08:09)
--- NOTE | 2017-02-15 08:20 | XRay Report ---
Portable chest Exam date: 02/15/2017 4:00 AM Indication: Shortness of breath, cough Comparison: Previous day at 1054 hours Findings: Cardiomediastinal contours are stable with no change in single-lead pacemaker placement. Increasing interstitial and hazy alveolar opacities superimposed on chronic fibrosis. Small bilateral pleural effusions are unchanged. No acute osseous abnormalities. Visualized upper abdomen demonstrates no acute pathology. Impression: Slight worsening of the pulmonary edema pattern with no change in the small bilateral pleural effusions PROCEDURE INTERPRETED AT [facility] DEPARTMENT OF RADIOLOGY Final Report Signed by: Ruben Loza
--- NOTE | 2017-02-15 08:24 | Pulmonology Progress Note ---
Pulmonary - PN: Subj Interval history: Patient feels better today after diuresis. Chest x-ray still showing small effusions and perhaps a right basilar infiltrate. He is n.p.o. and ready for the kyphoplasty today. She has focal stenosis involving a right lower lobe segmental bronchus. This is been treated with laser at [facility] recently. She is not bruising today. Should tolerate the procedure. Does need more diuretics. She is on empiric antibiotics. Exam (Progress Note) - Constitutional Vitals: Period Temp Pulse Resp BP Sys/Michael Pulse Ox Last 24 Hr 96.9 F-97.3 F 88-108 16-23 140-183/66-87 93-98 Exam: Patient is alert seems oriented. Vital signs normal. No fever. Pupils react to light. Throat is clear. Neck is supple. Chest reveals some minimal basilar crackles no wheezes. Heart normal rate rhythm no murmurs. Abdomen soft nontender no masses. Extremities no clubbing cyanosis or edema. Calves nontender. Results - Labs CBC & BMP: 02/15/17 05:44 02/15/17 05:44 Lab Results: I have reviewed the past 24 hour labs - Diagnostic Findings Procedure: Chest x-ray: image reviewed by me (Small pleural effusions.) Assessment and Plan (1) Wedge compression fracture of T6 vertebra Status: Acute Assessment and plan: Needs to have kyphoplasty. We will try to tune her up for that. Probably diuresis will do it. 02/15/2017 for kyphoplasty today. Current Visit: Yes (2) Tracheomalacia, acquired Status: Acute Assessment and plan: She does have an enlarged trachea on CT done last year. Current Visit: Yes (3) Broncho-stenosis right lower lobe Status: Acute Assessment and plan: This is been treated with laser at [facility]. That was done recently. 02/15/2017 this has been treated with laser. Await report from [facility] on the details. This was done by Dr. Joshua. Current Visit: Yes (4) History of temporal arteritis Status: Chronic Assessment and plan: Long-term prednisone. This might aggravate osteoporosis. 02/15/2017 on long-term prednisone. Current Visit: No (5) History of anemia Status: Acute Assessment and plan: Hematology is seen. She has a high MCV. 02/15/[address] Blackwell. Current Visit: No (6) Diastolic congestive heart failure Status: Chronic Assessment and plan: Chest x-ray certainly looks wet. I will order a BNP. Agree with stopping IV fluids and diuresing. 02/15/2017 clinically improved. X-ray is lagging a bit. Current Visit: No Qualifiers: Congestive heart failure chronicity: chronic Qualified Code(s): I50.32 - Chronic diastolic (congestive) heart failure
--- NOTE | 2017-02-15 08:24 | EKG Report ---
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
[2017-02-15] MEDS: cefTRIAXone 1,000 MG in SODIUM CHLORIDE 0.9% 100 ML IV SCH (08:30)
--- NOTE | 2017-02-15 09:27 | Internal Med Progress Note ---
Assessment and Plan (1) Acute lower GI bleeding Status: Acute Assessment and plan: 81-year-old female admitted to acute * Symptomatic anemia with possible lower GI bleeding. Workup has been negative so far. * Chronic A. fib. Controlled ventricular rate * Temporal arteritis. Her steroids are being tapered * Mild fluid overload. Patient will be given Lasix 40 mg IV push twice daily * Hypertension. Blood pressure is stable * Discussed with patient and her son Current Visit: Yes (2) Compression fracture of thoracic vertebra Problem details: T6 fracture with new onset pain Status: Acute Current Visit : Yes Qualifiers: Encounter type: initial encounter Fracture type: closed Qualified Code(s) : S22.000A - Wedge compression fracture of unspecified thoracic vertebra, initial encounter for closed fracture (3) Generalized weakness Status: Acute Current Visit: Yes (4) Anemia Status: Acute Current Visit: Yes (5) History of anticoagulant therapy Problem details: Eliquis Status: Chronic Current Visit: Yes (6) History of stroke Status: Chronic Current Visit: No (7) Chronic atrial fibrillation Status: Chronic Current Visit: No (8) History of temporal arteritis Status: Chronic Current Visit: No Internal Medicine - PN: Subj Interval history: She was short of breath during the night but feels better this morning. She denies any chest pain. She denies any nausea or vomiting Exam (Progress Note) - Constitutional Vitals: Period Temp Pulse Resp BP Sys/Michael Pulse Ox Last 24 Hr 96.7 F-97.3 F 75-108 16-23 140-183/66-87 93-98 Exam: Examination: GENERAL: NAD. HEENT: PERRLA. EOMI. NECK: Neck is supple. No JVD. No carotid bruit. No thyromegaly. CVS: Regular rate and rhythm. S1 and S2 are normal. RESPIRATORY: Lungs are clear. Still has few basilar rales ABDOMEN: Soft and nontender. Bowel sounds are present. No hepatosplenomegaly. EXT: No edema. Peripheral pulses are present. 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 MSK: No obvious deformity. Results - Labs CBC & BMP: 02/15/17 05:44 02/15/17 05:44 Lab Results: I have reviewed the past 24 hour labs Quality Measures - VTE Contraindication to Pharmacological VTE Prophylaxis: High Risk of Bleeding
[2017-02-15 09:40] LABS: Albumin (SPE) 4.1 G/DL (3.2-5.3)
[2017-02-15 09:41] LABS: Albumin (SPE) Rel % 57.3 %; Alpha 1 (SPE) 0.3 G/DL (0.1-0.4); Alpha 1 (SPE) Rel % 4.1 %; Alpha 2 (SPE) 0.9 G/DL (0.4-1.0); Alpha 2 (SPE) Rel % 12.5 %; Beta (SPE) 0.8 G/DL (0.5-1.1); Beta (SPE) Rel % 10.8 %; Gamma (SPE) 1.1 G/DL (0.7-1.7); Gamma (SPE) Rel % 15.3 %
[2017-02-15] MEDS ORDERED: ROPIVACAINE 0.5% 30 ML VIAL ONE (10:57)
[2017-02-15] MEDS ORDERED: TISSUE ADHESIVE 1 EACH APPLICATOR TOP ONE (10:57)
[2017-02-15] MEDS ORDERED: PROPOFOL 200 MG/20 ML VIAL IV ONE (11:50)
[2017-02-15] MEDS ORDERED: METOPROLOL TARTRATE 5 MG/5 ML VIAL IV ONE (11:50)
[2017-02-15] MEDS ORDERED: LIDOCAINE 2% 5 ML VIAL ONE (11:50)
[2017-02-15] MEDS ORDERED: ceFAZolin 1,000 MG VIAL ONE (12:15)
--- NOTE | 2017-02-15 12:47 | Operative Note ---
Date of procedure: 02/15/17 Pre-op diagnosis: Acute T6 osteoporotic compression fracture Post-op diagnosis: same Procedure: Preoperative diagnosis: #1 acute T6 osteoporotic compression fracture, #2 thoracic spondylosis. Postoperative diagnosis: Same. Procedure: Kyphoplasty T6. Anesthesia: MAC. Complications: None. Estimated blood loss: Minimal. Findings: The patient's bone was found to be extremely soft, there was excellent filling throughout the vertebral body of bone cement. History of present illness: Please see the hospital record. Also the patient has severe interscapular pain and a new fracture of T6. She is failed conservative measures and is unable to adequately mobilize or perform basic activities of daily living due to the pain. She is now candidate for kyphoplasty of T6. Will obtain biopsy to rule out other pathological causes of the pain. Procedure note: The risk benefits and indications of the procedure were explained to the patient, including option to do nothing all, she understood these and wished to proceed. The patient was placed in the prone position on the operating table, her back was prepped with alcohol ChloraPrep, allowed air dry and sterilely draped. Strict sterile technique was used throughout the procedure. Skin was raised above the pedicles of T6 bilaterally. Using careful fluoroscopic control 11-gauge bone trochars were advanced to the skin wheals after stab wounds were made with 11 blade scalpel and advanced until they struck the posterior aspect of the pedicles of T11 bilaterally using oblique approach. Using a bone mallet these bone trochars were carefully driven down through the pedicles into the posterior aspect of the T6 vertebral body. AP and lateral views were checked frequently under fluoroscopy. Once adequate needle tip position had been achieved I then obtain a biopsy of the T6 vertebral body. I then placed the bone handrails through the bone trochars into the vertebral body to make a pathway for the balloon bone tamps. The balloon bone tamps then were placed within the vertebral body and inflated to around 100-150 pounds per square inch each holding 1/2-2 cc of contrasted fluid. There is partial adventism of the vertebral body height loss of the superior endplate. Was doing this an assistant brand manager mixed the radiopaque methylmethacrylate. After this had been mixed and adequate set up time the balloon bone tamps were deflated and removed. The vertebral body then was filled with the radiopaque bone cement under continuous lateral fluoroscopy. I injected a total of 3 and half to 4 cc of the bone cement into the vertebral body with excellent filling throughout the vertebral body. The stylets then were placed back into the bone trochars and the bone trochars removed intact. Skin was good glue was used on the wounds and the wounds were sterilely dressed, the patient was taken to recovery area in satisfactory condition. Anesthesia: MAC Surgeon / Physician: Jeff Choe Estimated blood loss: minimal Specimens: other (T6 vertebral body biopsy) Condition: stable Disposition: PACU Results - Labs CBC & BMP: 02/15/17 05:44 02/15/17 11:30 Discharge Plan - Discharge Data Condition at Discharge: Stable Discharge Diet: advance to your usual diet Activity: ambulate only with your walker, as per physical therapy, increase activity as tolerated, no lifting Hygiene: may shower Weight Bearing at Discharge: weight bear as tolerated - Discharge Medications No Action Digoxin 125 mcg PO MOWEFR Ferrous Sulfate 325 mg PO TID Omeprazole [Prilosec] 40 mg PO DAILY Furosemide Tab [Lasix Tab] 20 mg PO BID Apixaban [Eliquis] 2.5 mg PO BID #60 tablet Cyanocobalamin Tab [Vitamin B12 Tab] 1,000 mcg PO QOTHER DAY Potassium Chloride [Klor-Con M20] 20 meq PO BID Biotin 1 mg PO DAILY Albuterol Inhaler [Proventil Inhaler] 2 puff INH Q6H PRN PRN Reason: Shortness Of Breath/Wheezing predniSONE TAB [PredniSONE] 10 mg PO DAILY Metoprolol Succinate 75 mg PO QAM - Follow Up or Referral - Forms/Instructions
--- NOTE | 2017-02-15 12:54 | Anesthesia Post-Op ---
Anesthesia Post OP - Post Ansesthetic Evaluation Patient seen in post op: Yes Resp: within normal limits CV: within normal limits Mental: within normal limits Temp: within normal limits [id number]: within normal limits Nausea and Vomiting: within normal limits Pain: within normal limits
[2017-02-15] MEDS ORDERED: fentaNYL 100 MCG/2 ML VIAL ONE (13:01)
[2017-02-15] MEDS ORDERED: SODIUM CHLORIDE 0.9% 100 ML IV ONE (13:01)
[2017-02-15] MEDS ORDERED: MIDAZOLAM 2 MG/2 ML VIAL ONE (13:01)
[2017-02-15] MEDS: methylPREDNISolone SOD SUC 40 MG/1 ML VIAL IV SCH ×2 (14:09→20:32)
[2017-02-15] MEDS: METOPROLOL SUCCINATE XL 50 MG TABLET PO SCH (14:10)
[2017-02-15] MEDS: PANTOPRAZOLE 40 MG TABLET PO SCH (14:10)
[2017-02-15] MEDS: ASPIRIN EC 81 MG TABLET PO SCH (14:11)
[2017-02-15] MEDS: DOCUSATE SODIUM 100 MG CAPSULE PO SCH ×2 (14:11→20:33)
[2017-02-15] MEDS: traMADol 50 MG TABLET PO SCH ×4 (14:12→20:33)
[2017-02-15] MEDS: METHOCARBAMOL 750 MG TABLET PO PRN ×2 (14:16→20:35)
--- NOTE | 2017-02-15 16:15 | Cardiology Progress Note ---
Courtney Palomares April, RN, am scribing for, and in the presence of, Joseph Dodd MD 16:14. Assessment and Plan (1) Hypertension Status: Chronic Assessment and plan: Her home meds have been restarted. Blood pressures have been somewhat elevated , will continue to monitor. Current Visit: Yes Qualifiers: Hypertension type: essential hypertension Qualified Code(s): I10 - Essential (primary) hypertension (2) Acute lower GI bleeding Status: Acute Assessment and plan: GI is following. Stools for occult blood are pending Current Visit: Yes (3) Pacemaker Status: Chronic Current Visit: Yes (4) Compression fracture of thoracic vertebra Problem details: T6 fracture with new onset pain Status: Acute Assessment and plan: She continues to have back pain. Dr. Choe has been consulted and will be following. She is scheduled for kyphoplasty today. Current Visit: Yes Qualifiers: Encounter type: initial encounter Fracture type: closed Qualified Code(s) : S22.000A - Wedge compression fracture of unspecified thoracic vertebra, initial encounter for closed fracture (5) Generalized weakness Status: Acute Current Visit: Yes (6) Anemia Status: Acute Assessment and plan: She was transfused 2 units of blood product and her H&H improved. Eliquis is currently being held. Hematology workup by Dr. Blackwell is ongoing. H&H today has dropped down a bit to 8.8 and 26.8. Current Visit: Yes (7) History of anticoagulant therapy Problem details: Eliquis Status: Chronic Assessment and plan: She takes Eliquis for history of edge fibrillation and stroke. Eliquis is currently on hold. Current Visit: Yes (8) History of stroke Status: Chronic Current Visit: No Cardiology - PN: Subj Interval history: System Software Developer: Dr. Dodd PCP: Dr. White Summary: Ms. Mclaughlin is a 81 year old female with a history of stroke, anemia, GERD , hypertension, chronic A. fib, and temporal arteritis. She had single chamber pacemaker placed November 04, 2014 for chronic atrial fibrillation with symptomatic severe bradycardia. Stress test in May 09, 2015 was felt to be a normal study and did not suggest presence of significant coronary ischemia. Echocardiogram done in Dr. Dodd's office September 16, 2016 with ejection fraction of 50%. She is chronically anticoagulated on Eliquis. She also has a history of SVT which was treated with ablation at [facility]. Other surgical history includes hysterectomy, right total knee, bilateral cataracts, cholecystectomy, and appendectomy. Family history includes father with lung cancer and hypertension and mother with hypertension. She reports she is a lifetime non- smoker. She presented to the emergency department at [facility] on February 12 with complaints of mid to upper back pain and was found to have a T6 compression fracture. Dr. Choe was consulted and has seen patient. She also reports experiencing dyspnea on exertion and weakness since the middle of December. Her blood pressure has been elevated somewhat, this morning is 154/88. Her Eliquis is being held. H&H on admission was 7.4 and 22.4, she was transfused 2 units of red blood cells. H&H this morning is 9.[address] Blackwell has been consulted and has seen patient. She says she takes iron and is unable to determine if she has had any blood in her stool, but she has not noticed any bright red blood. Urine culture with gram-positive cocci. She is on appropriate IV antibiotics. Initial visit February 14, 2017: She denies any chest pain or palpitations. She reports she began coughing and wheezing this morning and is coughing up phlegm. Chest x-ray has been ordered. This afternoon she has had progressive worsening dyspnea with wheezing. It sounds as if it is an exacerbation of COPD with a bronchospastic component. She has seen Dr. Tyler in the remote past and I will ask that he see her and review. February 15, 2017: Ms. Mclaughlin is seen resting in bed this morning. She continues to experience back discomfort and is scheduled for kyphoplasty today. She has been started on Lasix 40 mg IV twice daily. She is not as short of breath this morning and has less wheezing. Chest x-ray this morning showed slight worsening of the pulmonary edema. BNP this morning 532. We will get a troponin on her this morning and repeat it in 8 hours. EKG this morning showed atrial fibrillation with heart rate of 74. I have discussed in detail the particulars of this case and I have examined the patient and reviewed the patient's chart both current and old. I was directly involved in the patient's evaluation and management and I completely agree with Neha Valdez RN regarding this patient's evaluation and treatment plan. Exam (Progress Note) - Constitutional Vitals: Period Temp Pulse Resp BP Sys/Michael Pulse Ox Last 24 Hr 96.7 F-97.3 F 75-108 16-23 140-183/66-87 93-98 Exam: General: Present: Appears Well, No Apparent Distress, Other (Noticeable discomfort related to back pain) HEENT: Present: PERRL, Mucus Membranes Moist Neck: Present: Supple Neck, Midline Trachea, No Bruit Cardiac: Present: Irregularly Regular, No Murmur Lungs: Present: Wheezes, Oxygen (Via nasal cannula), No Rhonchi Neuro: Absent: Resting Tremor, Essential Tremor Abdomen: Present: Soft, Active Bowel Sounds, Non-Tender. Absent: Distended Skin: Absent: Rash, Suspicious Lesions Musculoskeletal: Present: Decreased Range of Motion, Pain in Joint Gait: Present: Poor Gait Extremities: Present: Normal Upper Extr. Pulses, Normal Lower Extr. Pulses, Edema (Trace to bilateral lower extremities). Absent: Normal Gait Result/EKG - Labs CBC & BMP: 02/15/17 05:44 02/15/17 11:30 Lab Results: I have reviewed the past 24 hour labs Labs: Laboratory Results - last 24 hr 02/13/17 02/14/17 02/14/17 12:37 08:56 08:56 WBC 9.6 D RBC 2.83 L Hgb 9.9 L Hct 29.1 L MCV 102.8 H MCH 35 H MCHC 34.0 RDW 20.9 H Plt Count 388 MPV 12.4 H Neut % (Auto) 89.5 H Lymph % (Auto) 5.6 L Larue % (Auto) 3.4 Eos % (Auto) 0.2 Baso % (Auto) 0.2 Neut # (Auto) 8.6 H Lymph # (Auto) 0.5 L Larue # (Auto) 0.3 Eos # (Auto) 0.0 Baso # (Auto) 0.0 Immature Gran % 1.1 Nucleated RBC % 0.0 Immature Gran # 0.11 Nucleated RBCs # 0.00 Immature Plt Fraction 0.0 Peripheral Blood Smear Not Reportable Peripher Smr Path Cons Haptoglobin Sodium 133 L Potassium 5.3 H Chloride 98 Carbon Dioxide 28 Anion Gap 12.3 BUN 17 Creatinine 1.00 GFR Calculation 54 BUN/Creatinine Ratio 17.00 Glucose 155 H Calculated Osmolality 270.4 L Calcium 8.7 Magnesium Total Bilirubin 0.50 AST 27 ALT 32 Alkaline Phosphatase 74 Lactate Dehydrogenase B-Natriuretic Peptide Total Protein 7.1 Albumin 3.4 Globulin 3.7 H Albumin/Globulin Ratio 0.9 L IgG IgG Total IgA IgA Total IgM IgM Total Serum Total Protein PEP ROXANA (IgG-AHG) ROXANA, Polyspecific 02/14/17 02/14/17 02/14/17 08:56 08:56 08:56 WBC RBC Hgb Hct MCV MCH MCHC RDW Plt Count MPV Neut % (Auto) Lymph % (Auto) Larue % (Auto) Eos % (Auto) Baso % (Auto) Neut # (Auto) Lymph # (Auto) Larue # (Auto) Eos # (Auto) Baso # (Auto) Immature Gran % Nucleated RBC % Immature Gran # Nucleated RBCs # Immature Plt Fraction Peripheral Blood Smear Peripher Smr Path Cons Haptoglobin 287.0 H Sodium Potassium Chloride Carbon Dioxide Anion Gap BUN Creatinine GFR Calculation BUN/Creatinine Ratio Glucose Calculated Osmolality Calcium Magnesium Total Bilirubin AST ALT Alkaline Phosphatase Lactate Dehydrogenase B-Natriuretic Peptide Total Protein 7.2 Albumin Globulin Albumin/Globulin Ratio IgG 1060 IgG Total 1060 IgA 197 IgA Total 197 IgM 133 IgM Total 133 Serum Total Protein PEP 7.2 ROXANA (IgG-AHG) ROXANA, Polyspecific 02/14/17 02/14/17 02/15/17 08:56 08:56 05:44 WBC 8.5 RBC 2.54 L Hgb 8.8 L Hct 26.8 L MCV 105.5 H MCH 35 H MCHC 32.8 RDW 21.2 H Plt Count 393 MPV 12.5 H Neut % (Auto) 86.7 H Lymph % (Auto) 6.8 L Larue % (Auto) 5.0 Eos % (Auto) 0.1 Baso % (Auto) 0.2 Neut # (Auto) 7.4 Lymph # (Auto) 0.6 L Larue # (Auto) 0.4 Eos # (Auto) 0.0 Baso # (Auto) 0.0 Immature Gran % 1.2 Nucleated RBC % 0.0 Immature Gran # 0.10 Nucleated RBCs # 0.00 Immature Plt Fraction 0.0 Peripheral Blood Smear Peripher Smr Path Cons Haptoglobin Sodium Potassium Chloride Carbon Dioxide Anion Gap BUN Creatinine GFR Calculation BUN/Creatinine Ratio Glucose Calculated Osmolality Calcium Magnesium Total Bilirubin AST ALT Alkaline Phosphatase Lactate Dehydrogenase 251 H B-Natriuretic Peptide Total Protein Albumin Globulin Albumin/Globulin Ratio IgG IgG Total IgA IgA Total IgM IgM Total Serum Total Protein PEP ROXANA (IgG-AHG) Negative ROXANA, Polyspecific Negative 02/15/17 02/15/17 05:44 05:44 WBC RBC Hgb Hct MCV MCH MCHC RDW Plt Count MPV Neut % (Auto) Lymph % (Auto) Larue % (Auto) Eos % (Auto) Baso % (Auto) Neut # (Auto) Lymph # (Auto) Larue # (Auto) Eos # (Auto) Baso # (Auto) Immature Gran % Nucleated RBC % Immature Gran # Nucleated RBCs # Immature Plt Fraction Peripheral Blood Smear Peripher Smr Path Cons Haptoglobin Sodium 134 L Potassium 5.6 H Chloride 96 L Carbon Dioxide 32 Anion Gap 11.6 BUN 22 H Creatinine 1.20 H GFR Calculation 43 BUN/Creatinine Ratio 18.00 Glucose 154 H Calculated Osmolality 273.2 Calcium 8.6 Magnesium 3.1 H Total Bilirubin AST ALT Alkaline Phosphatase Lactate Dehydrogenase B-Natriuretic Peptide 532 H Total Protein Albumin Globulin Albumin/Globulin Ratio IgG IgG Total IgA IgA Total IgM IgM Total Serum Total Protein PEP ROXANA (IgG-AHG) ROXANA, Polyspecific - Diagnostic Findings Procedure: Chest x-ray: report reviewed by me - EKG EKG results: interpreted by wv EKG shows: atrial fibrillation Quality Measures - VTE Contraindication to Pharmacological VTE Prophylaxis: High Risk of Bleeding Yousif Palomares Wesley, MD, personally performed the services described in this documentation, ascribed by Neha Valdez RN in my presence, and it is both accurate and complete 614 .
[2017-02-15] MEDS: FUROSEMIDE 40 MG/4 ML VIAL IV SCH (17:24)
[2017-02-15] MEDS: LIDOCAINE 5% PATCH TRANSDERM SCH (20:41)
--- NOTE | 2017-02-15 20:45 | Event Note ---
Patient was off the floor having her procedure done today during rounds. No bleeding is reported. Will check back tomorrow.
[2017-02-16 06:51] LABS: Basophils % 0.6 % (0.0-0.8); Eosinophils # 0.1 10*3/uL (0.0-0.87); Hematocrit 25.1 VOL% (35.7-47.0); Hemoglobin 8.4 GM/DL (12.0-16.0); Immature Granulocytes Absolute 0.05 #; Lymphocytes # 0.6 10*3/uL (1.4-4.0); Lymphocytes % 12.3 % (21.3-54.2); Mean Corpuscular HGB Conc 33.5 GM/DL (32-36); Mean Corpuscular Hemoglobin 35 PG (27-34); Mean Corpuscular Volume 104.1 FL (87-102); Mean Platelet Volume 12.6 FL (9.6-12.0); Monocytes # 0.3 10*3/uL (0.11-0.8); Monocytes % 5.4 % (1.7-12.7); Neutrophils # 4.2 10*3/uL (1.4-7.4); Neutrophils % 79.7 % (38.7-73.9); Platelet Count 360 T/CUMM (130-400); Red Blood Count 2.41 MC/CUMM (3.8-5.5); Red Cell Distribution Width 20.8 % (9.3-17.3); White Blood Count 5.2 T/CUMM (4-12)
[2017-02-16 07:14] LABS: Calcium 8.8 MG/DL (8.5-10.1); Osmolality,Calculated 276.1 MOS/KG (273-304)
--- NOTE | 2017-02-16 08:09 | Oncology Progress Note ---
Oncology Subjective PN Interval history: Evaluation of the anemia is almost complete and there is no obvious or unusual cause has been picked up by some of the more esoteric tests performed. She has not had a hemoglobin electrophoresis. Serum protein studies that have returned do not suggest a monoclonal spike. The serum free light chain assay is pending. I am not really inclined to suggest performing a bone marrow biopsy and aspirate on this patient since she is 81 years old and this is long-standing and. My recommendation would be to transfuse her as needed, especially since she tells me that she is only transfused very infrequently. I will sign off at this point except to check the few lab tests that are pending. Exam - Constitutional Vitals: Period Temp Pulse Resp BP Sys/Michael Pulse Ox Last 24 Hr 97.1 F-98.3 F 68-90 14-24 107-183/54-86 91-97 Results - Labs CBC & BMP: 02/16/17 06:04 02/16/17 06:03 Quality Measures - VTE Contraindication to Pharmacological VTE Prophylaxis: High Risk of Bleeding
--- NOTE | 2017-02-16 08:12 | XRay Report ---
Portable chest Exam date: 02/16/2017 4:00 AM Indication: Shortness of breath, cough Comparison: Previous day at 1222 hours Findings: Cardiomediastinal contours are stable with no change in pacemaker placement. Resolved pulmonary edema pattern with small bilateral pleural effusions . No interval augmentation of the approximate T5 vertebral body. Visualized upper abdomen demonstrates no acute pathology. Impression: Resolved pulmonary edema pattern with small residual pleural effusions PROCEDURE INTERPRETED AT [facility] DEPARTMENT OF RADIOLOGY Final Report Signed by: Ruben Loza
--- NOTE | 2017-02-16 08:23 | EKG Report ---
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
--- NOTE | 2017-02-16 08:50 | Pulmonology Progress Note ---
Pulmonary - PN: Subj Interval history: Patient feels better today after diuresis. Chest x-ray still showing small effusions and perhaps a right basilar infiltrate. He is n.p.o. and ready for the kyphoplasty today. She has focal stenosis involving a right lower lobe segmental bronchus. This is been treated with laser at [facility] recently. She is not bruising today. Should tolerate the procedure. Does need more diuretics. She is on empiric antibiotics. 02/16/2017 patient improved. Chest x-ray looks better. Minimal pleural effusions. Should be ready for swing bed. Needs more physical therapy. She has had some dark sputum and is on antibiotics. Could be discharged on oral antibiotics for about 5 more days. Exam (Progress Note) - Constitutional Vitals: Period Temp Pulse Resp BP Sys/Michael Pulse Ox Last 24 Hr 97.1 F-98.3 F 68-90 14-24 107-183/54-86 91-97 Exam: Patient is alert seems oriented. Vital signs normal. No fever. Pupils react to light. Throat is clear. Neck is supple. Chest sounds clear, no rales, no wheezes. Heart normal rate rhythm no murmurs. Abdomen soft nontender no masses. Extremities no clubbing cyanosis or edema. Calves nontender. Results - Labs CBC & BMP: 02/16/17 06:04 02/16/17 06:03 Lab Results: I have reviewed the past 24 hour labs - Diagnostic Findings Procedure: Chest x-ray: image reviewed by me (Tiny pleural effusions. Lungs clear. Pacemaker in place.) Assessment and Plan (1) Wedge compression fracture of T6 vertebra Status: Acute Assessment and plan: Needs to have kyphoplasty. We will try to tune her up for that. Probably diuresis will do it. 02/15/2017 for kyphoplasty today. 02/16/2017 patient had kyphoplasty yesterday and has been up walking. Current Visit: Yes (2) Tracheomalacia, acquired Status: Acute Assessment and plan: She does have an enlarged trachea on CT done last year. Current Visit: Yes (3) Broncho-stenosis right lower lobe Status: Acute Assessment and plan: This is been treated with laser at [facility]. That was done recently. 02/15/2017 this has been treated with laser. Await report from [facility] on the details. This was done by Dr. Joshua. 02/16/2017 patient relates that she has had this treated with a laser at [facility]. We still are waiting on records from that. Chest x-ray today shows clearing of the right lower lobe so I do not think that is really in play now. Current Visit: Yes (4) History of temporal arteritis Status: Chronic Assessment and plan: Long-term prednisone. This might aggravate osteoporosis. 02/15/2017 on long-term prednisone. 02/16/2017 on long-term prednisone. Dr. White follows that. Current Visit: No (5) History of anemia Status: Acute Assessment and plan: Hematology is seen. She has a high MCV. 02/15/[address] Blackwell. Current Visit: No (6) Diastolic congestive heart failure Status: Chronic Assessment and plan: Chest x-ray certainly looks wet. I will order a BNP. Agree with stopping IV fluids and diuresing. 02/15/2017 clinically improved. X-ray is lagging a bit. 02/16/2017 chest x-ray improved. Congestive heart failure resolving. Current Visit: No Qualifiers: Congestive heart failure chronicity: chronic Qualified Code(s): I50.32 - Chronic diastolic (congestive) heart failure
--- NOTE | 2017-02-16 08:58 | Discharge Summary ---
Hospital Course - Hospital Course Hospital Course: Patient is 81-year-old female with history of multiple medical problems including chronic A. fib, history of CVA, status post pacemaker placement, history of cardiac ablation, history of previous transfusion, history of GI bleeding who was admitted through the emergency room with anemia and severe back pain. Patient was transfused and was seen in consultation by oncology, GI , cardiology and pulmonary medicine. She underwent kyphoplasty by Dr. Choe. She is doing better but is still quite weak. She will be transferred to swing bed unit to undergo therapy before going home. I had a long discussion with patient and her son about anticoagulation. She has had history of GI bleeding but also had a CVA and has decided to continue with anticoagulation. Will watch her hematocrit and follow. Patient did develop CHF and was given Lasix. She has improved. Will continue her on the Lasix for now Diagnosis - Discharge Diagnosis (1) Acute lower GI bleeding Status: Acute (2) Compression fracture of thoracic vertebra Status: Acute (3) Generalized weakness Status: Acute (4) Anemia Status: Acute (5) History of anticoagulant therapy Status: Chronic (6) History of stroke Status: Chronic (7) Chronic atrial fibrillation Status: Chronic (8) History of temporal arteritis Status: Chronic Discharge Plan - Discharge Data Disposition: Disch/Xfer to [facility] Condition at Discharge: Stable Discharge Diet: advance to your usual diet Activity: as per physical therapy - Discharge Medications New Cefuroxime Tab [Ceftin] 500 mg PO BID #10 tablet Lidocaine 5% Patch [Lidoderm 5% Patch] 3 patch TRANSDERM Q24H patch Methocarbamol Tab [Robaxin Tab] 750 mg PO Q6H PRN tablet PRN Reason: Muscle Spasm predniSONE TAB [PredniSONE] 20 mg PO DAILY tablet Furosemide Tab [Lasix Tab] 40 mg PO BID DIURETIC tablet traMADol TAB [Ultram] 50 mg PO QID PRN #1 tablet PRN Reason: Pain Mild To Moderate (1-7) Continue Digoxin 125 mcg PO MOWEFR Ferrous Sulfate 325 mg PO TID Omeprazole [Prilosec] 40 mg PO DAILY Apixaban [Eliquis] 2.5 mg PO BID #60 tablet Cyanocobalamin Tab [Vitamin B12 Tab] 1,000 mcg PO QOTHER DAY Biotin 1 mg PO DAILY Albuterol Inhaler [Proventil Inhaler] 2 puff INH Q6H PRN PRN Reason: Shortness Of Breath/Wheezing Discontinued Furosemide Tab [Lasix Tab] 20 mg PO BID Potassium Chloride [Klor-Con M20] 20 meq PO BID predniSONE TAB [PredniSONE] 10 mg PO DAILY Metoprolol Succinate 75 mg PO QAM - Follow Up or Referral - Forms/Instructions Exam - Constitutional Vitals: Period Temp Pulse Resp BP Sys/Michael Pulse Ox Last 24 Hr 96.7 F-98.3 F 68-90 14-24 107-183/54-86 91-97 Exam: Examination: GENERAL: NAD. NECK: Neck is supple. CVS: Regular rate and rhythm. S1 and S2 are normal. RESPIRATORY: Lungs are clear. ABDOMEN: Soft and nontender. EXT: No edema. Peripheral pulses are present. STUDENT RECRUITER: Motor strength is 3-4/5 SKIN: Warm and dry. MSK: No obvious deformity. Discharge Results Procedures and tests throughout hospitalization: Pending Orders 02/12/17 22:11 Occult Blood, Stool Stat 02/14/17 08:56 Immunofixation Electro Serum Routine Immunoglob Free Light Chains Routine Serum Protein Electrophoresis Routine 02/15/17 08:09 Sputum Culture and Gram Stain Routine 02/17/17 04:00 Basic Metabolic Panel IN AM Comp Blood Count Auto Diff IN AM 02/18/17 04:00 Basic Metabolic Panel IN AM Comp Blood Count Auto Diff IN AM Labs on day of discharge: Labs from last 24 hours 02/16/17 02/16/17 02/15/17 06:04 06:03 16:15 WBC 5.2 D RBC 2.41 L Hgb 8.4 L Hct 25.1 L MCV 104.1 H MCH 35 H MCHC 33.5 RDW 20.8 H Plt Count 360 MPV 12.6 H Neut % (Auto) 79.7 H Lymph % (Auto) 12.3 L [place] % (Auto) 5.4 Eos % (Auto) 1.0 Baso % (Auto) 0.6 Neut # (Auto) 4.2 Lymph # (Auto) 0.6 L [place] # (Auto) 0.3 Eos # (Auto) 0.1 Baso # (Auto) 0.0 Immature Gran % 1.0 Nucleated RBC % 0.0 Immature Gran # 0.05 Nucleated RBCs # 0.00 Immature Plt Fraction 0.0 Sodium 135 L Potassium 5.0 Chloride 95 L Carbon Dioxide 35 H Anion Gap 10.0 BUN 26 H Creatinine 1.20 H GFR Calculation 43 BUN/Creatinine Ratio 21.00 H Glucose 135 H Calculated Osmolality 276.1 Calcium 8.8 Transferrin Troponin I 0.097 H D Pro Electrophoresis Int Albumin (PEP) Albumin (relative) Pznnc-4-Rbmsqywu Roqau-9-Kkjktgmp rel Wqkfl-9-Zxwmbqrc Aiekd-0-Lakrfdcb rel Dzdz-4-Spitwahz Drvg-7-Izbzbprg rel Gamma Globulins Gamma Globulins rel JOEY Interpretation Free [place] Light Chains Free Lambda Light Chain Free [place]/Lambda Ratio 02/15/17 02/15/17 02/14/17 11:30 08:57 08:56 WBC RBC Hgb Hct MCV MCH MCHC RDW Plt Count MPV Neut % (Auto) Lymph % (Auto) [place] % (Auto) Eos % (Auto) Baso % (Auto) Neut # (Auto) Lymph # (Auto) [place] # (Auto) Eos # (Auto) Baso # (Auto) Immature Gran % Nucleated RBC % Immature Gran # Nucleated RBCs # Immature Plt Fraction Sodium Potassium 4.2 Chloride Carbon Dioxide Anion Gap BUN Creatinine GFR Calculation BUN/Creatinine Ratio Glucose Calculated Osmolality Calcium Transferrin Troponin I 0.053 H Pro Electrophoresis Int Albumin (PEP) 4.1 Albumin (relative) 57.3 Ofgjs-7-Gzfiuwmv 0.3 Ktgkp-6-Lykjtuxf rel 4.1 Tfgyz-8-Wtyytohe 0.9 Opyre-5-Mlhcwebs rel 12.5 Vaqg-7-Rzwxbtcy 0.8 Gkza-6-Ditluuur rel 10.8 Gamma Globulins 1.1 Gamma Globulins rel 15.3 JOEY Interpretation Free [place] Light Chains Pending Free Lambda Light Chain Pending Free [place]/Lambda Ratio Pending 02/13/17 12:37 WBC RBC Hgb Hct MCV MCH MCHC RDW Plt Count MPV Neut % (Auto) Lymph % (Auto) [place] % (Auto) Eos % (Auto) Baso % (Auto) Neut # (Auto) Lymph # (Auto) [place] # (Auto) Eos # (Auto) Baso # (Auto) Immature Gran % Nucleated RBC % Immature Gran # Nucleated RBCs # Immature Plt Fraction Sodium Potassium Chloride Carbon Dioxide Anion Gap BUN Creatinine GFR Calculation BUN/Creatinine Ratio Glucose Calculated Osmolality Calcium Transferrin 189 L Troponin I Pro Electrophoresis Int Albumin (PEP) Albumin (relative) Sgqvc-1-Rjjvfszx Wcgcw-1-Xptqggsl rel Mzncf-2-Ittltylg Kquga-5-Uwocwdrw rel Konf-4-Jpyiddzr Mvdi-2-Pehkugbv rel Gamma Globulins Gamma Globulins rel JOEY Interpretation Free [place] Light Chains Free Lambda Light Chain Free [place]/Lambda Ratio DS: Provider Date of admission: 02/12/17 15:21 Primary care physician: Ryan White MD Attending physician on admission: Ryan Whiet MD Consults: 02/12/17 15:29 Consult to Case Mgmt/Social Srvs [CONS] Routine Reason for Case Mgmt/Social Srvs: Discharge Planning Consult to Physician [CONS] Routine Comment: Anemia, needs capsule endo Consulting Provider: Pedro Luis Perez Consulting Provider Notified: No When should Consulting Provider be notified: In am Person Notified: felisa Date Notified: 02/14/17 Time Notified: 07:56 02/12/17 16:54 Consult to Physician [CONS] Routine Comment: compression fx Consulting Provider: Jeff Choe When should Consulting Provider be notified: In am Person Notified: Dr. Choe Date Notified: 02/13/17 Time Notified: 08:27 02/13/17 11:51 Consult to Physician [CONS] Routine Comment: anemia of uncertain etiology; hx blood transfusion Consulting Provider: Gio Blackwell When should Consulting Provider be notified: In am Person Notified: CHRISTY Date Notified: 02/14/17 Time Notified: 09:36 02/14/17 10:09 Consult to Physician [CONS] Routine Comment: BLOOD PRESSURE, PT KNOWN TO YOU Consulting Provider: Joseph Dodd Person Notified: BENJAMIN Date Notified: 02/14/17 Time Notified: 10:25 02/14/17 15:49 Consult to Physician [CONS] Routine Comment: copd exacerbation Consulting Provider: Claudio Tyler Person Notified: char[place] Date Notified: 02/14/17 Time Notified: 16:27 02/15/17 08:08 Consult to Occupational Therapy [CONS] Routine Reason for Occupational Therapy: Weakness Consult to Physical Therapy [CONS] Routine Reason for Physical Therapy: Weakness Discharging clinician: Ryan White MD
[2017-02-16] MEDS: FUROSEMIDE 40 MG/4 ML VIAL IV SCH (08:59)
[2017-02-16] MEDS ORDERED: FUROSEMIDE 40 MG TABLET PO SCH (09:00)
[2017-02-16] MEDS ORDERED: predniSONE 20 MG TABLET PO SCH (09:00)
[2017-02-16] MEDS: traMADol 50 MG TABLET PO SCH ×2 (09:50→13:43)
[2017-02-16] MEDS: METOPROLOL SUCCINATE XL 50 MG TABLET PO SCH (09:52)
[2017-02-16] MEDS: DOCUSATE SODIUM 100 MG CAPSULE PO SCH (09:55)
[2017-02-16] MEDS: PANTOPRAZOLE 40 MG TABLET PO SCH (09:55)
[2017-02-16] MEDS: ASPIRIN EC 81 MG TABLET PO SCH (09:59)
[2017-02-16] MEDS: cefTRIAXone 1,000 MG in SODIUM CHLORIDE 0.9% 100 ML IV SCH (10:03)
--- NOTE | 2017-02-16 10:30 | Gastrointestinal Progress Note ---
<JoseCandie Curtis - Last Filed: 02/16/17 10:27> Assessment and Plan (1) Anemia Status: Acute Assessment and plan: 02/16-H&H is stable without overt bleeding. Tolerating diet well. For transfer to swing bed later today. Plan an addendum follow Dr. Perez. 02/14-admitted with severe back pain for tentative plan of kyphoplasty tomorrow with Eliquis being held. Findings of hemoglobin of 7, posttransfusion 2 units packed red blood cells with hemoglobin now 9. Symptomatic over last 2 weeks with weakness and shortness of breath. Small bowel PillCam canceled due to pacemaker. Stools for occult blood are pending. Hematology workup ongoing. Plan an addendum to followed by Dr. Perez. Gastroenterology - PN: Subj Interval history: CC: Anemia Patient is seen awake and alert with spouse at bedside. She is post kyphoplasty on yesterday and tolerated this well. States she has had an improvement in her back pain. Abdomen is soft, nontender. She is tolerating her diet well. She denies any overt bleeding. H&H is stable at 8.4/25.1. She is for transfer to swing bed later today. ROS: Denies shortness of breath or chest pain Exam (Progress Note) - Constitutional Vitals: Period Temp Pulse Resp BP Sys/Michael Pulse Ox Last 24 Hr 96.7 F-98.3 F 68-90 14-24 107-183/54-86 91-97 General appearance: normal weight, no acute distress - Head Head exam: Present: normal inspection, normocephalic - Eye Eye exam: Present: other (Lids and conjunctive are unremarkable). Absent: scleral icterus - ENT ENT exam: Present: normal exam, normal oropharynx - Neck Neck exam: Present: normal inspection - Respiratory Respiratory exam: Present: clear to auscultation bilaterally. Absent: rales, rhonchi, wheezes - Cardiovascular Cardiovascular exam: Present: regular rate and rhythm. Absent: diastolic murmur , JVD, systolic murmur - GI/Abdominal GI/Abdominal exam: Present: normal bowel sounds, soft. Absent: ascites, distended, mass, organomegaly, tenderness - Extremities Exam Extremities exam: Present: normal inspection, full ROM - Back Exam Back exam: Present: normal inspection - Neurological Exam Neurological exam: Present: alert, oriented X3 - Psychiatric Psychiatric exam: Present: normal affect, normal mood - Skin Skin exam: Present: normal color, warm, dry Results - Labs CBC & BMP: 02/16/17 06:04 02/16/17 06:03 Lab Results: I have reviewed the past 24 hour labs <Pedro Luis Perez - Last Filed: 02/16/17 20:03> Exam (Progress Note) - Constitutional Vitals: Period Temp Pulse Resp BP Sys/Michael Pulse Ox Last 24 Hr 96.7 F-98.3 F 71-83 14-20 133-183/60-76 95-98 Results - Labs CBC & BMP: 02/16/17 06:04 02/16/17 06:03
[2017-02-16 12:26] VITALS: BP 133/69
--- NOTE | 2017-02-16 12:57 | Pain Management Progress Note ---
Assessment and Plan (1) Compression fracture of thoracic vertebra Problem details: T6 fracture with new onset pain Status: Acute Assessment and plan: 02/16/2017. The patient is 1 day status post kyphoplasty of T6. She states that she is markedly better. Much better than 75% improved. Her activity levels improved. Agree with discharge planning regarding swing bed for strengthening core stabilization and transitioning. n 02/14/2017. The patient continues to have severe interscapular pain. X-ray demonstrates a T6 fracture that was not there on the previous x-ray. Bone scan did not show any significant uptake at T6 however it is not uncommon in someone who has significant osteoporosis with an acute fracture. It may simply take time to show up. With the bone scan did show was no other fractures which is encouraging. Her pain is consistent with the area of fracture and the type of pain is consistent with a vertebral fracture. Given the severity of her symptoms she is a candidate for a kyphoplasty. My concern at this point is that she has been fairly short of breath today and her chest x-ray demonstrates signs of possible CHF. I will tentatively schedule her for kyphoplasty tomorrow, however this may be moved to another day depending on her breathing and input from her specialists and Dr. White. If her pulmonary status is improved in the morning I will be glad to proceed with the kyphoplasty around noon tomorrow. y 02/13/2017. The patient is very pleasant 81-year-old female who is doing well in regards to pain until 2 days ago when she in the evening developed severe interscapular pain. The pain is worse with any movement. The pain is so bad that she can only out of bed with assistance. X-ray demonstrates a T6 wedge fracture approximately 30%. She has a pacemaker and at this time cannot have a MRI. She reports a remote history of vertebral fractures 30 years ago. This fracture was not present in February 2016 on x-ray. Will get a bone scan to confirm this level fracture and help rule out at the levels of fracture. She is a candidate for kyphoplasty given the severity of her pain new onset of her fracture in conjunction with the pain. Will consider proceeding with kyphoplasty on Tuesday of this coming week if she has been off the Eliquis for adequate period of time. Please note the patient came in anemic and required transfusion. She reports severe malaise and fatigue for the past 2 months that is progressively gotten worse. Y Current Visit: Yes Qualifiers: Qualified Code(s): S22.000A - Wedge compression fracture of unspecified thoracic vertebra, initial encounter for closed fracture Pain - Subjective Interval history: Much less back pain and increase mobilization Exam - Constitutional Vitals: Period Temp Pulse Resp BP Sys/Michael Pulse Ox Last 24 Hr 96.7 F-98.3 F 68-90 14-21 107-183/58-86 91-98 Results - Labs CBC & BMP: 02/16/17 06:04 02/16/17 06:03 Quality Measures - VTE Contraindication to Pharmacological VTE Prophylaxis: High Risk of Bleeding
[2017-02-16] MEDS: DIGOXIN 0.125 MG TABLET PO SCH (13:43)
--- NOTE | 2017-02-16 19:16 | Pathology Report from [facility] ---
[facility] ACCESSION # : [id number] PATIENT NAME : Bobby Mclaughlin ORDERING DR : VANESSA CASILLAS MD CLINICAL HX: T6 fracture POST-OP DX: Same SPECIMEN INFO: T6 vertebral body GROSS DESCRIPTION: The specimen is received in formalin labeled with the patients name BOBBY MCLAUGHLIN and consists of a 0.5 x 0.3 cm moore fragment of bone as well as an aggregate of clotted tissue measuring 3.5 x 0.5 cm. Submitted in one cassette following decalcification. DIAGNOSIS FOR BOBBY MCLAUGHLIN: T6 VERTEBRAL BODY BIOPSY: Cancellous bone fragments , hypocellular, with acute hemorrhage; no tumor seen. COLLECTED DATE: 02/15/2017 [facility] REPORT DATE: 02/16/2017 ELECTRONICALLY SIGNED BY: Una Keys M.D. 02/16/2017 - 13:05:00 HONEY
[2017-02-17 12:29] LABS: Immuno Free Light Chain Kappa 3.71 MG/DL (0.33-1.94); Immuno Free Light Chain Ratio 1.24 MG/DL (0.26-1.65)
--- NOTE | 2017-02-18 14:21 | Physician Query Form ---
CLICK EDIT DOCUMENT TO SELECT QUERY ANSWER --> OK --> SIGN Batsheva Batista RN Clinical Chip Drier W) [phone] (f) [phone] [email or web address] PROVIDERS: Make your selection(s) from the choices in EACH section by typing an "x" and enter comments in the comment section. Please use your independent medical judgment in providing your response. This request does not imply that any particular answer is desired or expected. CLINICAL INDICATORS: (Providers should not edit this section) Based on conflicting documentation of "Acute wedge compression fracture" and "Acute T6 osteoporotic compression fracture" Treated with kyphoplasty. Based on the above, could you clarify the appropriate diagnosis, if significant , that supports the above abnormalities and additional evaluation, monitoring, and/or treatment rendered: ( ) Acute wedge compression fracture ( x) Acute osteoporotic compression fracture ( ) Other, please specify: ( ) Clinically unable to determine COMMENTS: PLEASE ALSO DOCUMENT RESPONSE IN PROGRESS NOTES AND/OR DISCHARGE SUMMARY Use of terms such as suspected, likely, or probable (associated with a specific diagnosis that is being evaluated, monitored, or treated as if it exists) are acceptable and can be restated in the discharge summary if not ruled out. [facility]
== END 2017-02-16 14:50 | disposition swing bed (61) | DRG 478 ==
LOC: N.ED 09:40 → N.EDINP 14:12 → N.2E 15:28
PROVIDERS: ADMIT Internal Medicine; ATTEND Internal Medicine

== ENCOUNTER 2017-04-04 13:26 | Inpatient (IN) ==
[2017-04-04] MEDS ORDERED: HYDROmorphone 2 MG/1 ML VIAL IV STA ×2 (13:55→14:05)
[2017-04-04] MEDS ORDERED: ONDANSETRON 4 MG/2 ML VIAL IV STA (13:55)
[2017-04-04] MEDS ORDERED: HYDROmorphone 2 MG/1 ML VIAL ONE (13:56)
[2017-04-04] MEDS ORDERED: ONDANSETRON 4 MG/2 ML VIAL ONE (13:56)
[2017-04-04] MEDS ORDERED: ACETAMINOPHEN 325 MG TABLET PO PRN (16:12)
[2017-04-04] MEDS ORDERED: fentaNYL 100 MCG/2 ML VIAL IV PRN (16:12)
[2017-04-04] MEDS: SODIUM CHLORIDE 0.9% 1,000 ML IV SCH (16:41)
[2017-04-04 17:30] LABS: Basophils # 0.1 10*3/uL (0.0-0.2); Eosinophils # 0.2 10*3/uL (0.0-0.87); Eosinophils % 2.8 % (0.00-10.9); Hematocrit 25.9 VOL% (35.7-47.0); Hemoglobin 8.6 GM/DL (12.0-16.0); Immature Granulocytes % 0.7 %; Immature Granulocytes Absolute 0.06 #; Lymphocytes # 1.6 10*3/uL (1.4-4.0); Lymphocytes % 19.3 % (21.3-54.2); Mean Corpuscular HGB Conc 33.2 GM/DL (32-36); Mean Corpuscular Hemoglobin 36 PG (27-34); Mean Corpuscular Volume 107.9 FL (87-102); Mean Platelet Volume 11.9 FL (9.6-12.0); Monocytes # 0.5 10*3/uL (0.11-0.8); Monocytes % 6.1 % (1.7-12.7); Neutrophils # 5.7 10*3/uL (1.4-7.4); Neutrophils % 70.1 % (38.7-73.9); Platelet Count 528 T/CUMM (130-400); Red Cell Distribution Width 22.5 % (9.3-17.3); White Blood Count 8.1 T/CUMM (4-12)
[2017-04-04] MEDS: HYDROmorphone 2 MG/1 ML VIAL IV PRN (17:51)
[2017-04-04] MEDS: DIGOXIN 0.125 MG TABLET PO SCH (17:52)
[2017-04-04] MEDS: LIDOCAINE 5% PATCH TRANSDERM SCH (17:52)
[2017-04-04 17:55] LABS: Calcium 9.4 MG/DL (8.5-10.1); Osmolality,Calculated 275.2 MOS/KG (273-304); Potassium 4.6 MMOL/L (3.5-5.1)
[2017-04-04] MEDS: DOCUSATE SODIUM 100 MG CAPSULE PO SCH (20:58)
[2017-04-04] MEDS: DULoxetine 30 MG CAPSULE PO SCH (20:58)
[2017-04-04] MEDS: METHOCARBAMOL 750 MG TABLET PO SCH (20:59)
[2017-04-04] MEDS: POTASSIUM CHLORIDE 8 MEQ CAPSULE PO SCH (20:59)
[2017-04-04] MEDS: FERROUS SULFATE 325 MG TABLET PO SCH (20:59)
[2017-04-04] MEDS: traMADol 50 MG TABLET PO SCH (20:59)
[2017-04-05] MEDS: HYDROmorphone 2 MG/1 ML VIAL IV PRN ×4 (01:06→19:48)
[2017-04-05] MEDS: SODIUM CHLORIDE 0.9% 1,000 ML IV SCH ×2 (03:00→16:10)
[2017-04-05] MEDS ORDERED: PANTOPRAZOLE 40 MG TABLET PO SCH (09:00)
[2017-04-05] MEDS ORDERED: BIOTIN 1 MG PO SCH (09:00)
[2017-04-05] MEDS: METHOCARBAMOL 750 MG TABLET PO SCH ×3 (09:10→21:03)
[2017-04-05] MEDS: LIDOCAINE 5% PATCH TRANSDERM SCH (09:10)
[2017-04-05] MEDS: FERROUS SULFATE 325 MG TABLET PO SCH ×3 (09:10→21:03)
[2017-04-05] MEDS: FUROSEMIDE 40 MG TABLET PO SCH ×2 (09:10→15:05)
[2017-04-05] MEDS: POTASSIUM CHLORIDE 8 MEQ CAPSULE PO SCH ×2 (09:10→21:03)
[2017-04-05] MEDS: METOPROLOL SUCCINATE XL 25 MG TABLET PO SCH (09:10)
[2017-04-05] MEDS: predniSONE 20 MG TABLET PO SCH (09:11)
[2017-04-05] MEDS: DOCUSATE SODIUM 100 MG CAPSULE PO SCH ×2 (09:11→21:02)
[2017-04-05] MEDS: PANTOPRAZOLE 40 MG TABLET PO SCH (09:11)
[2017-04-05] MEDS: traMADol 50 MG TABLET PO SCH ×3 (09:11→21:03)
[2017-04-05] MEDS: BISACODYL 10 MG SUPP RECTAL PRN (15:06)
[2017-04-05] MEDS: MAGNESIUM HYDROXIDE SUSP 30 ML UDCUP PO PRN (16:52)
[2017-04-05] MEDS ORDERED: ALUMINUM/MAGNES/SIMETH MAX STR 30 ML UDCUP PO PRN (20:50)
[2017-04-05] MEDS: DULoxetine 30 MG CAPSULE PO SCH (21:02)
[2017-04-06] MEDS: HYDROmorphone 2 MG/1 ML VIAL IV PRN ×2 (00:30→09:05)
[2017-04-06 06:35] LABS: Calcium 8.9 MG/DL (8.5-10.1); Osmolality,Calculated 278.7 MOS/KG (273-304); Potassium 4.2 MMOL/L (3.5-5.1)
[2017-04-06 07:56] LABS: Basophils % 0.3 % (0.0-0.8); Eosinophils # 0.2 10*3/uL (0.0-0.87); Eosinophils % 3.8 % (0.00-10.9); Hematocrit 21.3 VOL% (35.7-47.0); Immature Granulocytes Absolute 0.06 #; Lymphocytes # 1.3 10*3/uL (1.4-4.0); Lymphocytes % 21.7 % (21.3-54.2); Mean Corpuscular HGB Conc 33.3 GM/DL (32-36); Mean Corpuscular Hemoglobin 36 PG (27-34); Mean Corpuscular Volume 108.7 FL (87-102); Mean Platelet Volume 12.2 FL (9.6-12.0); Monocytes # 0.4 10*3/uL (0.11-0.8); Monocytes % 7.3 % (1.7-12.7); Neutrophils % 65.9 % (38.7-73.9); Red Blood Count 1.96 MC/CUMM (3.8-5.5); Red Cell Distribution Width 22.5 % (9.3-17.3)
[2017-04-06 08:02] LABS: Hemoglobin 7.1 GM/DL (12.0-16.0); Platelet Count 380 T/CUMM (130-400)
[2017-04-06 08:14] LABS: Giant Platelets Few; Hypochromasia 1+; Macrocytosis Slight; Ovalocytes Slight; Platelet Estimate Adequate
[2017-04-06] MEDS: LIDOCAINE 5% PATCH TRANSDERM SCH (08:44)
[2017-04-06] MEDS: ONDANSETRON 4 MG/2 ML VIAL IV PRN ×2 (08:45→21:10)
[2017-04-06] MEDS: predniSONE 20 MG TABLET PO SCH (08:46)
[2017-04-06] MEDS: FERROUS SULFATE 325 MG TABLET PO SCH ×3 (08:46→20:06)
[2017-04-06] MEDS: FUROSEMIDE 40 MG TABLET PO SCH ×2 (08:46→16:39)
[2017-04-06] MEDS: traMADol 50 MG TABLET PO SCH ×3 (08:46→20:07)
[2017-04-06] MEDS: METOPROLOL SUCCINATE XL 25 MG TABLET PO SCH (08:46)
[2017-04-06] MEDS: MAGNESIUM HYDROXIDE SUSP 30 ML UDCUP PO PRN (08:47)
[2017-04-06] MEDS: CYANOCOBALAMIN 500 MCG TABLET PO SCH (08:47)
[2017-04-06] MEDS: METHOCARBAMOL 750 MG TABLET PO SCH ×3 (08:47→20:06)
[2017-04-06] MEDS: POTASSIUM CHLORIDE 8 MEQ CAPSULE PO SCH ×2 (08:47→20:06)
[2017-04-06] MEDS: DOCUSATE SODIUM 100 MG CAPSULE PO SCH ×2 (08:47→20:07)
[2017-04-06] MEDS: PANTOPRAZOLE 40 MG TABLET PO SCH (08:47)
[2017-04-06] MEDS ORDERED: FUROSEMIDE 40 MG/4 ML VIAL IV PRN (09:00)
[2017-04-06] MEDS ORDERED: SODIUM CHLORIDE 0.9% 250 ML IV PRN (09:00)
[2017-04-06] MEDS: LACTULOSE 20 GM/30 ML UDCUP PO PRN (16:39)
[2017-04-06] MEDS: DIGOXIN 0.125 MG TABLET PO SCH (18:16)
[2017-04-06] MEDS: DULoxetine 30 MG CAPSULE PO SCH (20:07)
[2017-04-07] MEDS: HYDROmorphone 2 MG/1 ML VIAL IV PRN (02:21)
[2017-04-07] MEDS: LACTULOSE 20 GM/30 ML UDCUP PO PRN ×2 (02:23→11:46)
[2017-04-07] MEDS: SODIUM CHLORIDE 0.9% 1,000 ML IV SCH ×2 (06:23→17:56)
[2017-04-07 06:38] LABS: Basophils % 0.7 % (0.0-0.8); Eosinophils # 0.2 10*3/uL (0.0-0.87); Hematocrit 27.1 VOL% (35.7-47.0); Immature Granulocytes % 0.7 %; Immature Granulocytes Absolute 0.04 #; Lymphocytes % 16.6 % (21.3-54.2); Mean Corpuscular HGB Conc 33.6 GM/DL (32-36); Mean Corpuscular Hemoglobin 34 PG (27-34); Mean Platelet Volume 11.8 FL (9.6-12.0); Monocytes # 0.4 10*3/uL (0.11-0.8); Monocytes % 7.3 % (1.7-12.7); Neutrophils # 4.3 10*3/uL (1.4-7.4); Neutrophils % 71.7 % (38.7-73.9); Platelet Count 382 T/CUMM (130-400); Red Cell Distribution Width 24.6 % (9.3-17.3)
[2017-04-07 06:53] LABS: Red Blood Count 2.71 MC/CUMM (3.8-5.5)
[2017-04-07 06:54] LABS: Hemoglobin 9.1 GM/DL (12.0-16.0)
[2017-04-07 07:07] LABS: Band Neutrophils 4 % (0-10); Eosinophils 1 % (0-10); Hypochromasia 1+; Lymphocytes 15 % (20-55); Nucleated Red Blood Cells 1 (0-5); Segmented Neutrophils 77 % (50-85); Total Cells Counted 100
[2017-04-07 07:08] LABS: Macrocytosis 1+; Platelet Estimate Normal
[2017-04-07 07:18] LABS: Calcium 8.9 MG/DL (8.5-10.1); Osmolality,Calculated 277.7 MOS/KG (273-304); Potassium 4.3 MMOL/L (3.5-5.1)
[2017-04-07] MEDS: ONDANSETRON 4 MG/2 ML VIAL IV PRN ×2 (09:45→20:48)
[2017-04-07] MEDS: traMADol 50 MG TABLET PO SCH ×3 (09:47→20:49)
[2017-04-07] MEDS: METHOCARBAMOL 750 MG TABLET PO SCH ×3 (09:48→20:49)
[2017-04-07] MEDS: LIDOCAINE 5% PATCH TRANSDERM SCH (09:50)
[2017-04-07] MEDS: METOPROLOL SUCCINATE XL 25 MG TABLET PO SCH (11:44)
[2017-04-07] MEDS: FUROSEMIDE 40 MG TABLET PO SCH ×2 (11:45→15:01)
[2017-04-07] MEDS: POTASSIUM CHLORIDE 8 MEQ CAPSULE PO SCH ×2 (11:45→20:49)
[2017-04-07] MEDS: FERROUS SULFATE 325 MG TABLET PO SCH ×3 (11:45→20:49)
[2017-04-07] MEDS: predniSONE 20 MG TABLET PO SCH (11:45)
[2017-04-07] MEDS: PANTOPRAZOLE 40 MG TABLET PO SCH (11:46)
[2017-04-07] MEDS: BISACODYL 10 MG SUPP RECTAL PRN (11:54)
[2017-04-07] MEDS ORDERED: ceFAZolin 2,000 MG in PREMIX 1 EACH IV ONE (12:32)
[2017-04-07] MEDS: DOCUSATE SODIUM 100 MG CAPSULE PO SCH ×2 (14:53→20:49)
[2017-04-07] MEDS: DULoxetine 30 MG CAPSULE PO SCH (20:49)
[2017-04-08] MEDS ORDERED: ROPIVACAINE 0.5% 30 ML VIAL ONE (06:17)
[2017-04-08] MEDS ORDERED: TISSUE ADHESIVE 1 EACH APPLICATOR TOP ONE (06:17)
[2017-04-08] MEDS: FUROSEMIDE 40 MG TABLET PO SCH ×3 (07:25→17:37)
[2017-04-08] MEDS: traMADol 50 MG TABLET PO SCH ×3 (10:39→20:57)
[2017-04-08] MEDS: METOPROLOL SUCCINATE XL 25 MG TABLET PO SCH (10:39)
[2017-04-08] MEDS: CYANOCOBALAMIN 500 MCG TABLET PO SCH (10:39)
[2017-04-08] MEDS: METHOCARBAMOL 750 MG TABLET PO SCH ×3 (10:40→20:58)
[2017-04-08] MEDS: FERROUS SULFATE 325 MG TABLET PO SCH ×3 (10:40→20:57)
[2017-04-08] MEDS: DOCUSATE SODIUM 100 MG CAPSULE PO SCH ×2 (10:40→20:58)
[2017-04-08] MEDS: POTASSIUM CHLORIDE 8 MEQ CAPSULE PO SCH ×2 (10:41→20:57)
[2017-04-08] MEDS: predniSONE 20 MG TABLET PO SCH (10:41)
[2017-04-08] MEDS: PANTOPRAZOLE 40 MG TABLET PO SCH (10:41)
[2017-04-08] MEDS: SODIUM CHLORIDE 0.9% 1,000 ML IV SCH (10:46)
[2017-04-08] MEDS: DIGOXIN 0.125 MG TABLET PO SCH ×2 (10:49→17:15)
[2017-04-08] MEDS: LIDOCAINE 5% PATCH TRANSDERM SCH (10:51)
[2017-04-08] MEDS ORDERED: KETAMINE 500 MG/10 ML VIAL ONE (11:30)
[2017-04-08] MEDS ORDERED: SODIUM CHLORIDE 0.9% 250 ML IV ONE (11:30)
[2017-04-08] MEDS ORDERED: fentaNYL 100 MCG/2 ML VIAL ONE (11:30)
[2017-04-08] MEDS ORDERED: PROPOFOL 200 MG/20 ML VIAL IV ONE (11:30)
[2017-04-08] MEDS: DULoxetine 30 MG CAPSULE PO SCH (20:58)
[2017-04-09 05:02] LABS: Basophils % 0.7 % (0.0-0.8); Eosinophils # 0.2 10*3/uL (0.0-0.87); Eosinophils % 5.5 % (0.00-10.9); Hematocrit 26.4 VOL% (35.7-47.0); Immature Granulocytes Absolute 0.04 #; Lymphocytes # 1.3 10*3/uL (1.4-4.0); Lymphocytes % 31.7 % (21.3-54.2); Mean Corpuscular HGB Conc 34.1 GM/DL (32-36); Mean Corpuscular Hemoglobin 34 PG (27-34); Monocytes # 0.4 10*3/uL (0.11-0.8); Monocytes % 9.7 % (1.7-12.7); Neutrophils # 2.1 10*3/uL (1.4-7.4); Neutrophils % 51.4 % (38.7-73.9); Platelet Count 374 T/CUMM (130-400); Red Blood Count 2.64 MC/CUMM (3.8-5.5)
[2017-04-09 05:33] LABS: Calcium 8.6 MG/DL (8.5-10.1); Magnesium 2.3 MG/DL (1.8-2.4); Potassium 3.6 MMOL/L (3.5-5.1)
[2017-04-09] MEDS: SODIUM CHLORIDE 0.9% 1,000 ML IV SCH ×2 (05:40→11:58)
[2017-04-09 06:40] LABS: Hypochromasia 1+
[2017-04-09 06:41] LABS: Macrocytosis 1+; Platelet Estimate Normal
[2017-04-09] MEDS: DOCUSATE SODIUM 100 MG CAPSULE PO SCH ×2 (11:22→21:04)
[2017-04-09] MEDS: FERROUS SULFATE 325 MG TABLET PO SCH ×3 (11:23→21:04)
[2017-04-09] MEDS: LIDOCAINE 5% PATCH TRANSDERM SCH (11:23)
[2017-04-09] MEDS: FUROSEMIDE 40 MG TABLET PO SCH ×2 (11:23→16:29)
[2017-04-09] MEDS: METHOCARBAMOL 750 MG TABLET PO SCH ×3 (11:30→21:04)
[2017-04-09] MEDS: POTASSIUM CHLORIDE 8 MEQ CAPSULE PO SCH ×2 (11:30→21:04)
[2017-04-09] MEDS: METOPROLOL SUCCINATE XL 25 MG TABLET PO SCH (11:30)
[2017-04-09] MEDS: traMADol 50 MG TABLET PO SCH ×3 (11:30→21:04)
[2017-04-09] MEDS: predniSONE 20 MG TABLET PO SCH (11:31)
[2017-04-09] MEDS: PANTOPRAZOLE 40 MG TABLET PO SCH (11:31)
[2017-04-09] MEDS: DULoxetine 30 MG CAPSULE PO SCH (21:04)
[2017-04-10 07:27] LABS: Basophils # 0.1 10*3/uL (0.0-0.2); Basophils % 1.2 % (0.0-0.8); Eosinophils # 0.2 10*3/uL (0.0-0.87); Eosinophils % 4.7 % (0.00-10.9); Hematocrit 28.2 VOL% (35.7-47.0); Hemoglobin 9.5 GM/DL (12.0-16.0); Immature Granulocytes % 0.7 %; Immature Granulocytes Absolute 0.03 #; Lymphocytes # 1.4 10*3/uL (1.4-4.0); Lymphocytes % 31.9 % (21.3-54.2); Mean Corpuscular HGB Conc 33.7 GM/DL (32-36); Mean Corpuscular Hemoglobin 34 PG (27-34); Mean Corpuscular Volume 99.3 FL (87-102); Mean Platelet Volume 11.4 FL (9.6-12.0); Monocytes # 0.4 10*3/uL (0.11-0.8); Neutrophils # 2.2 10*3/uL (1.4-7.4); Neutrophils % 51.5 % (38.7-73.9); Platelet Count 389 T/CUMM (130-400); Red Blood Count 2.84 MC/CUMM (3.8-5.5); Red Cell Distribution Width 21.2 % (9.3-17.3); White Blood Count 4.3 T/CUMM (4-12)
[2017-04-10 07:59] LABS: Calcium 8.7 MG/DL (8.5-10.1); Magnesium 2.4 MG/DL (1.8-2.4); Osmolality,Calculated 271.8 MOS/KG (273-304); Potassium 3.7 MMOL/L (3.5-5.1)
[2017-04-10] MEDS: traMADol 50 MG TABLET PO SCH ×3 (10:13→22:11)
[2017-04-10] MEDS: LACTULOSE 20 GM/30 ML UDCUP PO PRN (10:13)
[2017-04-10] MEDS: PANTOPRAZOLE 40 MG TABLET PO SCH (10:14)
[2017-04-10] MEDS: POTASSIUM CHLORIDE 8 MEQ CAPSULE PO SCH ×2 (10:14→22:11)
[2017-04-10] MEDS: CYANOCOBALAMIN 500 MCG TABLET PO SCH (10:14)
[2017-04-10] MEDS: METOPROLOL SUCCINATE XL 25 MG TABLET PO SCH (10:14)
[2017-04-10] MEDS: METHOCARBAMOL 750 MG TABLET PO SCH ×3 (10:14→22:11)
[2017-04-10] MEDS: DOCUSATE SODIUM 100 MG CAPSULE PO SCH ×2 (10:14→22:12)
[2017-04-10] MEDS: FUROSEMIDE 40 MG TABLET PO SCH ×2 (10:14→15:32)
[2017-04-10] MEDS: LIDOCAINE 5% PATCH TRANSDERM SCH (10:15)
[2017-04-10] MEDS: FERROUS SULFATE 325 MG TABLET PO SCH ×3 (10:15→22:12)
[2017-04-10] MEDS: predniSONE 20 MG TABLET PO SCH (10:15)
[2017-04-10] MEDS: DULoxetine 30 MG CAPSULE PO SCH (22:12)
[2017-04-11 05:46] LABS: Basophils # 0.1 10*3/uL (0.0-0.2); Basophils % 1.2 % (0.0-0.8); Eosinophils # 0.2 10*3/uL (0.0-0.87); Eosinophils % 4.6 % (0.00-10.9); Hemoglobin 9.7 GM/DL (12.0-16.0); Immature Granulocytes % 0.7 %; Immature Granulocytes Absolute 0.03 #; Lymphocytes # 1.5 10*3/uL (1.4-4.0); Mean Corpuscular HGB Conc 33.4 GM/DL (32-36); Mean Corpuscular Hemoglobin 34 PG (27-34); Mean Corpuscular Volume 100.3 FL (87-102); Mean Platelet Volume 11.9 FL (9.6-12.0); Monocytes # 0.4 10*3/uL (0.11-0.8); Monocytes % 10.2 % (1.7-12.7); Neutrophils # 1.9 10*3/uL (1.4-7.4); Neutrophils % 46.3 % (38.7-73.9); Platelet Count 396 T/CUMM (130-400); Red Blood Count 2.89 MC/CUMM (3.8-5.5); Red Cell Distribution Width 21.4 % (9.3-17.3); White Blood Count 4.1 T/CUMM (4-12)
[2017-04-11 06:17] LABS: Calcium 8.7 MG/DL (8.5-10.1); Magnesium 2.5 MG/DL (1.8-2.4); Potassium 3.5 MMOL/L (3.5-5.1)
[2017-04-11 07:39] VITALS: BP 141/68
[2017-04-11] MEDS: POTASSIUM CHLORIDE 8 MEQ CAPSULE PO SCH (08:30)
[2017-04-11] MEDS: FERROUS SULFATE 325 MG TABLET PO SCH (08:30)
[2017-04-11] MEDS: traMADol 50 MG TABLET PO SCH (08:30)
[2017-04-11] MEDS: METOPROLOL SUCCINATE XL 25 MG TABLET PO SCH (08:31)
[2017-04-11] MEDS: METHOCARBAMOL 750 MG TABLET PO SCH (08:31)
[2017-04-11] MEDS: FUROSEMIDE 40 MG TABLET PO SCH (08:31)
[2017-04-11] MEDS: predniSONE 20 MG TABLET PO SCH (08:31)
[2017-04-11] MEDS: PANTOPRAZOLE 40 MG TABLET PO SCH (08:31)
[2017-04-11] MEDS: DOCUSATE SODIUM 100 MG CAPSULE PO SCH (08:31)
[2017-04-11] MEDS: LIDOCAINE 5% PATCH TRANSDERM SCH (08:31)
== END 2017-04-11 10:26 | disposition home health service (06) | DRG 516 ==
LOC: EDBD → EDUNIT# → N.ED 13:26 → N.EDINP 15:09 → N.2E 16:11
PROVIDERS: ADMIT Internal Medicine; ATTEND Internal Medicine

== ENCOUNTER 2017-05-29 14:09 | Inpatient (IN) ==
[2017-05-29 15:40] LABS: Basophils % 0.6 % (0.0-0.8); Eosinophils % 0.6 % (0.00-10.9); Hematocrit 25.2 VOL% (35.7-47.0); Hemoglobin 8.2 GM/DL (12.0-16.0); Immature Granulocytes % 0.8 %; Immature Granulocytes Absolute 0.04 #; Lymphocytes # 0.6 10*3/uL (1.4-4.0); Lymphocytes % 12.3 % (21.3-54.2); Mean Corpuscular HGB Conc 32.5 GM/DL (32-36); Mean Corpuscular Hemoglobin 33 PG (27-34); Mean Corpuscular Volume 101.2 FL (87-102); Mean Platelet Volume 11.9 FL (9.6-12.0); Monocytes # 0.2 10*3/uL (0.11-0.8); Neutrophils # 4.1 10*3/uL (1.4-7.4); Neutrophils % 81.7 % (38.7-73.9); Platelet Count 473 T/CUMM (130-400); Red Blood Count 2.49 MC/CUMM (3.8-5.5); Red Cell Distribution Width 22.1 % (9.3-17.3)
[2017-05-29 15:50] LABS: PT Patient Result 10.5 SECS
[2017-05-29 16:06] LABS: Albumin 3.4 G/DL (3.4-5.0); Bilirubin,Total 0.4 MG/DL (0.2-1.0); Calcium 8.5 MG/DL (8.5-10.1); Osmolality,Calculated 274.2 MOS/KG (273-304); Potassium 3.5 MMOL/L (3.5-5.1); Total Protein 6.9 G/DL (6.4-8.3)
[2017-05-29] MEDS ORDERED: SODIUM CHLORIDE 0.9% 500 ML IV STA (16:18)
[2017-05-29] MEDS ORDERED: ACETAMINOPHEN 325 MG TABLET PO PRN (16:33)
[2017-05-29] MEDS ORDERED: ONDANSETRON 4 MG/2 ML VIAL IV PRN (16:33)
[2017-05-29] MEDS ORDERED: traMADol 50 MG TABLET PO SCH (17:00)
[2017-05-29] MEDS: SODIUM CHLORIDE 0.9% 1,000 ML IV SCH (20:52)
[2017-05-29] MEDS: DOCUSATE SODIUM 100 MG CAPSULE PO SCH (20:52)
[2017-05-29] MEDS ORDERED: METHOCARBAMOL 750 MG TABLET PO PRN (21:46)
[2017-05-29] MEDS: APIXABAN 2.5 MG TABLET PO SCH (22:53)
[2017-05-29] MEDS: DULoxetine 30 MG CAPSULE PO SCH (22:54)
[2017-05-29] MEDS: POTASSIUM CHLORIDE 8 MEQ CAPSULE PO SCH (22:54)
[2017-05-29] MEDS: FERROUS SULFATE 325 MG TABLET PO SCH (22:54)
[2017-05-29] MEDS: FUROSEMIDE 40 MG TABLET PO SCH (22:54)
[2017-05-29] MEDS: CYANOCOBALAMIN 500 MCG TABLET PO SCH (22:54)
[2017-05-29] MEDS: METHOCARBAMOL 1,000 MG/10 ML VIAL IV SCH (22:55)
[2017-05-30 03:24] LABS: Eosinophils # 0.1 10*3/uL (0.0-0.87); Eosinophils % 2.7 % (0.00-10.9); Hematocrit 22.7 VOL% (35.7-47.0); Hemoglobin 7.4 GM/DL (12.0-16.0); Immature Granulocytes % 0.7 %; Immature Granulocytes Absolute 0.03 #; Lymphocytes # 1.6 10*3/uL (1.4-4.0); Lymphocytes % 37.8 % (21.3-54.2); Mean Corpuscular HGB Conc 32.6 GM/DL (32-36); Mean Corpuscular Hemoglobin 33 PG (27-34); Mean Corpuscular Volume 101.8 FL (87-102); Mean Platelet Volume 12.1 FL (9.6-12.0); Monocytes # 0.4 10*3/uL (0.11-0.8); Monocytes % 8.4 % (1.7-12.7); Neutrophils # 2.1 10*3/uL (1.4-7.4); Neutrophils % 49.4 % (38.7-73.9); Platelet Count 421 T/CUMM (130-400); Red Blood Count 2.23 MC/CUMM (3.8-5.5); Red Cell Distribution Width 22.5 % (9.3-17.3); White Blood Count 4.2 T/CUMM (4-12)
[2017-05-30 03:51] LABS: Calcium 7.8 MG/DL (8.5-10.1); Magnesium 2.2 MG/DL (1.8-2.4); Osmolality,Calculated 279.5 MOS/KG (273-304); Potassium 3.6 MMOL/L (3.5-5.1)
[2017-05-30] MEDS ORDERED: NON-FORMULARY MEDICATION (Biotin [Biotin] 1,000 MCG) PO SCH (09:00)
[2017-05-30] MEDS: FERROUS SULFATE 325 MG TABLET PO SCH ×3 (09:38→23:37)
[2017-05-30] MEDS: LINACLOTIDE 145 MCG CAPSULE PO SCH (09:38)
[2017-05-30] MEDS: PANTOPRAZOLE 40 MG TABLET PO SCH (09:39)
[2017-05-30] MEDS: METOPROLOL SUCCINATE XL 25 MG TABLET PO SCH (09:41)
[2017-05-30] MEDS: POTASSIUM CHLORIDE 8 MEQ CAPSULE PO SCH ×2 (09:44→22:34)
[2017-05-30] MEDS: predniSONE 20 MG TABLET PO SCH (09:45)
[2017-05-30] MEDS: FUROSEMIDE 40 MG TABLET PO SCH ×2 (09:46→22:33)
[2017-05-30] MEDS: DOCUSATE SODIUM 100 MG CAPSULE PO SCH ×2 (09:46→22:34)
[2017-05-30] MEDS: METHOCARBAMOL 1,000 MG/10 ML VIAL IV SCH ×2 (09:47→23:37)
[2017-05-30] MEDS: APIXABAN 2.5 MG TABLET PO SCH ×2 (09:50→22:33)
[2017-05-30] MEDS: DIGOXIN 0.125 MG TABLET PO SCH (09:50)
[2017-05-30] MEDS: CYANOCOBALAMIN 500 MCG TABLET PO SCH ×3 (09:50→22:33)
[2017-05-30] MEDS ORDERED: SODIUM CHLORIDE 0.9% 1,000 ML IV PRN (12:07)
[2017-05-30] MEDS: DULoxetine 30 MG CAPSULE PO SCH (22:34)
[2017-05-31] MEDS: traMADol 50 MG TABLET PO PRN (04:20)
[2017-05-31 06:08] LABS: Basophils # 0.1 10*3/uL (0.0-0.2); Basophils % 1.2 % (0.0-0.8); Eosinophils # 0.1 10*3/uL (0.0-0.87); Eosinophils % 3.3 % (0.00-10.9); Immature Granulocytes % 0.7 %; Immature Granulocytes Absolute 0.03 #; Lymphocytes # 1.5 10*3/uL (1.4-4.0); Lymphocytes % 34.9 % (21.3-54.2); Mean Corpuscular HGB Conc 32.7 GM/DL (32-36); Mean Corpuscular Hemoglobin 31 PG (27-34); Mean Corpuscular Volume 95.2 FL (87-102); Mean Platelet Volume 11.9 FL (9.6-12.0); Monocytes # 0.4 10*3/uL (0.11-0.8); Monocytes % 9.4 % (1.7-12.7); Neutrophils # 2.2 10*3/uL (1.4-7.4); Neutrophils % 50.5 % (38.7-73.9); Platelet Count 405 T/CUMM (130-400); Red Blood Count 3.15 MC/CUMM (3.8-5.5); Red Cell Distribution Width 21.9 % (9.3-17.3); White Blood Count 4.3 T/CUMM (4-12)
[2017-05-31 06:09] LABS: Hemoglobin 9.8 GM/DL (12.0-16.0)
[2017-05-31 06:37] LABS: Magnesium 2.1 MG/DL (1.8-2.4); Osmolality,Calculated 278.4 MOS/KG (273-304); Potassium 3.3 MMOL/L (3.5-5.1)
[2017-05-31] MEDS: LINACLOTIDE 145 MCG CAPSULE PO SCH (08:23)
[2017-05-31] MEDS: FERROUS SULFATE 325 MG TABLET PO SCH ×3 (11:15→21:29)
[2017-05-31] MEDS: predniSONE 20 MG TABLET PO SCH (11:15)
[2017-05-31] MEDS: POTASSIUM CHLORIDE 8 MEQ CAPSULE PO SCH ×2 (11:15→21:16)
[2017-05-31] MEDS: FUROSEMIDE 40 MG TABLET PO SCH ×2 (11:15→21:16)
[2017-05-31] MEDS: APIXABAN 2.5 MG TABLET PO SCH ×2 (11:15→21:16)
[2017-05-31] MEDS: METOPROLOL SUCCINATE XL 25 MG TABLET PO SCH (11:16)
[2017-05-31] MEDS: PANTOPRAZOLE 40 MG TABLET PO SCH (11:16)
[2017-05-31] MEDS: DOCUSATE SODIUM 100 MG CAPSULE PO SCH ×2 (11:18→21:17)
[2017-05-31] MEDS: CYANOCOBALAMIN 500 MCG TABLET PO SCH ×3 (11:35→21:15)
[2017-05-31] MEDS: METHOCARBAMOL 1,000 MG/10 ML VIAL IV SCH ×2 (18:22→21:30)
[2017-05-31] MEDS: DULoxetine 30 MG CAPSULE PO SCH (21:16)
[2017-06-01] MEDS: traMADol 50 MG TABLET PO PRN (02:08)
[2017-06-01 07:28] LABS: Basophils # 0.1 10*3/uL (0.0-0.2); Basophils % 1.1 % (0.0-0.8); Eosinophils # 0.2 10*3/uL (0.0-0.87); Eosinophils % 3.8 % (0.00-10.9); Hematocrit 31.7 VOL% (35.7-47.0); Hemoglobin 10.5 GM/DL (12.0-16.0); Immature Granulocytes % 0.7 %; Immature Granulocytes Absolute 0.03 #; Lymphocytes # 1.6 10*3/uL (1.4-4.0); Lymphocytes % 36.5 % (21.3-54.2); Mean Corpuscular HGB Conc 33.1 GM/DL (32-36); Mean Corpuscular Hemoglobin 31 PG (27-34); Mean Corpuscular Volume 94.6 FL (87-102); Mean Platelet Volume 11.9 FL (9.6-12.0); Monocytes # 0.4 10*3/uL (0.11-0.8); Monocytes % 8.5 % (1.7-12.7); Neutrophils # 2.2 10*3/uL (1.4-7.4); Neutrophils % 49.4 % (38.7-73.9); Platelet Count 406 T/CUMM (130-400); Red Blood Count 3.35 MC/CUMM (3.8-5.5); Red Cell Distribution Width 21.7 % (9.3-17.3); White Blood Count 4.5 T/CUMM (4-12)
[2017-06-01 07:56] LABS: Calcium 8.4 MG/DL (8.5-10.1); Osmolality,Calculated 274.8 MOS/KG (273-304); Potassium 3.4 MMOL/L (3.5-5.1)
[2017-06-01] MEDS: METOPROLOL SUCCINATE XL 25 MG TABLET PO SCH (10:02)
[2017-06-01] MEDS: DOCUSATE SODIUM 100 MG CAPSULE PO SCH ×2 (10:02→20:47)
[2017-06-01] MEDS: FERROUS SULFATE 325 MG TABLET PO SCH ×3 (10:03→20:47)
[2017-06-01] MEDS: DIGOXIN 0.125 MG TABLET PO SCH (10:03)
[2017-06-01] MEDS: predniSONE 20 MG TABLET PO SCH (10:04)
[2017-06-01] MEDS: POTASSIUM CHLORIDE 8 MEQ CAPSULE PO SCH ×2 (10:06→20:47)
[2017-06-01] MEDS: CYANOCOBALAMIN 500 MCG TABLET PO SCH ×4 (10:06→20:53)
[2017-06-01] MEDS: APIXABAN 2.5 MG TABLET PO SCH ×2 (10:07→20:47)
[2017-06-01] MEDS: LINACLOTIDE 145 MCG CAPSULE PO SCH (10:07)
[2017-06-01] MEDS: METHOCARBAMOL 1,000 MG/10 ML VIAL IV SCH ×2 (10:19→20:53)
[2017-06-01] MEDS: PANTOPRAZOLE 40 MG TABLET PO SCH (10:33)
[2017-06-01] MEDS: FUROSEMIDE 40 MG TABLET PO SCH ×2 (10:38→20:47)
[2017-06-01] MEDS: SODIUM CHLORIDE 0.9% 1,000 ML IV SCH (11:24)
[2017-06-01] MEDS: DULoxetine 30 MG CAPSULE PO SCH (20:47)
[2017-06-02] MEDS: LINACLOTIDE 145 MCG CAPSULE PO SCH (09:03)
[2017-06-02] MEDS: CYANOCOBALAMIN 500 MCG TABLET PO SCH ×3 (09:03→21:39)
[2017-06-02] MEDS: METOPROLOL SUCCINATE XL 25 MG TABLET PO SCH (09:04)
[2017-06-02] MEDS: FERROUS SULFATE 325 MG TABLET PO SCH ×3 (09:04→21:40)
[2017-06-02] MEDS: DOCUSATE SODIUM 100 MG CAPSULE PO SCH ×2 (09:05→21:40)
[2017-06-02] MEDS: predniSONE 20 MG TABLET PO SCH (09:06)
[2017-06-02] MEDS: POTASSIUM CHLORIDE 8 MEQ CAPSULE PO SCH ×2 (09:06→21:40)
[2017-06-02] MEDS: APIXABAN 2.5 MG TABLET PO SCH ×2 (09:06→21:40)
[2017-06-02] MEDS: FUROSEMIDE 40 MG TABLET PO SCH ×2 (09:06→21:40)
[2017-06-02] MEDS: METHOCARBAMOL 1,000 MG/10 ML VIAL IV SCH ×2 (09:12→21:42)
[2017-06-02] MEDS: PANTOPRAZOLE 40 MG TABLET PO SCH ×2 (09:19→22:08)
[2017-06-02 10:44] LABS: Basophils # 0.1 10*3/uL (0.0-0.2); Basophils % 1.2 % (0.0-0.8); Eosinophils # 0.2 10*3/uL (0.0-0.87); Eosinophils % 2.8 % (0.00-10.9); Hematocrit 33.6 VOL% (35.7-47.0); Immature Granulocytes % 0.5 %; Immature Granulocytes Absolute 0.04 #; Lymphocytes # 1.5 10*3/uL (1.4-4.0); Lymphocytes % 19.4 % (21.3-54.2); Mean Corpuscular HGB Conc 32.7 GM/DL (32-36); Mean Corpuscular Hemoglobin 31 PG (27-34); Mean Corpuscular Volume 95.5 FL (87-102); Mean Platelet Volume 11.8 FL (9.6-12.0); Monocytes # 0.5 10*3/uL (0.11-0.8); Monocytes % 6.5 % (1.7-12.7); Neutrophils # 5.4 10*3/uL (1.4-7.4); Neutrophils % 69.6 % (38.7-73.9); Platelet Count 427 T/CUMM (130-400); Red Blood Count 3.52 MC/CUMM (3.8-5.5); Red Cell Distribution Width 21.7 % (9.3-17.3); White Blood Count 7.8 T/CUMM (4-12)
[2017-06-02 11:22] LABS: Albumin 3.4 G/DL (3.4-5.0); Bilirubin,Total 0.5 MG/DL (0.2-1.0); Calcium 9.5 MG/DL (8.5-10.1); Osmolality,Calculated 273.1 MOS/KG (273-304); Potassium 3.3 MMOL/L (3.5-5.1)
[2017-06-02] MEDS ORDERED: TUBERCULIN SKIN TEST 0.1 ML SYRINGE INTRADERM ONE (14:45)
[2017-06-02] MEDS: DULoxetine 30 MG CAPSULE PO SCH (21:40)
[2017-06-03 08:22] VITALS: BP 143/82
[2017-06-03] MEDS: DOCUSATE SODIUM 100 MG CAPSULE PO SCH (09:31)
[2017-06-03] MEDS: APIXABAN 2.5 MG TABLET PO SCH (09:32)
[2017-06-03] MEDS: DIGOXIN 0.125 MG TABLET PO SCH (09:32)
[2017-06-03] MEDS: FUROSEMIDE 40 MG TABLET PO SCH (09:32)
[2017-06-03] MEDS: FERROUS SULFATE 325 MG TABLET PO SCH (09:32)
[2017-06-03] MEDS: CYANOCOBALAMIN 500 MCG TABLET PO SCH (09:33)
[2017-06-03] MEDS: PANTOPRAZOLE 40 MG TABLET PO SCH (09:33)
[2017-06-03] MEDS: predniSONE 20 MG TABLET PO SCH (09:33)
[2017-06-03] MEDS: LINACLOTIDE 145 MCG CAPSULE PO SCH (09:33)
[2017-06-03] MEDS: METOPROLOL SUCCINATE XL 25 MG TABLET PO SCH (09:33)
[2017-06-03] MEDS: POTASSIUM CHLORIDE 8 MEQ CAPSULE PO SCH (10:07)
[2017-06-03] MEDS: METHOCARBAMOL 1,000 MG/10 ML VIAL IV SCH (11:08)
== END 2017-06-03 12:00 | disposition swing bed (61) | DRG 563 ==
LOC: EDBD → EDUNIT# → N.ED 14:09 → N.EDINP 14:09 → N.3E 20:20
PROVIDERS: ADMIT Internal Medicine; ATTEND Internal Medicine

== ENCOUNTER 2017-07-25 19:19 | Inpatient (IN) ==
[2017-07-25] MEDS ORDERED: ALBUTEROL/IPRATROPIUM 3 ML NEB RESP TX STA (20:15)
[2017-07-25 20:39] LABS: Basophils % 0.3 % (0.0-0.8); Eosinophils % 0.2 % (0.00-10.9); Hematocrit 26.7 VOL% (35.7-47.0); Hemoglobin 8.9 GM/DL (12.0-16.0); Immature Granulocytes % 0.9 %; Lymphocytes # 0.8 10*3/uL (1.4-4.0); Lymphocytes % 7.1 % (21.3-54.2); Mean Corpuscular HGB Conc 33.3 GM/DL (32-36); Mean Corpuscular Hemoglobin 32 PG (27-34); Mean Corpuscular Volume 95.7 FL (87-102); Mean Platelet Volume 12.4 FL (9.6-12.0); Monocytes # 0.8 10*3/uL (0.11-0.8); Monocytes % 7.4 % (1.7-12.7); Neutrophils # 9.3 10*3/uL (1.4-7.4); Neutrophils % 84.1 % (38.7-73.9); Platelet Count 414 T/CUMM (130-400); Red Blood Count 2.79 MC/CUMM (3.8-5.5); Red Cell Distribution Width 20.6 % (9.3-17.3); White Blood Count 11.1 T/CUMM (4-12)
[2017-07-25 20:49] LABS: PT Patient Result 10.2 SECS
[2017-07-25 21:09] LABS: Alanine Aminotransferase 22 U/L (13-56); Albumin 3.1 G/DL (3.4-5.0); Alkaline Phosphatase 108 U/L (45-117); Aspartate Amino Transferase 17 U/L (0-37); Blood Urea Nitrogen 21 MG/DL (7-18); Calcium 9.3 MG/DL (8.5-10.1); Glucose 128 MG/DL (74-106); Osmolality,Calculated 270.4 MOS/KG (273-304); Potassium 5.1 MMOL/L (3.5-5.1); Sodium 133 MMOL/L (136-145); Total Protein 7.2 G/DL (6.4-8.3); Troponin I Only < 0.015 NG/ML (0.00-0.045)
[2017-07-25] MEDS ORDERED: HYDROmorphone 2 MG/1 ML VIAL IV STA (21:25)
[2017-07-25] MEDS ORDERED: HYDROmorphone 2 MG/1 ML VIAL ONE (21:27)
[2017-07-25 21:34] LABS: Apearance,Urine CLEAR (Clear); Bilirubin,Urine Negative (Negative); Blood, Urine Negative (Negative); Glucose,Urine (UA) 50 mg/dL (Negative); Hyaline Casts,Urine 1 /LPF (0-3); Ketones,Urine Negative (Negative); Mucus,Urine Occasional /LPF (Occasional); Nitrite,Urine Negative (Negative); Protein,Urine Negative; Urine Color Yellow (Yellow); Urine Specific Gravity 1.012 (1.001-1.035); Urine Urobilinogen < 2.0 EU/DL (0.2-1.0); WBC,Urine <1 /HPF (0-6)
[2017-07-26] MEDS ORDERED: HYDROmorphone 2 MG/1 ML VIAL IV PRN ×2 (02:05→02:28)
[2017-07-26] MEDS ORDERED: ONDANSETRON ODT 4 MG TABLET PO PRN (02:28)
[2017-07-26] MEDS ORDERED: ACETAMINOPHEN 325 MG TABLET PO PRN (02:28)
[2017-07-26] MEDS ORDERED: ONDANSETRON 4 MG/2 ML VIAL IV PRN (02:28)
[2017-07-26] MEDS: SODIUM CHLORIDE 0.9% 1,000 ML IV SCH (03:10)
[2017-07-26 04:35] LABS: Apearance,Urine CLEAR (Clear); Bilirubin,Urine Negative (Negative); Blood, Urine Negative (Negative); Glucose,Urine (UA) Negative (Negative); Hyaline Casts,Urine 3 /LPF (0-3); Ketones,Urine Negative (Negative); Mucus,Urine Occasional /LPF (Occasional); Nitrite,Urine Negative (Negative); Protein,Urine 30 MG/DL; RBC,Urine 2 /HPF (0-4); Squamous Epithelial Cell,Urine Occasional /HPF (0-10); Urine Color Yellow (Yellow); Urine Specific Gravity 1.016 (1.001-1.035); Urine Urobilinogen < 2.0 EU/DL (0.2-1.0); WBC,Urine 15 /HPF (0-6)
[2017-07-26 05:12] LABS: Basophils % 0.4 % (0.0-0.8); Eosinophils # 0.1 10*3/uL (0.0-0.87); Eosinophils % 1.1 % (0.00-10.9); Hematocrit 25.8 VOL% (35.7-47.0); Hemoglobin 8.6 GM/DL (12.0-16.0); Immature Granulocytes % 0.9 %; Immature Granulocytes Absolute 0.07 #; Lymphocytes # 1.1 10*3/uL (1.4-4.0); Lymphocytes % 14.5 % (21.3-54.2); Mean Corpuscular HGB Conc 33.3 GM/DL (32-36); Mean Corpuscular Hemoglobin 32 PG (27-34); Mean Platelet Volume 12.6 FL (9.6-12.0); Monocytes # 0.6 10*3/uL (0.11-0.8); Monocytes % 7.8 % (1.7-12.7); Neutrophils # 5.6 10*3/uL (1.4-7.4); Neutrophils % 75.3 % (38.7-73.9); Platelet Count 371 T/CUMM (130-400); Red Blood Count 2.66 MC/CUMM (3.8-5.5); Red Cell Distribution Width 21.2 % (9.3-17.3); White Blood Count 7.4 T/CUMM (4-12)
[2017-07-26 05:28] LABS: Albumin 2.9 G/DL (3.4-5.0); Bilirubin,Total 0.7 MG/DL (0.2-1.0); Calcium 9.1 MG/DL (8.5-10.1); Osmolality,Calculated 277.8 MOS/KG (273-304); Potassium 5.1 MMOL/L (3.5-5.1)
[2017-07-26] MEDS ORDERED: traMADol 50 MG TABLET PO SCH (09:00)
[2017-07-26] MEDS ORDERED: NON-FORMULARY MEDICATION (Biotin [Biotin] 1,000 MCG) PO SCH (09:00)
[2017-07-26] MEDS ORDERED: NON-FORMULARY MEDICATION (Omeprazole [Prilosec] 40 MG) PO SCH (09:00)
[2017-07-26] MEDS: PANTOPRAZOLE 40 MG VIAL IV SCH (09:01)
[2017-07-26] MEDS: DOCUSATE SODIUM 100 MG CAPSULE PO SCH ×2 (09:01→21:29)
[2017-07-26] MEDS: AMOXICILLIN/CLAV 875 MG TABLET PO SCH ×2 (09:01→21:29)
[2017-07-26] MEDS: METHOCARBAMOL 750 MG TABLET PO SCH ×4 (09:02→21:29)
[2017-07-26] MEDS: BENZONATATE 100 MG CAPSULE PO SCH ×3 (09:02→21:30)
[2017-07-26] MEDS: CYANOCOBALAMIN 500 MCG TABLET PO SCH ×3 (09:02→21:29)
[2017-07-26] MEDS: FUROSEMIDE 40 MG TABLET PO SCH ×2 (09:02→16:09)
[2017-07-26] MEDS: FERROUS SULFATE 325 MG TABLET PO SCH ×3 (09:03→21:29)
[2017-07-26] MEDS: POTASSIUM CHLORIDE 8 MEQ CAPSULE PO SCH ×2 (09:03→21:29)
[2017-07-26] MEDS: LINACLOTIDE 145 MCG CAPSULE PO SCH (09:03)
[2017-07-26] MEDS: METOPROLOL SUCCINATE XL 25 MG TABLET PO SCH (09:03)
[2017-07-26] MEDS: predniSONE 20 MG TABLET PO SCH (09:03)
[2017-07-26] MEDS: ALBUTEROL/IPRATROPIUM 3 ML NEB RESP TX SCH ×2 (12:40→19:33)
[2017-07-26] MEDS: fentaNYL 12 MCG/HR PATCH TRANSDERM SCH (16:15)
[2017-07-26] MEDS: DULoxetine 30 MG CAPSULE PO SCH (21:29)
[2017-07-26] MEDS: oxyCODONE/ACETAMINOPHEN 5-325 MG TABLET PO PRN (23:44)
[2017-07-27] MEDS: DILTIAZEM INJ 100 MG in SODIUM CHLORIDE 0.9% 100 ML IV SCH ×2 (00:19→22:44)
[2017-07-27] MEDS: ALBUTEROL/IPRATROPIUM 3 ML NEB RESP TX SCH ×4 (00:21→20:40)
[2017-07-27] MEDS: DIGOXIN 0.125 MG TABLET PO SCH (02:00)
[2017-07-27 05:18] LABS: Basophils % 0.5 % (0.0-0.8); Eosinophils # 0.1 10*3/uL (0.0-0.87); Eosinophils % 1.6 % (0.00-10.9); Hematocrit 24.5 VOL% (35.7-47.0); Hemoglobin 7.9 GM/DL (12.0-16.0); Immature Granulocytes % 0.7 %; Immature Granulocytes Absolute 0.05 #; Lymphocytes # 1.4 10*3/uL (1.4-4.0); Lymphocytes % 18.2 % (21.3-54.2); Mean Corpuscular HGB Conc 32.2 GM/DL (32-36); Mean Corpuscular Hemoglobin 32 PG (27-34); Mean Corpuscular Volume 99.6 FL (87-102); Mean Platelet Volume 12.4 FL (9.6-12.0); Monocytes # 0.5 10*3/uL (0.11-0.8); Neutrophils # 5.4 10*3/uL (1.4-7.4); Platelet Count 445 T/CUMM (130-400); Red Blood Count 2.46 MC/CUMM (3.8-5.5); White Blood Count 7.4 T/CUMM (4-12)
[2017-07-27] MEDS ORDERED: SODIUM CHLORIDE 0.9% 1,000 ML IV PRN (05:34)
[2017-07-27 05:54] LABS: Calcium 9.2 MG/DL (8.5-10.1); Osmolality,Calculated 280.8 MOS/KG (273-304); Potassium 5.3 MMOL/L (3.5-5.1)
[2017-07-27] MEDS: CYANOCOBALAMIN 500 MCG TABLET PO SCH ×3 (09:11→22:41)
[2017-07-27] MEDS: POTASSIUM CHLORIDE 8 MEQ CAPSULE PO SCH ×2 (09:12→22:42)
[2017-07-27] MEDS: DOCUSATE SODIUM 100 MG CAPSULE PO SCH ×2 (09:12→22:42)
[2017-07-27] MEDS: METHOCARBAMOL 750 MG TABLET PO SCH ×4 (09:12→22:41)
[2017-07-27] MEDS: METOPROLOL SUCCINATE XL 25 MG TABLET PO SCH (09:12)
[2017-07-27] MEDS: BENZONATATE 100 MG CAPSULE PO SCH ×3 (09:12→22:42)
[2017-07-27] MEDS: FUROSEMIDE 40 MG TABLET PO SCH ×2 (09:13→15:05)
[2017-07-27] MEDS: FERROUS SULFATE 325 MG TABLET PO SCH ×3 (09:13→22:42)
[2017-07-27] MEDS: LINACLOTIDE 145 MCG CAPSULE PO SCH (09:13)
[2017-07-27] MEDS: AMOXICILLIN/CLAV 875 MG TABLET PO SCH ×2 (09:13→22:43)
[2017-07-27] MEDS: oxyCODONE/ACETAMINOPHEN 5-325 MG TABLET PO PRN (09:13)
[2017-07-27] MEDS: PANTOPRAZOLE 40 MG VIAL IV SCH (09:23)
[2017-07-27] MEDS: predniSONE 20 MG TABLET PO SCH (09:23)
[2017-07-27] MEDS: SODIUM CHLORIDE 0.9% 1,000 ML IV SCH ×3 (12:55→17:53)
[2017-07-27] MEDS: DULoxetine 30 MG CAPSULE PO SCH (22:42)
[2017-07-28] MEDS: DILTIAZEM INJ 100 MG in SODIUM CHLORIDE 0.9% 100 ML IV SCH (00:44)
[2017-07-28] MEDS: ALBUTEROL/IPRATROPIUM 3 ML NEB RESP TX SCH ×4 (01:40→19:38)
[2017-07-28 04:49] LABS: Basophils % 0.7 % (0.0-0.8); Eosinophils # 0.1 10*3/uL (0.0-0.87); Eosinophils % 2.1 % (0.00-10.9); Hematocrit 29.4 VOL% (35.7-47.0); Hemoglobin 10.1 GM/DL (12.0-16.0); Immature Granulocytes % 0.7 %; Immature Granulocytes Absolute 0.04 #; Lymphocytes # 1.3 10*3/uL (1.4-4.0); Lymphocytes % 22.2 % (21.3-54.2); Mean Corpuscular HGB Conc 34.4 GM/DL (32-36); Mean Corpuscular Hemoglobin 31 PG (27-34); Mean Platelet Volume 12.4 FL (9.6-12.0); Monocytes # 0.4 10*3/uL (0.11-0.8); Monocytes % 7.8 % (1.7-12.7); Neutrophils # 3.7 10*3/uL (1.4-7.4); Neutrophils % 66.5 % (38.7-73.9); Platelet Count 371 T/CUMM (130-400); Red Blood Count 3.23 MC/CUMM (3.8-5.5); Red Cell Distribution Width 18.6 % (9.3-17.3); White Blood Count 5.6 T/CUMM (4-12)
[2017-07-28 05:15] LABS: Calcium 8.3 MG/DL (8.5-10.1); Osmolality,Calculated 274.1 MOS/KG (273-304); Potassium 3.9 MMOL/L (3.5-5.1)
[2017-07-28] MEDS: CYANOCOBALAMIN 500 MCG TABLET PO SCH ×3 (09:52→22:49)
[2017-07-28] MEDS: AMOXICILLIN/CLAV 875 MG TABLET PO SCH ×2 (09:53→22:49)
[2017-07-28] MEDS: METHOCARBAMOL 750 MG TABLET PO SCH ×4 (09:53→22:50)
[2017-07-28] MEDS: METOPROLOL SUCCINATE XL 25 MG TABLET PO SCH (09:53)
[2017-07-28] MEDS: LINACLOTIDE 145 MCG CAPSULE PO SCH (09:53)
[2017-07-28] MEDS: FERROUS SULFATE 325 MG TABLET PO SCH ×3 (09:54→22:49)
[2017-07-28] MEDS: predniSONE 20 MG TABLET PO SCH (09:54)
[2017-07-28] MEDS: FUROSEMIDE 40 MG TABLET PO SCH ×2 (09:54→15:34)
[2017-07-28] MEDS: BENZONATATE 100 MG CAPSULE PO SCH ×3 (09:54→22:49)
[2017-07-28] MEDS: PANTOPRAZOLE 40 MG VIAL IV SCH (09:55)
[2017-07-28] MEDS: DOCUSATE SODIUM 100 MG CAPSULE PO SCH ×2 (09:55→22:50)
[2017-07-28] MEDS: POTASSIUM CHLORIDE 8 MEQ CAPSULE PO SCH ×2 (09:55→22:50)
[2017-07-28] MEDS: SODIUM CHLORIDE 0.9% 1,000 ML IV SCH ×2 (10:59→22:50)
[2017-07-28] MEDS: POLYETHYLENE GLYCOL POWDER 17 GM PACK PO SCH (13:15)
[2017-07-28] MEDS: DILTIAZEM CD 240 MG CAPSULE PO SCH (13:20)
[2017-07-28] MEDS ORDERED: ERGOCALCIFEROL 50,000 UNIT CAPSULE PO SCH (14:00)
[2017-07-28] MEDS ORDERED: diphenhydrAMINE CAP 25 MG CAPSULE ONE (15:31)
[2017-07-28] MEDS ORDERED: diphenhydrAMINE CAP 25 MG CAPSULE PO PRN (15:32)
[2017-07-28] MEDS: CALCIUM (CARBONATE)/VITAMIN D 600 MG-400 UNIT TABLET PO SCH (22:49)
[2017-07-28] MEDS: DULoxetine 30 MG CAPSULE PO SCH (22:50)
[2017-07-29] MEDS: ALBUTEROL/IPRATROPIUM 3 ML NEB RESP TX SCH ×2 (00:19→06:52)
[2017-07-29] MEDS: DILTIAZEM INJ 100 MG in SODIUM CHLORIDE 0.9% 100 ML IV SCH (01:04)
[2017-07-29] MEDS: DIGOXIN 0.125 MG TABLET PO SCH (01:08)
[2017-07-29] MEDS: SODIUM CHLORIDE 0.9% 1,000 ML IV SCH ×2 (01:08→10:32)
[2017-07-29 05:36] LABS: Basophils # 0.1 10*3/uL (0.0-0.2); Basophils % 1.1 % (0.0-0.8); Eosinophils # 0.1 10*3/uL (0.0-0.87); Eosinophils % 2.5 % (0.00-10.9); Hematocrit 34.1 VOL% (35.7-47.0); Hemoglobin 11.8 GM/DL (12.0-16.0); Immature Granulocytes % 0.8 %; Immature Granulocytes Absolute 0.04 #; Lymphocytes # 1.2 10*3/uL (1.4-4.0); Lymphocytes % 25.9 % (21.3-54.2); Mean Corpuscular HGB Conc 34.6 GM/DL (32-36); Mean Corpuscular Hemoglobin 32 PG (27-34); Mean Corpuscular Volume 92.4 FL (87-102); Mean Platelet Volume 12.4 FL (9.6-12.0); Monocytes # 0.4 10*3/uL (0.11-0.8); Monocytes % 8.2 % (1.7-12.7); Neutrophils # 2.9 10*3/uL (1.4-7.4); Neutrophils % 61.5 % (38.7-73.9); Platelet Count 401 T/CUMM (130-400); Red Blood Count 3.69 MC/CUMM (3.8-5.5); Red Cell Distribution Width 19.3 % (9.3-17.3); White Blood Count 4.7 T/CUMM (4-12)
[2017-07-29 08:00] VITALS: BP 145/64
[2017-07-29] MEDS: POLYETHYLENE GLYCOL POWDER 17 GM PACK PO SCH (09:23)
[2017-07-29] MEDS: LINACLOTIDE 145 MCG CAPSULE PO SCH (09:23)
[2017-07-29] MEDS: BENZONATATE 100 MG CAPSULE PO SCH (09:24)
[2017-07-29] MEDS: PANTOPRAZOLE 40 MG VIAL IV SCH (09:24)
[2017-07-29] MEDS: predniSONE 20 MG TABLET PO SCH (09:24)
[2017-07-29] MEDS: DOCUSATE SODIUM 100 MG CAPSULE PO SCH (09:24)
[2017-07-29] MEDS: CYANOCOBALAMIN 500 MCG TABLET PO SCH (09:24)
[2017-07-29] MEDS: DILTIAZEM CD 240 MG CAPSULE PO SCH (09:25)
[2017-07-29] MEDS: METOPROLOL SUCCINATE XL 25 MG TABLET PO SCH (09:25)
[2017-07-29] MEDS: FUROSEMIDE 40 MG TABLET PO SCH (09:25)
[2017-07-29] MEDS: CALCIUM (CARBONATE)/VITAMIN D 600 MG-400 UNIT TABLET PO SCH (09:25)
[2017-07-29] MEDS: AMOXICILLIN/CLAV 875 MG TABLET PO SCH (09:25)
[2017-07-29] MEDS: POTASSIUM CHLORIDE 8 MEQ CAPSULE PO SCH (09:25)
[2017-07-29] MEDS: FERROUS SULFATE 325 MG TABLET PO SCH (09:25)
[2017-07-29] MEDS: fentaNYL 12 MCG/HR PATCH TRANSDERM SCH (09:26)
== END 2017-07-29 12:28 | disposition swing bed (61) | DRG 378 ==
LOC: EDUNIT# → EDBD → N.ED 19:19 → N.EDINP 07-26 00:38 → N.ICU 07-26 01:04 → N.TELEN 07-26 13:12
PROVIDERS: ADMIT Internal Medicine; ATTEND Internal Medicine

== ENCOUNTER 2017-09-11 20:16 | Inpatient (IN) ==
[2017-09-11] MEDS ORDERED: methylPREDNISolone SOD SUC 125 MG/2 ML VIAL IV STA (20:46)
[2017-09-11] MEDS ORDERED: ALBUTEROL 2.5 MG/3 ML NEB RESP TX SCH (21:00)
[2017-09-11 21:47] LABS: Basophils # 0.1 10*3/uL (0.0-0.2); Eosinophils # 0.4 10*3/uL (0.0-0.87); Eosinophils % 4.2 % (0.00-10.9); Hematocrit 27.1 VOL% (35.7-47.0); Hemoglobin 8.3 GM/DL (12.0-16.0); Immature Granulocytes Absolute 0.09 #; Lymphocytes # 1.9 10*3/uL (1.4-4.0); Lymphocytes % 20.5 % (21.3-54.2); Mean Corpuscular HGB Conc 30.6 GM/DL (32-36); Mean Corpuscular Hemoglobin 30 PG (27-34); Mean Corpuscular Volume 97.5 FL (87-102); Mean Platelet Volume 13.8 FL (9.6-12.0); Monocytes # 0.4 10*3/uL (0.11-0.8); Monocytes % 3.8 % (1.7-12.7); NRBC # 0.02 10*3/uL; Neutrophils # 6.5 10*3/uL (1.4-7.4); Neutrophils % 69.5 % (38.7-73.9); Platelet Count 430 T/CUMM (130-400); Red Blood Count 2.78 MC/CUMM (3.8-5.5); Red Cell Distribution Width 19.5 % (9.3-17.3); White Blood Count 9.3 T/CUMM (4-12)
[2017-09-11 21:59] LABS: PT Patient Result 10.3 SECS
[2017-09-11] MEDS ORDERED: ACETAMINOPHEN 650 MG SUPP RECTAL ONE (22:02)
[2017-09-11 22:04] LABS: Band Neutrophils 2 % (0-10); Eosinophils 7 % (0-10); Lymphocytes 22 % (20-55); Segmented Neutrophils 68 % (50-85); Total Cells Counted 100
[2017-09-11 22:05] LABS: Anisocytosis Slight; Atypical Lymphocytes Few; Microcytosis 1+
[2017-09-11 22:06] LABS: Platelet Estimate Adequate
[2017-09-11 22:28] LABS: Alanine Aminotransferase 59 U/L (13-56); Albumin 2.5 G/DL (3.4-5.0); Alkaline Phosphatase 114 U/L (45-117); Aspartate Amino Transferase 247 U/L (0-37); Blood Urea Nitrogen 50 MG/DL (7-18); Calcium 9.1 MG/DL (8.5-10.1); Glucose 137 MG/DL (74-106); Osmolality,Calculated 308.3 MOS/KG (273-304); Potassium 4.2 MMOL/L (3.5-5.1); Sodium 148 MMOL/L (136-145); Total Protein 6.9 G/DL (6.4-8.3)
[2017-09-11 22:35] LABS: Apearance,Urine CLOUDY (Clear); Bilirubin,Urine Negative (Negative); Blood, Urine Large mg/dL (Negative); Glucose,Urine (UA) Negative (Negative); Ketones,Urine Negative (Negative); Nitrite,Urine Negative (Negative); Protein,Urine 30 MG/DL; Squamous Epithelial Cell,Urine Occasional /HPF (0-10); Urine Color Yellow (Yellow); Urine Specific Gravity 1.016 (1.001-1.035); Urine Urobilinogen < 2.0 EU/DL (0.2-1.0)
[2017-09-11] MEDS ORDERED: methylPREDNISolone SOD SUC 125 MG/2 ML VIAL ONE ×2 (22:36→22:48)
[2017-09-11 22:37] LABS: Troponin I Only 0.233 NG/ML (0.00-0.045)
[2017-09-11] MEDS ORDERED: DILTIAZEM 50 MG/10 ML VIAL IV ONE ×2 (22:54→23:01)
[2017-09-11] MEDS ORDERED: DILTIAZEM 50 MG/10 ML VIAL IV STA (22:58)
[2017-09-11] MEDS ORDERED: DILTIAZEM 100 MG VIAL.ADD IV ONE (23:01)
[2017-09-12] MEDS: DILTIAZEM INJ 100 MG in SODIUM CHLORIDE 0.9% 100 ML IV SCH (00:06)
[2017-09-12] MEDS ORDERED: ONDANSETRON 4 MG/2 ML VIAL IV PRN (00:58)
[2017-09-12] MEDS: MORPHINE 4 MG/1 ML VIAL IV PRN ×2 (01:03→18:06)
[2017-09-12] MEDS: SODIUM CHLORIDE 0.9% 1,000 ML IV SCH ×3 (01:11→16:45)
[2017-09-12] MEDS: cefTRIAXone 1,000 MG in SYRINGE 1 EACH IV SCH (01:15)
[2017-09-12] MEDS ORDERED: ACETAMINOPHEN 650 MG SUPP RECTAL PRN (01:41)
[2017-09-12] MEDS: ALBUTEROL/IPRATROPIUM 3 ML NEB RESP TX SCH ×6 (02:28→23:08)
[2017-09-12] MEDS ORDERED: ACETAMINOPHEN 650 MG SUPP RECTAL ONE (06:37)
[2017-09-12 06:42] LABS: Amorphous Crystals,Urine Occasional /HPF (Few); Apearance,Urine CLOUDY (Clear); Bacteria,Urine Few /HPF (Few); Bilirubin,Urine Negative (Negative); Blood, Urine Large mg/dL (Negative); Glucose,Urine (UA) Negative (Negative); Ketones,Urine Negative (Negative); Nitrite,Urine Negative (Negative); Protein,Urine 30 MG/DL; RBC,Urine 9 /HPF (0-4); Squamous Epithelial Cell,Urine Occasional /HPF (0-10); Urine Color Amber (Yellow); Urine Specific Gravity 1.018 (1.001-1.035); Urine Urobilinogen < 2.0 EU/DL (0.2-1.0); WBC,Urine 30 /HPF (0-6)
[2017-09-12 06:48] LABS: Basophils % 0.4 % (0.0-0.8); Hematocrit 25.3 VOL% (35.7-47.0); Hemoglobin 7.7 GM/DL (12.0-16.0); Immature Granulocytes Absolute 0.08 #; Lymphocytes # 0.5 10*3/uL (1.4-4.0); Lymphocytes % 6.5 % (21.3-54.2); Mean Corpuscular HGB Conc 30.4 GM/DL (32-36); Mean Corpuscular Hemoglobin 31 PG (27-34); Mean Corpuscular Volume 100.8 FL (87-102); Mean Platelet Volume 13.9 FL (9.6-12.0); Monocytes # 0.2 10*3/uL (0.11-0.8); Neutrophils # 7.5 10*3/uL (1.4-7.4); Neutrophils % 90.1 % (38.7-73.9); Platelet Count 356 T/CUMM (130-400); Red Blood Count 2.51 MC/CUMM (3.8-5.5); Red Cell Distribution Width 19.4 % (9.3-17.3); White Blood Count 8.4 T/CUMM (4-12)
[2017-09-12 07:12] LABS: Band Neutrophils 7 % (0-10); Lymphocytes 2 % (20-55); Segmented Neutrophils 90 % (50-85); Total Cells Counted 100
[2017-09-12 07:13] LABS: Macrocytosis 1+; Platelet Estimate Normal
[2017-09-12 07:33] LABS: Alanine Aminotransferase 52 U/L (13-56); Albumin 2.2 G/DL (3.4-5.0); Alkaline Phosphatase 93 U/L (45-117); Aspartate Amino Transferase 174 U/L (0-37); Blood Urea Nitrogen 62 MG/DL (7-18); Calcium 8.1 MG/DL (8.5-10.1); Glucose 225 MG/DL (74-106); Osmolality,Calculated 316.4 MOS/KG (273-304); Potassium 4.6 MMOL/L (3.5-5.1); Sodium 147 MMOL/L (136-145); Total Protein 6.2 G/DL (6.4-8.3)
[2017-09-12 07:35] LABS: Troponin I Only 0.123 NG/ML (0.00-0.045)
[2017-09-12] MEDS ORDERED: ACETAMINOPHEN 325 MG TABLET PEG PRN (08:21)
[2017-09-12] MEDS ORDERED: NITROGLYCERIN 2% OINT 1 INCH/GM PACK TOP SCH (09:00)
[2017-09-12] MEDS: CLINDAMYCIN INJ 300 MG in PREMIX 1 EACH IV SCH ×2 (09:57→17:00)
[2017-09-12] MEDS: ATORVASTATIN 40 MG TABLET PEG SCH (09:57)
[2017-09-12] MEDS: DILTIAZEM 60 MG TABLET PO SCH ×4 (09:57→20:43)
[2017-09-12] MEDS: predniSONE 10 MG TABLET PO SCH (09:58)
[2017-09-12] MEDS: DOCUSATE SODIUM 100 MG CAPSULE PO SCH ×3 (09:58→20:43)
[2017-09-12] MEDS: PANTOPRAZOLE 40 MG VIAL IV SCH (09:58)
[2017-09-12] MEDS: methylPREDNISolone SOD SUC 40 MG/1 ML VIAL IV SCH ×2 (09:58→17:01)
[2017-09-12] MEDS ORDERED: FUROSEMIDE 40 MG/4 ML VIAL IV ONE (11:00)
[2017-09-12] MEDS: ZINC OXIDE PASTE 113 GM TUBE TOP SCH ×2 (16:44→20:47)
[2017-09-12] MEDS: CHLORHEXIDINE 0.12% ORAL RINSE 60 ML BOTTLE SWISH/SPIT SCH (20:43)
[2017-09-13] MEDS: cefTRIAXone 1,000 MG in SYRINGE 1 EACH IV SCH (00:32)
[2017-09-13] MEDS: CLINDAMYCIN INJ 300 MG in PREMIX 1 EACH IV SCH ×2 (00:32→07:59)
[2017-09-13] MEDS: methylPREDNISolone SOD SUC 40 MG/1 ML VIAL IV SCH (00:39)
[2017-09-13] MEDS: MORPHINE 4 MG/1 ML VIAL IV PRN ×4 (00:56→14:09)
[2017-09-13] MEDS: SODIUM CHLORIDE 0.9% 1,000 ML IV SCH (00:57)
[2017-09-13] MEDS: DILTIAZEM INJ 100 MG in SODIUM CHLORIDE 0.9% 100 ML IV SCH (01:03)
[2017-09-13] MEDS: ALBUTEROL/IPRATROPIUM 3 ML NEB RESP TX SCH ×3 (03:12→11:20)
[2017-09-13 04:50] LABS: Basophils % 0.2 % (0.0-0.8); Hematocrit 28.8 VOL% (35.7-47.0); Hemoglobin 8.8 GM/DL (12.0-16.0); Immature Granulocytes % 1.1 %; Immature Granulocytes Absolute 0.13 #; Lymphocytes # 0.6 10*3/uL (1.4-4.0); Lymphocytes % 5.2 % (21.3-54.2); Mean Corpuscular HGB Conc 30.6 GM/DL (32-36); Mean Corpuscular Hemoglobin 27 PG (27-34); Mean Corpuscular Volume 88.3 FL (87-102); Mean Platelet Volume 14.2 FL (9.6-12.0); Monocytes # 0.2 10*3/uL (0.11-0.8); Monocytes % 1.8 % (1.7-12.7); Neutrophils # 10.4 10*3/uL (1.4-7.4); Neutrophils % 91.7 % (38.7-73.9); Platelet Count 349 T/CUMM (130-400); Red Blood Count 3.26 MC/CUMM (3.8-5.5); Red Cell Distribution Width 25.5 % (9.3-17.3); White Blood Count 11.3 T/CUMM (4-12)
[2017-09-13 05:07] LABS: Band Neutrophils 3 % (0-10); Burr Cells Slight; Giant Platelets Few; Hypochromasia 1+; Lymphocytes 2 % (20-55); Ovalocytes Slight; Platelet Estimate Adequate; Segmented Neutrophils 92 % (50-85); Total Cells Counted 100
[2017-09-13 05:08] LABS: Microcytosis Slight
[2017-09-13 05:21] LABS: Calcium 7.5 MG/DL (8.5-10.1); Osmolality,Calculated 316.7 MOS/KG (273-304); Potassium 4.3 MMOL/L (3.5-5.1)
[2017-09-13] MEDS: DILTIAZEM 60 MG TABLET PO SCH ×2 (08:00→12:34)
[2017-09-13] MEDS: PANTOPRAZOLE 40 MG VIAL IV SCH (08:01)
[2017-09-13] MEDS: DOCUSATE SODIUM 100 MG CAPSULE PO SCH (08:01)
[2017-09-13] MEDS: predniSONE 10 MG TABLET PO SCH (08:02)
[2017-09-13] MEDS ORDERED: DOCUSATE SODIUM 100 MG/10 ML UDCUP PO SCH (09:00)
[2017-09-13] MEDS: ZINC OXIDE PASTE 113 GM TUBE TOP SCH (09:00)
[2017-09-13] MEDS: CHLORHEXIDINE 0.12% ORAL RINSE 60 ML BOTTLE SWISH/SPIT SCH (09:00)
[2017-09-13] MEDS: ATORVASTATIN 40 MG TABLET PEG SCH (12:34)
[2017-09-13] MEDS ORDERED: VANCOMYCIN INJ 1,000 MG in SODIUM CHLORIDE 0.9% 250 ML IV ONE (13:30)
[2017-09-13 13:47] VITALS: BP 127/55
== END 2017-09-13 15:45 | DRG 811 ==
LOC: EDUNIT# → EDBD → N.ED 20:16 → N.EDINP 22:59 → N.ICU 23:20
PROVIDERS: ADMIT Internal Medicine; ATTEND Internal Medicine